=== PATIENT | male | born 1955 | race Caucasian/White ===

== ENCOUNTER 2020-03-26 14:25 | Outpatient (REF) | payer OTHER, SELFPAY ==
[2020-03-26 17:32] LABS: Influenza A PCR NEGATIVE (Negative); Influenza B PCR NEGATIVE (Negative); Resp Syncy Virus RNA Qual PCR NEGATIVE (Negative); SARS COV2 PCR INHOUSE NEGATIVE (Negative)
== END 2020-03-26 14:26 | disposition home or self-care (01) ==
LOC: HO.LAB 14:25
PROVIDERS: Visit Provider Nurse Practitioner Family
DX: Z20.828 Contact with and (suspected) exposure to other viral communicable diseases (principal); R06.02 Shortness of breath
CPT/HCPCS: 0241U

== ENCOUNTER 2020-04-30 11:23 | Inpatient (IN) | payer OTHER, SELFPAY ==
[2020-04-30] VITALS (7 sets, daily range): BP systolic 126–179; BP diastolic 81–100; PULSE 89–109; RESP 18–20; TEMP 36.9–39.2; O2SAT 88–98; BMI 34.0
--- NOTE | 2020-04-30 | XR_ITS ---
EXAMINATION: XR CHEST CLINICAL INFORMATION: Hypoxia COMPARISON: None TECHNIQUE: Frontal view of the chest was obtained. FINDINGS: The cardiac silhouette does not appear enlarged. There is question of increased right perihilar lung markings.. The lungs are otherwise clear. There is no pleural effusion or pneumothorax. There are degenerative changes of the spine. XR/XR chest 1V IMPRESSION: Question increased right perihilar lung markings. Otherwise unremarkable exam.
--- NOTE | 2020-04-30 12:22 | ECG_ITS ---
Test Reason : FEVER Blood Pressure : / mmHG Vent. Rate : 087 BPM Atrial Rate : 087 BPM P-R Int : 156 ms QRS Dur : 084 ms QT Int : 374 ms P-R-T Axes : 042 -18 -15 degrees QTc Int : 450 ms Normal sinus rhythm Inferior infarct , age undetermined Abnormal ECG No previous ECGs available Referred By: Chivo Willis Electronically Signed By:Jadon Fink
--- NOTE | 2020-04-30 12:30 | ED_ITS ---
HPI - General Adult General Chief complaint: Fever Stated complaint: covid symptoms Time Seen by Provider: 04/30/20 13:43 Source: patient Mode of arrival: ambulatory Limitations: no limitations History of Present Illness HPI narrative: Patient presents to ED for chest pain when coughing, weakness, headache, and body ache for the past 3 days. Patient states recently tested positive for COVID-19 virus 4 days ago. Patient states family members also tested positive. Patient denies any shortness of breath. Patient states no swelling of lower extremity, calf pain, coughing up blood, recent surgery, or recent travel. Related Data Home Medications Medication Instructions Recorded Confirmed aspirin 81 mg PO DAILY 04/30/20 04/30/20 celecoxib 200 mg PO DAILY 04/30/20 04/30/20 empagliflozin [Jardiance] 10 mg PO DAILY 04/30/20 04/30/20 folic acid 1 mg PO DAILY 04/30/20 04/30/20 gabapentin 300 mg PO TID 04/30/20 04/30/20 loratadine 10 mg PO DAILY 04/30/20 04/30/20 nebivolol [Bystolic] 20 mg PO DAILY 04/30/20 04/30/20 omega-3 fatty acids-fish oil [Fish 1 cap PO BID 04/30/20 04/30/20 Oil] pantoprazole 40 mg PO DAILY 04/30/20 04/30/20 rosuvastatin [Crestor] 20 mg PO DAILY 04/30/20 04/30/20 sitagliptin-metformin [Janumet XR] 1 tab PO BID 04/30/20 04/30/20 sulfasalazine 500 mg PO TID 04/30/20 04/30/20 Allergies Allergy/AdvReac Type Severity Reaction Status Date / Time No Known Allergies Allergy Verified 04/30/20 11:54 Review of Systems Review of Systems: Yes all other systems are reviewed and are negative Constitutional: Constitutional: Reports as per HPI, Reports no additional constitutional complaints, Reports body ache(s), Reports chills, Reports fatigue and Reports fever(s) Eyes: Eyes: Reports as per HPI and Reports no additional eye complaints ENT: Reports system reviewed and no additional complaints, except as d ocumented and Reports as per HPI Cardiovascular: Cardiovascular: Reports as per HPI and Reports no additional cardiovascular complaints Respiratory: Respiratory: Reports as per HPI, Reports no additional respiratory complaints and Reports pain with cough Gastrointestinal: Gastrointestinal: Reports as per HPI and Reports no additional gastrointestinal complaints Musculoskeletal: Musculoskeletal: Reports no additional musculoskeletal complaints and Reports as per HPI Comments: Negative for swelling of lower extremities, calf pain, or redness Neurologic: Reports system reviewed and no additional complaints, except as documented and Reports as per HPI Psychiatric: Psychiatric: Reports no additional psychiatric complaints and Reports as per HPI Endocrine: Endocrine: Reports fatigue [facility] Past Medical History Medical History (Updated 05/01/20 @ 08:52 by ALVERTO Roca) Diabetes Hypercholesteremia Hypertension Social History Social History Household Members: Significant Other Housing: House Do you presently have visiting nurse or other home services: No Smoking Status: Never smoker Use of substances other than those prescribed or required for medical reasons: No Currently Displaying Signs/Symptoms of Drug Intoxication Withdrawal: No Have you been hit, kicked, punched, or otherwise hurt by someone within the past year? If so, by whom?: No Do you feel safe in your current relationship?: Yes Is there a partner from a previous relationship who is making you feel unsafe now?: No Are you made to feel afraid or neglected: No Spiritual Healthcare Practices: RASTAFARIAN Spiritism Healthcare Practices: RASTAFARIAN Cultural Healthcare Practices: N/A Advance Directives: No Advance Directives Information Provided: Yes Do you have thoughts of harming others: None Do you have a plan to hurt others: No Plan Recently lost weight without trying: No Physical Exam Vital Signs: Vital Signs: Last Vital Signs Temp 99.2 F 05/01/20 07:57 Pulse 116 H 05/01/20 07:57 Resp 22 H 05/01/20 07:57 BP 171/91 H 05/01/20 07:57 Pulse Ox 94 05/01/20 07:57 Body Mass Index 34.0 Const: General: cooperative, healthy appearing, comfortable, no acute distress, well developed, alert and awake Orientation/consciousness: oriented to person, oriented to place, oriented to time and patient oriented x3 HENMT: Head: Yes normal to inspection and Yes No palpable skull fracture present Eyes: General: appearance normal, both eyes and all related structures Neck: Neck: Yes normal visual inspection and Yes full ROM Chest: Chest palpation & inspection: normal inspection of the chest and normal palpation of entire chest wall Resp: Effort & Inspection: normal respiratory effort and able to speak in complete sentences Auscultation: clear to auscultation bilaterally Cardio: Jugular venous distension: no JVD Heart sounds: S1 normal heart sound present and S2 normal heart sound present GI: Inspection: Yes normal to inspection Palpation (GI): Soft to palpation, not firm, nontender, no guarding and not rigid : General: No CVA tenderness and Yes no CVA tenderness Back/Spine/Pelvis: Back: no CVA tenderness, No CVA tenderness and No back tend erness Skin: General skin exam: no rashes or lesions noted and elasticity normal Neuro: General: oriented to person, oriented to place, oriented to time, patient oriented x3, gait normal and CN's II-XI intact bilaterally Cranial nerves: Yes CN's II-XII intact bilaterally Extrem: Other: Lower extremity negative for any swelling, pitting edema, calf tenderness. General: Yes normal to inspection and Yes full ROM Psych: Appearance: grossly normal and well kempt Course Course Course Narrative: Patient O2 saturation room air 91%, but patient is not in any distress. Patient is not using accessory muscles or try potting. Patient may complains the cough. Will do labs including EKG, troponin, D-dimer, and chest x-ray. Reevaluation(s) Reevaluation #1: Patient D-dimer came back elevated and sent for chest CTA. Rule out PE. Patient once again was re-evaluated lungs are clear. Patient walked around the ED and O2 sat dropped from 90% to 88%. Patient is not in respiratory distress. Will contact hospitalist Time: 16:45 Reevaluation #2: Patient started on antibiotics, Decadron, and will be admitted to the hospital. Time: 17:00 Medical Decision Making [facility] Narrative Medical decision making narrative: COVID pneumonia Lab Data Result diagrams: 05/01/20 06:08 05/01/20 06:08 Labs: Lab Results 04/30/20 04/30/20 04/30/20 Range/Units 12:44 12:45 12:45 WBC (4.8-10.8) X10*3/uL RBC (4.60-5.80) X10*6/uL Hgb (14.0-18.0) g/dl Hct (42-52) % MCV (80-98) fL MCH (27.0-33.0) pg MCHC (31.0-36.0) g/dl RDW (11.0-16.0) % Plt Count (160-400) X10*3/uL MPV (9.4-12.4) fL Immature Gran % (Auto) (0.0-0.4) % Neut % (Auto) (45-73) % Lymph % (Auto) (20-40) % [place] % (Auto) (2-11) % Eos % (Auto) (0-4) % Baso % (Auto) (0-2) % Lymph # (Auto) (1.2-4.9) X10*3/uL [place] # (Auto) (0.1-1.2) X10*3/uL Eos # (Auto) (0.0-0.4) X10*3/uL Baso # (Auto) (0.0-0.2) X10*3/uL Abs Immat Gran (auto) (0.00-0.03) X10*3/uL Absolute Neuts (auto) (2.0-8.3) X10*3/uL Absolute Nucleated RBC (0.0-0.012) X10*3/uL Nucleated RBC % (auto) (0.0-0.2) /100WBC PT (10.8-13.0) SEC INR (0.9-1.1) APTT (24.1-38.0) SEC D-Dimer NG/ML Sodium 138 (135-145) mmol/L Potassium 4.1 (3.3-5.1) mmol/l Chloride 104 (96-108) mmol/L Carbon Dioxide 18 L (22-29) mmol/L Anion Gap 20 (12-20) BUN 21 H (9-16) mg/dL Creatinine 0.94 (0.5-1.4) mg/dL Estim Creat Clear Calc 94.4 Estimated GFR > 60 Random Glucose 247 H (60-115) mg/dL Lactic Acid 1.6 (0.5-2.0) mmol/L Calcium 8.2 L (8.4-10.2) mg/dL Ferritin 141 (20-250) ng/mL Total Bilirubin 0.6 (0.0-1.0) mg/dL Direct Bilirubin 0.2 (0.0-0.5) mg/dL AST 30 (5-37) U/L ALT 30 (0-40) U/L Alkaline Phosphatase 75 (39-117) U/L Lactate Dehydrogenase 365 H (118-273) U/L Troponin I High Sens 7.5 (<3.5-35.0) ng/L C-Reactive Protein 18.78 H (< or = 0.50) mg/dL Total Protein 6.9 (6.5-8.0) g/dL Albumin 4.2 (3.5-5.0) g/dL Procalcitonin ng/mL 04/30/20 04/30/20 04/30/20 Range/Units 12:45 12:45 12:58 WBC 5.2 (4.8-10.8) X10*3/uL RBC 5.03 (4.60-5.80) X10*6/uL Hgb 14.3 (14.0-18.0) g/dl Hct 45.0 (42-52) % MCV 89.5 (80-98) fL MCH 28.4 (27.0-33.0) pg MCHC 31.8 (31.0-36.0) g/dl RDW 15.5 (11.0-16.0) % Plt Count 98 L (160-400) X10*3/uL MPV 11.6 (9.4-12.4) fL Immature Gran % (Auto) 1.0 H (0.0-0.4) % Neut % (Auto) 75.8 H (45-73) % Lymph % (Auto) 13.2 L (20-40) % Clinch % (Auto) 9.4 (2-11) % Eos % (Auto) 0.2 (0-4) % Baso % (Auto) 0.4 (0-2) % Lymph # (Auto) 0.7 L (1.2-4.9) X10*3/uL Clinch # (Auto) 0.5 (0.1-1.2) X10*3/uL Eos # (Auto) 0.0 (0.0-0.4) X10*3/uL Baso # (Auto) 0.0 (0.0-0.2) X10*3/uL Abs Immat Gran (auto) 0.05 H (0.00-0.03) X10*3/uL Absolute Neuts (auto) 4.0 (2.0-8.3) X10*3/uL Absolute Nucleated RBC 0.000 (0.0-0.012) X10*3/uL Nucleated RBC % (auto) 0.0 (0.0-0.2) /100WBC PT 14.0 H (10.8-13.0) SEC INR 1.2 H (0.9-1.1) APTT 37.5 (24.1-38.0) SEC D-Dimer 343 NG/ML Sodium (135-145) mmol/L Potassium (3.3-5.1) mmol/l Chloride (96-108) mmol/L Carbon Dioxide (22-29) mmol/L Anion Gap (12-20) BUN (9-16) mg/dL Creatinine (0.5-1.4) mg/dL Estim Creat Clear Calc Estimated GFR Random Glucose (60-115) mg/dL Lactic Acid (0.5-2.0) mmol/L Calcium (8.4-10.2) mg/dL Ferritin (20-250) ng/mL Total Bilirubin (0.0-1.0) mg/dL Direct Bilirubin (0.0-0.5) mg/dL AST (5-37) U/L ALT (0-40) U/L Alkaline Phosphatase (39-117) U/L Lactate Dehydrogenase (118-273) U/L Troponin I High Sens (<3.5-35.0) ng/L C-Reactive Protein (< or = 0.50) mg/dL Total Protein (6.5-8.0) g/dL Albumin (3.5-5.0) g/dL Procalcitonin 0.29 ng/mL 04/30/20 Range/Units 16:14 WBC (4.8-10.8) X10*3/uL RBC (4.60-5.80) X10*6/uL Hgb (14.0-18.0) g/dl Hct (42-52) % MCV (80-98) fL MCH (27.0-33.0) pg MCHC (31.0-36.0) g/dl RDW (11.0-16.0) % Plt Count (160-400) X10*3/uL MPV (9.4-12.4) fL Immature Gran % (Auto) (0.0-0.4) % Neut % (Auto) (45-73) % Lymph % (Auto) (20-40) % [place] % (Auto) (2-11) % Eos % (Auto) (0-4) % Baso % (Auto) (0-2) % Lymph # (Auto) (1.2-4.9) X10*3/uL [place] # (Auto) (0.1-1.2) X10*3/uL Eos # (Auto) (0.0-0.4) X10*3/uL Baso # (Auto) (0.0-0.2) X10*3/uL Abs Immat Gran (auto) (0.00-0.03) X10*3/uL Absolute Neuts (auto) (2.0-8.3) X10*3/uL Absolute Nucleated RBC (0.0-0.012) X10*3/uL Nucleated RBC % (auto) (0.0-0.2) /100WBC PT (10.8-13.0) SEC INR (0.9-1.1) APTT (24.1-38.0) SEC D-Dimer NG/ML Sodium (135-145) mmol/L Potassium (3.3-5.1) mmol/l Chloride (96-108) mmol/L Carbon Dioxide (22-29) mmol/L Anion Gap (12-20) BUN (9-16) mg/dL Creatinine (0.5-1.4) mg/dL Estim Creat Clear Calc Estimated GFR Random Glucose (60-115) mg/dL Lactic Acid (0.5-2.0) mmol/L Calcium (8.4-10.2) mg/dL Ferritin (20-250) ng/mL Total Bilirubin (0.0-1.0) mg/dL Direct Bilirubin (0.0-0.5) mg/dL AST (5-37) U/L ALT (0-40) U/L Alkaline Phosphatase (39-117) U/L Lactate Dehydrogenase (118-273) U/L Troponin I High Sens 10.8 (<3.5-35.0) ng/L C-Reactive Protein (< or = 0.50) mg/dL Total Protein (6.5-8.0) g/dL Albumin (3.5-5.0) g/dL Procalcitonin ng/mL ECG Data Interpretation: Normal Sinus Rhythm, Ventricular 87, NE 156, QTC 450. negative stmei Discharge Plan Discharge Clinical Impression: Shortness of Breath, COVID-19 Patient Disposition: Admitted As Inpatient Interventions: Admission Worksheet (ED) Last Done: 04/30/20 23:41 Discharge Date/Time: 04/30/20 23:42
[2020-04-30 13:00] LABS: INTERNATIONAL NORM RATIO 1.2 (0.9-1.1)
[2020-04-30 13:03] LABS: Partial Thromboplastin Time 37.5 SEC (24.1-38.0)
[2020-04-30 13:04] LABS: Basophils Percent Auto 0.4 % (0-2); Mean Corpuscular Volume 89.5 fL (80-98); PLT CLUMP 1; Red Blood Count 5.03 X10*6/uL (4.60-5.80); SCAN SMEAR FLAG 1
[2020-04-30 13:05] LABS: MANUAL DIFF FLAG NO
[2020-04-30 13:06] LABS: Eosinophils Percent Auto 0.2 % (0-4); Hemoglobin 14.3 g/dl (14.0-18.0); Imm Gran Abs Auto 0.05 X10*3/uL (0.00-0.03); Lymphocytes Absolute Auto 0.7 X10*3/uL (1.2-4.9); Lymphocytes Percent Auto 13.2 % (20-40); Mean Corpuscular HGB Conc 31.8 g/dl (31.0-36.0); Mean Corpuscular Hemoglobin 28.4 pg (27.0-33.0); Mean Platelet Volume 11.6 fL (9.4-12.4); Monocytes Absolute Auto 0.5 X10*3/uL (0.1-1.2); Monocytes Percent Auto 9.4 % (2-11); Neutrophils Percent Auto 75.8 % (45-73); Red Cell Distribution Width 15.5 % (11.0-16.0); White Blood Count 5.2 X10*3/uL (4.8-10.8)
[2020-04-30 13:07] LABS: Platelet Count 98 X10*3/uL (160-400)
[2020-04-30 13:28] LABS: Lactic Acid 1.6 mmol/L (0.5-2.0)
[2020-04-30 13:36] LABS: Troponin-I High Sensitivity 7.5 ng/L (<3.5-35.0)
[2020-04-30 13:38] LABS: Alanine Aminotransferase 30 U/L (0-40); Albumin Level 4.2 g/dL (3.5-5.0); Alkaline Phosphatase 75 U/L (39-117); Anion Gap 20 (12-20); Aspartate Amino Transferase 30 U/L (5-37); Bilirubin Direct 0.2 mg/dL (0.0-0.5); Bilirubin Total 0.6 mg/dL (0.0-1.0); Blood Urea Nitrogen 21 mg/dL (9-16); Calcium 8.2 mg/dL (8.4-10.2); Carbon Dioxide 18 mmol/L (22-29); Chloride 104 mmol/L (96-108); Creatinine Clr Calc Pharmacy 94.4; Estimated Glomerular Filt Rate > 60; Glucose Random 247 mg/dL (60-115); Lactate Dehydrogenase 365 U/L (118-273); Potassium 4.1 mmol/l (3.3-5.1); Sodium 138 mmol/L (135-145); Total Protein 6.9 g/dL (6.5-8.0)
[2020-04-30 13:57] LABS: Ferritin 141 ng/mL (20-250)
[2020-04-30 14:01] LABS: Procalcitonin 0.29 ng/mL
[2020-04-30] MEDS: 0.9 % Sodium Chloride 1,000 ML 999 ML IV (14:03)
[2020-04-30 14:07] LABS: D Dimer 343 NG/ML
--- NOTE | 2020-04-30 14:53 | CT_ITS ---
EXAMINATION: CT ANGIOGRAM OF THE CHEST WITH AND WITHOUT CONTRAST (CT PULMONARY ANGIOGRAM FOR PE) CLINICAL INFORMATION: Reason for Exam elevated D-idmer. PE? COMPARISON: Previous chest x-ray from earlier the same day TECHNIQUE: Prior to contrast administration, noncontrast localization images were obtained. Subsequently, multidetector volumetric imaging was performed from the thoracic inlet to below the diaphragms following the administration of 65 mL Omnipaque 350 intravenous contrast. No contrast reaction reported Sagittal, coronal, and MIP oblique sagittal reformatted images were obtained on the CT workstation, uploaded to PACS, and reviewed. This CT examination was performed using dose optimization techniques as appropriate, variously including the following: *Automated exposure control *Adjustment of mA and/or kV according to patient size (this includes techniques or standardized protocols for targeted exams where dose is matched to indication/reason for exam; i.e. extremities or head) *Use of iterative reconstruction technique Total exam dose-length product 494 mGy-cm FINDINGS: QUALITY OF STUDY/CONTRAST BOLUS: Satisfactory. PULMONARY ARTERIES: No central or segmental pulmonary emboli. THORACIC AORTA: No aneurysm or dissection. LUNG: There are patchy peripheral groundglass attenuation infiltrates. These are seen throughout the lungs. Appearance is nonspecific but: Infection should be considered PLEURA: No pleural effusion or pneumothorax. MEDIASTINUM: Upper normal heart size. No pericardial effusion. There are small mediastinal and bilateral hilar lymph nodes. No evidence of septal bowing or right heart strain. CHEST WALL/AXILLA: No axillary or internal mammary lymphadenopathy. OSSEOUS STRUCTURES: No acute or suspicious osseous abnormality. UPPER ABDOMEN: There is diverticulosis of the colon. No reflux of contrast into the hepatic veins to suggest elevated right heart pressures. CT/CT angio chest PE protocol IMPRESSION: No evidence of pulmonary embolism. Bilateral peripheral groundglass attenuation infiltrates. Chest x-ray appearance is nonspecific but suspicious for Covid infection. VTE: negative
[2020-04-30] MEDS: iohexoL 350 MG/ML 100 ML INFUS..BTL IV (16:33)
[2020-04-30] MEDS: Acetaminophen 325 MG TABLET 650 MG PO (16:44)
[2020-04-30 16:49] LABS: Troponin-I High Sensitivity 10.8 ng/L (<3.5-35.0)
[2020-04-30] MEDS: cefTRIAXone sodium 2 GM in 0.9 % Sodium Chloride 50 ML IV (17:40)
[2020-04-30] MEDS: Azithromycin 500 MG in 0.9 % Sodium Chloride 250 ML 125 MG IV (18:04)
--- NOTE | 2020-04-30 18:14 | PM.EVENT ---
Event Note Date of Service: 05/02/20 Event Note: addendum to H+P by ELEN Macedo I interviewed and examined the patient. I discussed their presentation and management with the mid-level provider. I reviewed the history and physical and agree with the documentation, with the following additions and corrections: 65yo M visiting from [place], PMx of HTN, DM2, and RA presenting with 7 days of generalized malaise, myalgias, cough, dyspnea, and frontal JREEZ who tested positive for COVID-19 4 days prior to presentation. On exam, febrile to 102.6, HR 98, RR 19, BP 126/81, SaO2 88 on RA now 96 on 2.5L. not in acute distress. not tachypneic. auscultation deferred due to COVID-19. normal pulses, extremities warm and pink. CTA shows no evidence of pulmonary embolism. Bilateral peripheral groundglass attenuation infiltrates. Chest x-ray appearance is nonspecific but suspicious for Covid infection. WBC 5.2 with 13.2% lymphs, plts 98, D-dimer 343, SCr 0.94, LDH 365, CRP 18.78, PCT 0.29, hs Tn-I 7.5 ->10.8 Impression of acute hypoxic respiratory failure and viral sepsis secondary to COVID-19 pneumonia. Plan admit to ISO, give 10d of dexamethasone, consult ID to start remdesivir, supplemental O2, continue b-maurilio, hold oral hypoglycemics and give correction-dose lispro, continue sulfasalazine VTE ppx with LMWH.
[2020-04-30 18:34] LABS: C Reactive Protein 18.78 mg/dL (< or = 0.50)
[2020-04-30] MEDS: Acetaminophen 325 MG TABLET PO (18:40)
--- NOTE | 2020-04-30 19:59 | PC.NURSE ---
NO DIET ORDER FOR PATIENT. CALL PLACED TO HOSPITALIST FOR ORDER.
--- NOTE | 2020-04-30 21:38 | PC.NURSE ---
CALL MADE OUT TO OBS FOR REPORT, EXPECTING CALL BACK
[2020-05-01] MEDS: Insulin Lispro 100 UNIT/ML 3 ML VIAL SUBCUT ×4 (00:20→21:48)
[2020-05-01 00:40] LABS: Glucose, Whole Blood 247 mg/dL (60-115)
[2020-05-01] MEDS: 0.9 % Sodium Chloride Flush 3 ML SYRINGE IVFLUSH ×4 (00:48→23:11)
[2020-05-01 03:43] VITALS: BP 156/92; PULSE 84; RESP 22; TEMP 37.1; O2SAT 96
[2020-05-01 06:44] LABS: MANUAL DIFF FLAG NO
[2020-05-01 07:18] LABS: Basophils Percent Auto 0.2 % (0-2); Hemoglobin 13.6 g/dl (14.0-18.0); Imm Gran Abs Auto 0.05 X10*3/uL (0.00-0.03); Imm Gran Pct Auto 0.9 % (0.0-0.4); Lymphocytes Absolute Auto 0.9 X10*3/uL (1.2-4.9); Lymphocytes Percent Auto 16.5 % (20-40); Mean Corpuscular HGB Conc 31.6 g/dl (31.0-36.0); Mean Corpuscular Hemoglobin 28.3 pg (27.0-33.0); Mean Corpuscular Volume 89.4 fL (80-98); Mean Platelet Volume 12.2 fL (9.4-12.4); Monocytes Absolute Auto 0.6 X10*3/uL (0.1-1.2); Monocytes Percent Auto 10.3 % (2-11); Neutrophils Absolute Auto 3.9 X10*3/uL (2.0-8.3); Neutrophils Percent Auto 72.1 % (45-73); Platelet Count 110 X10*3/uL (160-400); Red Blood Count 4.81 X10*6/uL (4.60-5.80); White Blood Count 5.5 X10*3/uL (4.8-10.8)
[2020-05-01 07:41] LABS: Anion Gap 18 (12-20); Blood Urea Nitrogen 21 mg/dL (9-16); Carbon Dioxide 21 mmol/L (22-29); Chloride 105 mmol/L (96-108); Creatinine Clr Calc Pharmacy 109.6; Estimated Glomerular Filt Rate > 60; Glucose Random 153 mg/dL (60-115); Potassium 4.7 mmol/l (3.3-5.1); Sodium 139 mmol/L (135-145)
[2020-05-01 07:57] VITALS: BP 171/91; PULSE 116; RESP 22; TEMP 37.3; O2SAT 94
--- NOTE | 2020-05-01 08:04 | MHC.PIE ---
p: patient reported a drinking pattern of 4 bourbons / day plus 3 glasses of wine, or as much drinking as he can. last drink reportedly the day before admission. patient educated as to risk for withdrawal and possible need for phenobarbital protocol, and in agreement with possible need for implementation. i: notified md, no order for phenobarbital, but CIWA ordered e: ciwa has been 0; day shift continuing to monitor.
[2020-05-01 08:06] LABS: Glucose, Whole Blood 127 mg/dL (60-115)
[2020-05-01 10:33] LABS: Estimated Average Glucose 174 mg/dL; Hemoglobin A1c % 7.7 %
[2020-05-01 11:29] VITALS: BP 182/95; PULSE 124; RESP 22; TEMP 38.6; O2SAT 95
[2020-05-01 11:36] LABS: Glucose, Whole Blood 223 mg/dL (60-115)
[2020-05-01 11:41] VITALS: BMI 34.0
[2020-05-01] MEDS: guaiFENesin DM 100/10/5 ML 5 ML SYRUP PO (11:54)
[2020-05-01] MEDS: Acetaminophen 325 MG TABLET 650 MG PO ×3 (11:54→23:08)
--- NOTE | 2020-05-01 12:14 | MHC.CM.PN ---
pt lives c his in their home. he is active in his own care and in the community. if patient needs help then his can help, this will include transportation. pt denies the need for vna at this time. dc plan is home no svcs. cm to cont. to follow.
[2020-05-01 12:31] LABS: Alanine Aminotransferase 25 U/L (0-40); Albumin Level 3.8 g/dL (3.5-5.0); Alkaline Phosphatase 68 U/L (39-117); Aspartate Amino Transferase 27 U/L (5-37); Bilirubin Direct 0.2 mg/dL (0.0-0.5); Bilirubin Total 0.5 mg/dL (0.0-1.0); Total Protein 6.2 g/dL (6.5-8.0)
[2020-05-01] MEDS: Remdesivir 200 MG in 0.9 % Sodium Chloride 210 ML 105 MG IV (14:08)
[2020-05-01 16:00] VITALS: BP 163/90; PULSE 105; RESP 22; TEMP 39.3; O2SAT 92
--- NOTE | 2020-05-01 16:10 | P.PNIM_ITS ---
Subjective Subjective Date of Service: 05/01/20 Interval History: mild dyspnea febrile to 101.4 this am no chest pain no N/V Physical Exam Vital Signs: Vital Signs: Last Vital Signs Temp 101.4 F H 05/01/20 11:29 Pulse 124 H 05/01/20 11:29 Resp 22 H 05/01/20 11:29 BP 182/95 H 05/01/20 11:29 Pulse Ox 95 05/01/20 11:29 Body Mass Index 34.0 Gen: in no acute distress HEENT: sclera anicteric, moist mucus membranes Neck: supple Lungs: no respiratory distress, auscultation deferred due to COVID-19 Heart: normal peripheral pulses Abd: soft, non-tender, non-distended Ext: no cyanosis, clubbing, or edema Skin: warm/well-perfused Neuro: alert and oriented x3, no focal findings Psych: appropriate affect Objective Data Current Medications Generic Name Dose Route Start Last Admin Trade Name Freq PRN Reason Stop Dose Admin Acetaminophen 650 mg 04/30/20 23:56 05/01/20 11:54 Acetaminophen 325 Mg Tablet PO 650 mg Q6H PRN Administration Pain, Mild (Pain Scale 1-3) Aspirin 81 mg 05/01/20 16:00 Aspirin Enteric Coated 81 Mg Tablet.Dr PO DAILY [facility] Atorvastatin Calcium 80 mg 05/01/20 21:00 Atorvastatin Calcium 80 Mg Tablet PO BEDTIME [facility] Dexamethasone Sodium Phosphate 6 mg 05/01/20 16:00 Dexamethasone Sod Phosphate 4 Mg/Ml Vial IVPUSH Q24H [facility] Folic Acid 1 mg 05/01/20 16:00 Folic Acid 1 Mg Tablet PO DAILY [facility] Gabapentin 300 mg 05/01/20 16:00 Gabapentin 300 Mg Capsule PO TID [facility] Guaifenesin/Dextromethorphan 5 ml 05/01/20 11:50 05/01/20 11:54 Guaifenesin Dm 100/10/5 Ml 5 Ml Syrup PO 5 ml Q4H PRN Administration cough Remdesivir 100 mg/ Sodium 230 mls @ 115 mls/hr 05/02/20 13:00 Chloride IV 05/05/20 14:59 Q24H [facility] Insulin Human Lispro 0 unit 04/30/20 23:56 05/01/20 14:08 Insulin Lispro 100 Unit/Ml 3 Ml Vial SUBCUT 4 unit QIDACHS [facility] Administration Protocol Loratadine 10 mg 05/01/20 16:00 Loratadine 10 Mg Tablet PO DAILY [facility] Non-Formulary Medication 20 mg 05/01/20 16:00 Nebivolol [Bystolic] PO DAILY [facility] Omeprazole 20 mg 05/02/20 06:30 Omeprazole 20 Mg Capsule.Dr PO DAILY@0630 [facility] Ondansetron HCl 4 mg 04/30/20 23:56 Ondansetron Hcl 4 Mg/2 Ml Vial IVPUSH Q8H PRN Nausea and Vomiting Sodium Chloride 3 ml 05/01/20 00:00 05/01/20 08:10 0.9 % Sodium Chloride Flush 3 Ml Syringe IVFLUSH 3 ml QSHIFT [facility] Administration Sulfasalazine 500 mg 05/01/20 16:00 Sulfasalazine 500 Mg Tablet PO TID [facility] Labs CBC & Chem 7: 05/01/20 06:08 05/01/20 06:08 Labs: Laboratory Results - last 24 hr 04/30/20 04/30/20 04/30/20 12:45 16:14 23:51 WBC RBC Hgb Hct MCV MCH MCHC RDW Plt Count MPV Immature Gran % (Auto) Neut % (Auto) Lymph % (Auto) [place] % (Auto) Eos % (Auto) Baso % (Auto) Lymph # (Auto) [place] # (Auto) Eos # (Auto) Baso # (Auto) Abs Immat Gran (auto) Absolute Neuts (auto) Absolute Nucleated RBC Nucleated RBC % (auto) Sodium Potassium Chloride Carbon Dioxide Anion Gap BUN Creatinine Estim Creat Clear Calc Estimated GFR POC Glucose 247 H Random Glucose Estimat Average Glucose Hemoglobin A1c % Calcium Total Bilirubin Direct Bilirubin AST ALT Alkaline Phosphatase Troponin I High Sens 10.8 C-Reactive Protein 18.78 H Total Protein Albumin 05/01/20 05/01/20 05/01/20 06:08 06:08 06:08 WBC 5.5 RBC 4.81 Hgb 13.6 L Hct 43.0 MCV 89.4 MCH 28.3 MCHC 31.6 RDW 15.0 Plt Count 110 L MPV 12.2 Immature Gran % (Auto) 0.9 H Neut % (Auto) 72.1 Lymph % (Auto) 16.5 L [place] % (Auto) 10.3 Eos % (Auto) 0.0 Baso % (Auto) 0.2 Lymph # (Auto) 0.9 L [place] # (Auto) 0.6 Eos # (Auto) 0.0 Baso # (Auto) 0.0 Abs Immat Gran (auto) 0.05 H Absolute Neuts (auto) 3.9 Absolute Nucleated RBC 0.000 Nucleated RBC % (auto) 0.0 Sodium 139 Potassium 4.7 Chloride 105 Carbon Dioxide 21 L Anion Gap 18 BUN 21 H Creatinine 0.81 Estim Creat Clear Calc 109.6 Estimated GFR > 60 POC Glucose Random Glucose 153 H D Estimat Average Glucose 174 Hemoglobin A1c % 7.7 Calcium 8.0 L Total Bilirubin 0.5 Direct Bilirubin 0.2 AST 27 ALT 25 Alkaline Phosphatase 68 Troponin I High Sens C-Reactive Protein Total Protein 6.2 L Albumin 3.8 05/01/20 05/01/20 07:56 11:28 WBC RBC Hgb Hct MCV MCH MCHC RDW Plt Count MPV Immature Gran % (Auto) Neut % (Auto) Lymph % (Auto) [place] % (Auto) Eos % (Auto) Baso % (Auto) Lymph # (Auto) [place] # (Auto) Eos # (Auto) Baso # (Auto) Abs Immat Gran (auto) Absolute Neuts (auto) Absolute Nucleated RBC Nucleated RBC % (auto) Sodium Potassium Chloride Carbon Dioxide Anion Gap BUN Creatinine Estim Creat Clear Calc Estimated GFR POC Glucose 127 H 223 H Random Glucose Estimat Average Glucose Hemoglobin A1c % Calcium Total Bilirubin Direct Bilirubin AST ALT Alkaline Phosphatase Troponin I High Sens C-Reactive Protein Total Protein Albumin Microbiology Microbiology Results: Microbiology 04/30/20 12:58 Blood - Venous Blood Culture - Preliminary No growth after 24 hours. 04/30/20 12:44 Blood - Venous Blood Culture - Preliminary No growth after 24 hours. Assessment and Plan (1) COVID-19: Status: Acute Assessment and Plan: hospital d#2 65yo M presenting on day #7 of COVID-19 infection with hypoxia # COVID-19 pneumonia, severe - dexamethasone d#2, remdesivir d#09/01, trend inflammatory markers # acute hypoxic respiratory failure - supplemental O2, encouraged awake proning # thrombocytopenia - probably due to COVID-19, improving, monitor # DM2, A1c 7.7 - correction-dose lispro, hold OHGs # HTN - carvedilol formulary equivalent of pt's nebivolol # HLD - atorvastatin formulary equivalent of pt's rosuvastatin # RA - continue sulfasalazine # VTE ppx - LMWH
[2020-05-01 16:17] LABS: Glucose, Whole Blood 216 mg/dL (60-115)
[2020-05-01] MEDS: Folic Acid 1 MG TABLET PO (16:31)
[2020-05-01] MEDS: dexAMETHasone sod phosphate 4 MG/ML VIAL 6 MG IVPUSH (16:31)
[2020-05-01] MEDS: Loratadine 10 MG TABLET PO (16:31)
[2020-05-01] MEDS: Gabapentin 300 MG CAPSULE PO ×2 (16:31→20:00)
[2020-05-01] MEDS: Aspirin Enteric Coated 81 MG TABLET.DR PO (16:31)
[2020-05-01] MEDS: sulfaSALAzine 500 MG TABLET PO ×2 (17:47→21:48)
--- NOTE | 2020-05-01 18:19 | PC.NURSE ---
Patient remains in iso unit on tele. Remains on 3L NC. Desats with exertion but sats come back up with rest. Received first dose of remdesevir and decadron. T max 102.9. Dr. Laughlin made aware. Pt given PRN tylenol and icepacks and came down to 101.9. Will continue to monitor.
[2020-05-01 18:23] VITALS: TEMP 38.8
--- NOTE | 2020-05-01 18:42 | HP_ITS ---
DATE OF SERVICE: 04/30/2020 PRIMARY CARE PROVIDER: In [place]. CHIEF COMPLAINT: Shortness of breath and fever. HISTORY OF PRESENT ILLNESS: A 65-year-old man, presenting with complaints of worsening shortness of breath, fever, and headache over the last several days. The patient was recently diagnosed with COVID-19 and has been having fevers up to 102 to 103 at home. He reported he started having some increase in shortness of breath, body aches, weakness, and decided to come into the ER to be evaluated. In the ER, all of his labs were within acceptable limits. LDH 365, ferritin 141. He was noted to be hypoxic at 88% on room air. He did have a temperature of 100.7, heart rate of 109. Chest CTA showed no pulmonary embolus, bilateral peripheral ground-glass attenuation infiltrates. He did receive a dose of dexamethasone, ceftriaxone, Tylenol, 1 L of IV fluid as well as azithromycin. He will be admitted for further management and treatment of COVID-19 pneumonia and acute hypoxic respiratory failure. PAST MEDICAL HISTORY: 1. Hypertension. 2. Hyperlipidemia. 3. Diabetes mellitus. 4. Neuropathy. 5. GERD. PAST SURGICAL HISTORY: Hernia repair, septal deviation repair. FAMILY HISTORY: No cardiac disease. SOCIAL HISTORY: Drinks 6 beers and 3 hard liquor drinks a day. No tobacco or illicit drug use. Denies any history of alcohol withdrawal. ALLERGIES: NO KNOWN ALLERGIES. MEDICATIONS: 1. Aspirin 81 mg daily. 2. Bystolic 20 mg p.o. daily. 3. Celebrex 200 mg p.o. daily. 4. Crestor 20 mg p.o. daily. 5. Fish oil 1000 mg daily. 6. Folic acid 1 mg daily. 7. Freestyle strips. 8. Gabapentin 300 mg daily. 9. Janumet XR 50-1000 mg tablets. 10. Jardiance 10 mg tablets. 11. Loratadine 10 mg tablets. 12. Pantoprazole sodium 40 mg tablets. 13. Sildenafil 100 mg tablets. 14. Sulfasalazine 500 mg tablets. REVIEW OF SYSTEMS: GENERAL: Reports fever, chills, and decrease in appetite. RESPIRATORY: See HPI. CARDIOVASCULAR: Denies any chest pain, orthopnea, PND, or edema. GASTROINTESTINAL: Denies any dysphagia, abdominal pain, nausea, vomiting, or diarrhea. GENITOURINARY: Denies any dysuria, frequency, or hematuria. MUSCULOSKELETAL: Reports some muscle aches. Denies any weakness or seizures. All other systems are reviewed and are negative. PHYSICAL EXAMINATION: CONSTITUTIONAL: Resting in bed. No acute distress. VITAL SIGNS: 100.7, 109, 18, 179/100, 88% on room air. SKIN: Intact without rashes or open sores. HEENT: Head is normocephalic, atraumatic. Eyes, pupils are PERRLA. Sclerae anicteric. Mouth and throat: Mucous membranes are intact and moist. NECK: Supple. No lymphadenopathy. No JVD noted. CHEST: Normal expansion. HEART: Regular rhythm. ABDOMEN: Nontender. NEURO: The patient is alert, oriented x3. No focal deficits noted. LABS: WBC 5.2, hemoglobin 14.3, hematocrit 45.0, platelets 98. Sodium is 138, potassium 4.1, chloride is 104, bicarb is 18, BUN is 21, creatinine is 0.94, glucose is 247. ASSESSMENT AND PLAN: A 65-year-old man, who is being admitted with acute respiratory failure secondary to COVID-19. 1. Acute respiratory failure with hypoxia secondary to COVID-19. Patient appears to have consolidation on CTA. We will treat with Rocephin and azithromycin, Decadron, supplemental oxygen, Tylenol for headache and fever. ID consultation. Isolation. Continue oxygen supplementation. 2. Hypertension. Continue Bystolic or formulary. 3. Diabetes mellitus. Sliding scale, ADA diet. 4. Hyperlipidemia. Continue aspirin and statin. 5. Neuropathy. Continue gabapentin. 6. Gastroesophageal reflux disease. Continue PPI. 7. Deep vein thrombosis prophylaxis with Lovenox. 8. Case discussed with Dr. Laughlin. 9. Full code. ELEN Carpio MD JR/MODL / [id number]
[2020-05-01 20:00] VITALS: BP 179/92; PULSE 99; RESP 20; TEMP 38.8; O2SAT 93
[2020-05-01] MEDS: Atorvastatin Calcium 80 MG TABLET PO (20:01)
[2020-05-01 21:05] LABS: Glucose, Whole Blood 268 mg/dL (60-115)
[2020-05-02] VITALS (9 sets, daily range): BP systolic 127–201; BP diastolic 58–101; PULSE 79–96; RESP 19–26; TEMP 36.4–38.1; O2SAT 90–96
[2020-05-02] MEDS: Omeprazole 20 MG CAPSULE.DR PO (05:36)
[2020-05-02 06:52] LABS: Basophils Percent Auto 0.2 % (0-2); Hemoglobin 13.8 g/dl (14.0-18.0); MANUAL DIFF FLAG SCAN; PLT CLUMP 1; SCAN SMEAR FLAG 1
[2020-05-02 06:54] LABS: Hematocrit 43.6 % (42-52); Imm Gran Abs Auto 0.03 X10*3/uL (0.00-0.03); Imm Gran Pct Auto 0.5 % (0.0-0.4); Lymphocytes Percent Auto 16.7 % (20-40); Mean Corpuscular HGB Conc 31.7 g/dl (31.0-36.0); Mean Corpuscular Hemoglobin 27.9 pg (27.0-33.0); Mean Corpuscular Volume 88.1 fL (80-98); Mean Platelet Volume 11.3 fL (9.4-12.4); Monocytes Absolute Auto 0.5 X10*3/uL (0.1-1.2); Monocytes Percent Auto 7.9 % (2-11); Neutrophils Absolute Auto 4.3 X10*3/uL (2.0-8.3); Neutrophils Percent Auto 74.7 % (45-73); Platelet Count 119 X10*3/uL (160-400); Red Blood Count 4.95 X10*6/uL (4.60-5.80); Red Cell Distribution Width 14.9 % (11.0-16.0); White Blood Count 5.7 X10*3/uL (4.8-10.8)
[2020-05-02 07:01] LABS: D Dimer 301 NG/ML
[2020-05-02 07:03] LABS: Alanine Aminotransferase 24 U/L (0-40); Albumin Level 3.8 g/dL (3.5-5.0); Alkaline Phosphatase 68 U/L (39-117); Anion Gap 14 (12-20); Aspartate Amino Transferase 30 U/L (5-37); Bilirubin Total 0.6 mg/dL (0.0-1.0); Blood Urea Nitrogen 23 mg/dL (9-16); C Reactive Protein 13.61 mg/dL (< or = 0.50); Calcium 7.9 mg/dL (8.4-10.2); Carbon Dioxide 27 mmol/L (22-29); Chloride 101 mmol/L (96-108); Creatinine Clr Calc Pharmacy 109.6; Estimated Glomerular Filt Rate > 60; Glucose Random 206 mg/dL (60-115); Lactate Dehydrogenase 439 U/L (118-273); Potassium 4.4 mmol/l (3.3-5.1); Sodium 138 mmol/L (135-145); Total Protein 6.1 g/dL (6.5-8.0)
[2020-05-02 07:23] LABS: Ferritin 338 ng/mL (20-250)
[2020-05-02 07:26] LABS: Procalcitonin 0.23 ng/mL
[2020-05-02 07:32] LABS: Glucose, Whole Blood 167 mg/dL (60-115)
[2020-05-02] MEDS: Loratadine 10 MG TABLET PO (08:27)
[2020-05-02] MEDS: Folic Acid 1 MG TABLET PO (08:27)
[2020-05-02] MEDS: Acetaminophen 325 MG TABLET 650 MG PO (08:27)
[2020-05-02] MEDS: 0.9 % Sodium Chloride Flush 3 ML SYRINGE IVFLUSH ×3 (08:27→20:43)
[2020-05-02] MEDS: Gabapentin 300 MG CAPSULE PO ×3 (08:27→20:42)
[2020-05-02] MEDS: Aspirin Enteric Coated 81 MG TABLET.DR PO (08:27)
[2020-05-02] MEDS: sulfaSALAzine 500 MG TABLET PO ×3 (08:27→20:42)
[2020-05-02] MEDS: Insulin Lispro 100 UNIT/ML 3 ML VIAL SUBCUT ×4 (08:28→20:42)
[2020-05-02] MEDS: guaiFENesin DM 100/10/5 ML 5 ML SYRUP PO ×2 (08:44→22:38)
[2020-05-02 11:23] LABS: Glucose, Whole Blood 273 mg/dL (60-115)
--- NOTE | 2020-05-02 12:51 | P.PNIM_ITS ---
Subjective Subjective Date of Service: 05/02/20 Interval History: febrile to 102.8 yesterday afternoon remains on 2.5L/min O2 no chest pain Physical Exam Vital Signs: Vital Signs: Last Vital Signs Temp 99.4 F 05/02/20 11:47 Pulse 92 05/02/20 11:47 Resp 25 H 05/02/20 11:47 BP 148/77 H 05/02/20 11:47 Pulse Ox 96 05/02/20 11:47 Body Mass Index 34.0 Gen: mild dyspnea HEENT: sclera anicteric, moist mucus membranes Neck: supple Lungs: tachypneic, auscultation deferred due to COVID-19 Heart: normal peripheral pulses Abd: soft, non-tender, non-distended Ext: no cyanosis, clubbing, or edema Skin: warm/well-perfused Neuro: alert and oriented x3, no focal findings Psych: appropriate affect Objective Data Current Medications Generic Name Dose Route Start Last Admin Trade Name Freq PRN Reason Stop Dose Admin Acetaminophen 650 mg 04/30/20 23:56 05/02/20 08:27 Acetaminophen 325 Mg Tablet PO 650 mg Q6H PRN Administration Pain, Mild (Pain Scale 1-3) Aspirin 81 mg 05/01/20 16:00 05/02/20 08:27 Aspirin Enteric Coated 81 Mg Tablet. PO 81 mg DAILY NAA Administration Atorvastatin Calcium 80 mg 05/01/20 21:00 05/01/20 20:01 Atorvastatin Calcium 80 Mg Tablet PO 80 mg BEDTIME NAA Administration Dexamethasone Sodium Phosphate 6 mg 05/01/20 16:00 05/01/20 16:31 Dexamethasone Sod Phosphate 4 Mg/Ml Vial IVPUSH 6 mg Q24H NAA Administration Folic Acid 1 mg 05/01/20 16:00 05/02/20 08:27 Folic Acid 1 Mg Tablet PO 1 mg DAILY NAA Administration Gabapentin 300 mg 05/01/20 16:00 05/02/20 08:27 Gabapentin 300 Mg Capsule PO 300 mg TID NAA Administration Guaifenesin/Dextromethorphan 5 ml 05/01/20 11:50 05/02/20 08:44 Guaifenesin Dm 100/10/5 Ml 5 Ml Syrup PO 5 ml Q4H PRN Administration cough Remdesivir 100 mg/ Sodium 230 mls @ 115 mls/hr 05/02/20 13:00 Chloride IV 05/05/20 14:59 Q24H [facility] Insulin Human Lispro 0 unit 04/30/20 23:56 05/02/20 08:28 Insulin Lispro 100 Unit/Ml 3 Ml Vial SUBCUT 2 unit QIDACHS [facility] Administration Protocol Loratadine 10 mg 05/01/20 16:00 05/02/20 08:27 Loratadine 10 Mg Tablet PO 10 mg DAILY [facility] Administration Non-Formulary Medication 20 mg 05/01/20 16:00 Nebivolol [Bystolic] PO DAILY [facility] Omeprazole 20 mg 05/02/20 06:30 05/02/20 05:36 Omeprazole 20 Mg Capsule. PO 20 mg DAILY@0630 [facility] Administration Ondansetron HCl 4 mg 04/30/20 23:56 Ondansetron Hcl 4 Mg/2 Ml Vial IVPUSH Q8H PRN Nausea and Vomiting Sodium Chloride 3 ml 05/01/20 00:00 05/02/20 08:27 0.9 % Sodium Chloride Flush 3 Ml Syringe IVFLUSH 3 ml QSHIFT [facility] Administration Sulfasalazine 500 mg 05/01/20 16:00 05/02/20 08:27 Sulfasalazine 500 Mg Tablet PO 500 mg TID [facility] Administration Labs CBC & Chem 7: 05/02/20 06:17 05/02/20 06:17 Labs: Laboratory Results - last 24 hr 05/01/20 05/01/20 05/02/20 16:08 21:00 06:17 WBC 5.7 RBC 4.95 Hgb 13.8 L Hct 43.6 MCV 88.1 MCH 27.9 MCHC 31.7 RDW 14.9 Plt Count 119 L MPV 11.3 Immature Gran % (Auto) 0.5 H Neut % (Auto) 74.7 H Lymph % (Auto) 16.7 L [place] % (Auto) 7.9 Eos % (Auto) 0.0 Baso % (Auto) 0.2 Lymph # (Auto) 1.0 L [place] # (Auto) 0.5 Eos # (Auto) 0.0 Baso # (Auto) 0.0 Abs Immat Gran (auto) 0.03 Absolute Neuts (auto) 4.3 Absolute Nucleated RBC 0.000 Nucleated RBC % (auto) 0.0 Smear Tech's Comments Not Reportable D-Dimer Sodium Potassium Chloride Carbon Dioxide Anion Gap BUN Creatinine Estim Creat Clear Calc Estimated GFR POC Glucose 216 H 268 H Random Glucose Calcium Ferritin Total Bilirubin AST ALT Alkaline Phosphatase Lactate Dehydrogenase C-Reactive Protein Total Protein Albumin Procalcitonin 05/02/20 05/02/20 05/02/20 06:17 06:17 06:17 WBC RBC Hgb Hct MCV MCH MCHC RDW Plt Count MPV Immature Gran % (Auto) Neut % (Auto) Lymph % (Auto) [place] % (Auto) Eos % (Auto) Baso % (Auto) Lymph # (Auto) [place] # (Auto) Eos # (Auto) Baso # (Auto) Abs Immat Gran (auto) Absolute Neuts (auto) Absolute Nucleated RBC Nucleated RBC % (auto) Smear Tech's Comments D-Dimer 301 Sodium 138 Potassium 4.4 Chloride 101 Carbon Dioxide 27 Anion Gap 14 BUN 23 H Creatinine 0.81 Estim Creat Clear Calc 109.6 Estimated GFR > 60 POC Glucose Random Glucose 206 H Calcium 7.9 L Ferritin 338 H Total Bilirubin 0.6 AST 30 ALT 24 Alkaline Phosphatase 68 Lactate Dehydrogenase 439 H C-Reactive Protein 13.61 H Total Protein 6.1 L Albumin 3.8 Procalcitonin 0.23 05/02/20 05/02/20 07:24 11:13 WBC RBC Hgb Hct MCV MCH MCHC RDW Plt Count MPV Immature Gran % (Auto) Neut % (Auto) Lymph % (Auto) [place] % (Auto) Eos % (Auto) Baso % (Auto) Lymph # (Auto) [place] # (Auto) Eos # (Auto) Baso # (Auto) Abs Immat Gran (auto) Absolute Neuts (auto) Absolute Nucleated RBC Nucleated RBC % (auto) Smear Tech's Comments D-Dimer Sodium Potassium Chloride Carbon Dioxide Anion Gap BUN Creatinine Estim Creat Clear Calc Estimated GFR POC Glucose 167 H 273 H Random Glucose Calcium Ferritin Total Bilirubin AST ALT Alkaline Phosphatase Lactate Dehydrogenase C-Reactive Protein Total Protein Albumin Procalcitonin Microbiology Microbiology Results: Microbiology 04/30/20 12:58 Blood - Venous Blood Culture - Preliminary No growth after 24 hours. 04/30/20 12:44 Blood - Venous Blood Culture - Preliminary No growth after 24 hours. Assessment and Plan (1) COVID-19: Status: Acute Assessment and Plan: hospital d#3 65yo M presenting on day #7 of symptoms of COVID-19 infection admitted for hypoxia # COVID-19 pneumonia, severe - dexamethasone d#3, remdesivir d#2/, trend inflammatory markers # acute hypoxic respiratory failure - supplemental O2, encouraged awake proning # viral sepsis - present on admission # thrombocytopenia - probably due to COVID-19, improving, monitor # DM2, A1c 7.7 - correction-dose lispro, hold OHGs # HTN - nebivolol # HLD - atorvastatin formulary equivalent of pt's rosuvastatin # RA - continue sulfasalazine # VTE ppx - LMWH
[2020-05-02] MEDS: Remdesivir 100 MG in 0.9 % Sodium Chloride 230 ML 115 MG IV (13:19)
--- NOTE | 2020-05-02 14:36 | PC.NURSE ---
Patient remains on 3L NC, satting well. Pt remains hypertensive[facility]. Pt received second dose of remdesevir. Will continue to [facility].
--- NOTE | 2020-05-02 15:05 | W.PM.IDCN ---
History of Present Illness Data of Consult Service Date: 05/02/20 Requesting physician: Shaun Laughlin Primary Care Provider: Unknown Physician HPI Reason for consult: COVID He presents to hospital with shortness of breath and weakness for 3 days He has had 7 days initial start of fatigue He was diagnosed with COVID Review of Systems Review of Systems: Yes all other systems are reviewed and are negative Neurologic: Reports system reviewed and no additional complaints, except as documented and Reports as per [facility] Past Medical History Medical History Diabetes Hypercholesteremia Hypertension Family History Family history: reviewed and not pertinent Social History Social History Household Members: Significant Other Housing: House Do you presently have visiting nurse or other home services: No Smoking Status: Never smoker Use of substances other than those prescribed or required for medical reasons: No Currently Displaying Signs/Symptoms of Drug Intoxication Withdrawal: No Have you been hit, kicked, punched, or otherwise hurt by someone within the past year? If so, by whom?: No Do you feel safe in your current relationship?: Yes Is there a partner from a previous relationship who is making you feel unsafe now?: No Are you made to feel afraid or neglected: No Spiritual Healthcare Practices: [employer] Healthcare Practices: [employer] Cultural Healthcare Practices: N/A Advance Directives: No Advance Directives Information Provided: Yes Do you have thoughts of harming others: None Do you have a plan to hurt others: No Plan Recently lost weight without trying: No service: Yes Current occupational status: retired [employer] Allergies Allergy/AdvReac Type Severity Reaction Status Date / Time No Known Allergies Allergy Verified 04/30/20 11:54 Home Medications Medication Instructions Recorded Confirmed Type aspirin 81 mg PO DAILY 04/30/20 04/30/20 History celecoxib 200 mg PO DAILY 04/30/20 04/30/20 History empagliflozin [Jardiance] 10 mg PO DAILY 04/30/20 04/30/20 History folic acid 1 mg PO DAILY 04/30/20 04/30/20 History gabapentin 300 mg PO TID 04/30/20 04/30/20 History loratadine 10 mg PO DAILY 04/30/20 04/30/20 History nebivolol [Bystolic] 20 mg PO DAILY 04/30/20 04/30/20 History omega-3 fatty acids-fish oil [Fish 1 cap PO BID 04/30/20 04/30/20 History Oil] pantoprazole 40 mg PO DAILY 04/30/20 04/30/20 History rosuvastatin [Crestor] 20 mg PO DAILY 04/30/20 04/30/20 History sitagliptin-metformin [Janumet XR] 1 tab PO BID 04/30/20 04/30/20 History sulfasalazine 500 mg PO TID 04/30/20 04/30/20 History Physical Exam Vital Signs: Vital Signs: Last Vital Signs Temp 99.4 F 05/02/20 11:47 Pulse 92 05/02/20 11:47 Resp 25 H 05/02/20 11:47 BP 148/77 H 05/02/20 11:47 Pulse Ox 96 05/02/20 11:47 Body Mass Index 34.0 Const: General: cooperative Orientation/consciousness: oriented to person, oriented to place and oriented to time HENMT: Head: Yes normal to inspection Mouth: Normal oral and palatal mucosa present Eyes: General: appearance normal, both eyes and all related structures Resp: Effort & Inspection: normal respiratory effort Cardio: Rate: regular rate Rhythm: regular rhythm GI: Inspection: Yes normal to inspection Palpation (GI): nontender Skin: General skin exam: no rashes or lesions noted Neuro: General: oriented to person, oriented to place and oriented to time Extrem: General: Yes normal to inspection Assessment and Plan (1) COVID-19: Problem details: He has recent symptoms within a week He is feeling better and on less oxygen now,2.5 liters He has no other complaints Status: Acute Would continue Remdesivir and steroids per protocol Supportive oxygen Results Labs CBC & Chem 7: 05/02/20 06:17 05/02/20 06:17 Labs: Short CBC 05/02/20 Range/Units 06:17 WBC 5.7 (4.8-10.8) X10*3/uL Hgb 13.8 L (14.0-18.0) g/dl Hct 43.6 (42-52) % Plt Count 119 L (160-400) X10*3/uL BMP 05/02/20 06:17 Sodium 138 Potassium 4.4 Chloride 101 Carbon Dioxide 27 BUN 23 H Creatinine 0.81 Calcium 7.9 L Liver Function 05/02/20 Range/Units 06:17 Total Bilirubin 0.6 (0.0-1.0) mg/dL AST 30 (5-37) U/L ALT 24 (0-40) U/L Alkaline Phosphatase 68 (39-117) U/L Albumin 3.8 (3.5-5.0) g/dL Microbiology Microbiology Results: Microbiology 04/30/20 12:58 Blood - Venous Blood Culture - Preliminary No growth after 48 hours. 04/30/20 12:44 Blood - Venous Blood Culture - Preliminary No growth after 48 hours.
[2020-05-02 16:02] LABS: Glucose, Whole Blood 276 mg/dL (60-115)
[2020-05-02] MEDS: dexAMETHasone sod phosphate 4 MG/ML VIAL 6 MG IVPUSH (16:34)
[2020-05-02 19:55] LABS: Glucose, Whole Blood 281 mg/dL (60-115)
[2020-05-02] MEDS: Atorvastatin Calcium 80 MG TABLET PO (20:42)
[2020-05-03] VITALS (11 sets, daily range): BP systolic 141–163; BP diastolic 76–90; PULSE 72–90; RESP 14–22; TEMP 36.7–37.4; O2SAT 82–98
[2020-05-03] MEDS: Omeprazole 20 MG CAPSULE.DR PO (06:09)
[2020-05-03 07:35] LABS: Glucose, Whole Blood 236 mg/dL (60-115)
[2020-05-03 07:55] LABS: Basophils Percent Auto 0.2 % (0-2); MANUAL DIFF FLAG SCAN; Mean Platelet Volume 11.6 fL (9.4-12.4); PLT CLUMP 1; SCAN SMEAR FLAG 1
[2020-05-03 07:57] LABS: Hematocrit 41.8 % (42-52); Hemoglobin 13.4 g/dl (14.0-18.0); Imm Gran Abs Auto 0.04 X10*3/uL (0.00-0.03); Imm Gran Pct Auto 0.7 % (0.0-0.4); Mean Corpuscular HGB Conc 32.1 g/dl (31.0-36.0); Mean Corpuscular Hemoglobin 28.5 pg (27.0-33.0); Mean Corpuscular Volume 88.7 fL (80-98); Monocytes Absolute Auto 0.6 X10*3/uL (0.1-1.2); Monocytes Percent Auto 10.4 % (2-11); Neutrophils Absolute Auto 4.1 X10*3/uL (2.0-8.3); Neutrophils Percent Auto 71.7 % (45-73); Platelet Count 120 X10*3/uL (160-400); Red Blood Count 4.71 X10*6/uL (4.60-5.80); Red Cell Distribution Width 14.6 % (11.0-16.0); White Blood Count 5.7 X10*3/uL (4.8-10.8)
[2020-05-03] MEDS: Loratadine 10 MG TABLET PO (08:08)
[2020-05-03] MEDS: Folic Acid 1 MG TABLET PO (08:08)
[2020-05-03] MEDS: sulfaSALAzine 500 MG TABLET PO ×3 (08:08→21:16)
[2020-05-03] MEDS: 0.9 % Sodium Chloride Flush 3 ML SYRINGE IVFLUSH ×2 (08:08→16:57)
[2020-05-03] MEDS: Gabapentin 300 MG CAPSULE PO ×3 (08:08→21:16)
[2020-05-03] MEDS: Aspirin Enteric Coated 81 MG TABLET.DR PO (08:08)
[2020-05-03] MEDS: Insulin Lispro 100 UNIT/ML 3 ML VIAL SUBCUT ×4 (08:08→21:16)
[2020-05-03 08:14] LABS: Alanine Aminotransferase 28 U/L (0-40); Albumin Level 3.6 g/dL (3.5-5.0); Alkaline Phosphatase 65 U/L (39-117); Anion Gap 16 (12-20); Aspartate Amino Transferase 32 U/L (5-37); Bilirubin Total 0.6 mg/dL (0.0-1.0); Blood Urea Nitrogen 23 mg/dL (9-16); Calcium 7.7 mg/dL (8.4-10.2); Carbon Dioxide 27 mmol/L (22-29); Chloride 100 mmol/L (96-108); Creatinine Clr Calc Pharmacy 105.7; Estimated Glomerular Filt Rate > 60; Glucose Random 254 mg/dL (60-115); Potassium 3.7 mmol/l (3.3-5.1); Sodium 139 mmol/L (135-145); Total Protein 5.7 g/dL (6.5-8.0)
[2020-05-03 11:25] LABS: Glucose, Whole Blood 295 mg/dL (60-115)
[2020-05-03] MEDS: Remdesivir 100 MG in 0.9 % Sodium Chloride 230 ML 115 MG IV (12:35)
--- NOTE | 2020-05-03 15:13 | HO.PM.IMPN ---
Subjective Subjective Date of Service: 05/03/20 Interval History: more hypoxic O2 changed to NRB and now on HFNC 50% fiO2 @ 50 Lpm no chest pain no nausea/vomiting fever curve improving Physical Exam Vital Signs: Vital Signs: Last Vital Signs Temp 98.6 F 05/03/20 11:53 Pulse 79 05/03/20 11:53 Resp 18 05/03/20 11:53 BP 148/88 H 05/03/20 11:53 Pulse Ox 96 05/03/20 11:53 Body Mass Index 34.0 Gen: short of breath HEENT: sclera anicteric, moist mucus membranes Neck: supple Lungs: mild respiratory distress, auscultation deferred due to COVID-19 Heart: normal peripheral pulses Abd: soft, non-tender, non-distended Ext: no cyanosis, clubbing, or edema Skin: warm/well-perfused Neuro: alert and oriented x3, no focal findings Psych: appropriate affect Objective Data Current Medications Generic Name Dose Route Start Last Admin Trade Name Freq PRN Reason Stop Dose Admin Acetaminophen 650 mg 04/30/20 23:56 05/02/20 08:27 Acetaminophen 325 Mg Tablet PO 650 mg Q6H PRN Administration Pain, Mild (Pain Scale 1-3) Aspirin 81 mg 05/01/20 16:00 05/03/20 08:08 Aspirin Enteric Coated 81 Mg Tablet. PO 81 mg DAILY NAA Administration Atorvastatin Calcium 80 mg 05/01/20 21:00 05/02/20 20:42 Atorvastatin Calcium 80 Mg Tablet PO 80 mg BEDTIME NAA Administration Dexamethasone Sodium Phosphate 6 mg 05/01/20 16:00 05/02/20 16:34 Dexamethasone Sod Phosphate 4 Mg/Ml Vial IVPUSH 6 mg Q24H NAA Administration Folic Acid 1 mg 05/01/20 16:00 05/03/20 08:08 Folic Acid 1 Mg Tablet PO 1 mg DAILY NAA Administration Gabapentin 300 mg 05/01/20 16:00 05/03/20 08:08 Gabapentin 300 Mg Capsule PO 300 mg TID NAA Administration Guaifenesin/Dextromethorphan 5 ml 05/01/20 11:50 05/02/20 22:38 Guaifenesin Dm 100/10/5 Ml 5 Ml Syrup PO 5 ml Q4H PRN Administration cough Remdesivir 100 mg/ Sodium 230 mls @ 115 mls/hr 05/02/20 13:00 05/03/20 15:12 Chloride IV 05/05/20 14:59 Infused Q24H NAA Infusion Insulin Human Lispro 0 unit 04/30/20 23:56 05/03/20 12:35 Insulin Lispro 100 Unit/Ml 3 Ml Vial SUBCUT 6 unit QIDACHS [facility] Administration Protocol Loratadine 10 mg 05/01/20 16:00 05/03/20 08:08 Loratadine 10 Mg Tablet PO 10 mg DAILY NAA Administration Non-Formulary Medication 20 mg 05/01/20 16:00 05/03/20 08:09 Nebivolol [Bystolic] PO 20 mg DAILY [facility] Administration Omeprazole 20 mg 05/02/20 06:30 05/03/20 06:09 Omeprazole 20 Mg Capsule. PO 20 mg DAILY@0630 [facility] Administration Ondansetron HCl 4 mg 04/30/20 23:56 Ondansetron Hcl 4 Mg/2 Ml Vial IVPUSH Q8H PRN Nausea and Vomiting Sodium Chloride 3 ml 05/01/20 00:00 05/03/20 08:08 0.9 % Sodium Chloride Flush 3 Ml Syringe IVFLUSH 3 ml QSHIFT [facility] Administration Sulfasalazine 500 mg 05/01/20 16:00 05/03/20 08:08 Sulfasalazine 500 Mg Tablet PO 500 mg TID NAA Administration Labs CBC & Chem 7: 05/03/20 07:33 05/03/20 07:33 Labs: Laboratory Results - last 24 hr 05/02/20 05/02/20 05/03/20 15:58 19:50 07:19 WBC RBC Hgb Hct MCV MCH MCHC RDW Plt Count MPV Immature Gran % (Auto) Neut % (Auto) Lymph % (Auto) [place] % (Auto) Eos % (Auto) Baso % (Auto) Lymph # (Auto) [place] # (Auto) Eos # (Auto) Baso # (Auto) Abs Immat Gran (auto) Absolute Neuts (auto) Absolute Nucleated RBC Nucleated RBC % (auto) Smear Tech's Comments Sodium Potassium Chloride Carbon Dioxide Anion Gap BUN Creatinine Estim Creat Clear Calc Estimated GFR POC Glucose 276 H 281 H 236 H Random Glucose Calcium Total Bilirubin AST ALT Alkaline Phosphatase Total Protein Albumin 05/03/20 05/03/20 05/03/20 07:33 07:33 11:17 WBC 5.7 RBC 4.71 Hgb 13.4 L Hct 41.8 L MCV 88.7 MCH 28.5 MCHC 32.1 RDW 14.6 Plt Count 120 L MPV 11.6 Immature Gran % (Auto) 0.7 H Neut % (Auto) 71.7 Lymph % (Auto) 17.0 L [place] % (Auto) 10.4 Eos % (Auto) 0.0 Baso % (Auto) 0.2 Lymph # (Auto) 1.0 L [place] # (Auto) 0.6 Eos # (Auto) 0.0 Baso # (Auto) 0.0 Abs Immat Gran (auto) 0.04 H Absolute Neuts (auto) 4.1 Absolute Nucleated RBC 0.000 Nucleated RBC % (auto) 0.0 Smear Tech's Comments Not Reportable Sodium 139 Potassium 3.7 Chloride 100 Carbon Dioxide 27 Anion Gap 16 BUN 23 H Creatinine 0.84 Estim Creat Clear Calc 105.7 Estimated GFR > 60 POC Glucose 295 H Random Glucose 254 H Calcium 7.7 L Total Bilirubin 0.6 AST 32 ALT 28 Alkaline Phosphatase 65 Total Protein 5.7 L Albumin 3.6 Microbiology Microbiology Results: Microbiology 04/30/20 12:58 Blood - Venous Blood Culture - Preliminary No growth after 48 hours. 04/30/20 12:44 Blood - Venous Blood Culture - Preliminary No growth after 48 hours. Assessment and Plan (1) COVID-19: Status: Acute Assessment and Plan: hospital d#4 65yo M presenting after 7d of COVID-19 infection admitted for hypoxia # COVID-19 pneumonia, severe - dexamethasone d#08/02, remdesivir d#06/27, trend inflammatory markers # acute hypoxic respiratory failure - supplemental O2 via HFNC, encouraged awake proning. discussed advanced care planning with pt and his via phone and he is FULL CODE # viral sepsis - present on admission, no evidence of bacterial infection # thrombocytopenia - probably due to COVID-19, improving, monitor # DM2, A1c 7.7 - correction-dose lispro, hold OHGs # HTN - nebivolol # HLD - atorvastatin formulary equivalent of pt's rosuvastatin # RA - continue sulfasalazine # VTE ppx - LMWH
[2020-05-03] MEDS: dexAMETHasone sod phosphate 4 MG/ML VIAL 6 MG IVPUSH (16:57)
[2020-05-03 18:03] LABS: Glucose, Whole Blood 197 mg/dL (60-115)
[2020-05-03 20:02] LABS: Glucose, Whole Blood 331 mg/dL (60-115)
[2020-05-03 21:13] LABS: Glucose, Whole Blood 303 mg/dL (60-115)
[2020-05-03] MEDS: Atorvastatin Calcium 80 MG TABLET PO (21:16)
[2020-05-03] MEDS: Acetaminophen 325 MG TABLET 650 MG PO (21:17)
[2020-05-04] VITALS (9 sets, daily range): BP systolic 145–152; BP diastolic 78–86; PULSE 69–90; RESP 17–22; TEMP 37.1–37.3; O2SAT 90–97
--- NOTE | 2020-05-04 | XR_ITS ---
EXAMINATION: XR CHEST CLINICAL INFORMATION: COVID, hypoxia COMPARISON: Chest radiograph from 04/30/2020 TECHNIQUE: Frontal view of the chest was obtained. FINDINGS: Bilateral low lung volumes. Patchy airspace radiopacities throughout the bilateral lung jacob, right greater than left. Trachea is midline. Cardiac mediastinal silhouette is stable. Aorta is mildly tortuous. There is no pleural effusion. Osseous structures are intact. Soft tissues are unremarkable. XR/XR chest 1V IMPRESSION: 1. Bilateral low lung volumes. 2. Patchy airspace radiopacities throughout the bilateral lung jacob, right greater than left.
[2020-05-04] MEDS: 0.9 % Sodium Chloride Flush 3 ML SYRINGE IVFLUSH ×4 (00:02→21:11)
[2020-05-04] MEDS: Omeprazole 20 MG CAPSULE.DR PO (05:35)
[2020-05-04 07:14] LABS: Basophils Percent Auto 0.2 % (0-2); MANUAL DIFF FLAG SCAN; Mean Corpuscular HGB Conc 32.1 g/dl (31.0-36.0); Mean Corpuscular Volume 88.5 fL (80-98); PLT CLUMP 1; SCAN SMEAR FLAG 1
[2020-05-04 07:16] LABS: Hematocrit 41.4 % (42-52); Hemoglobin 13.3 g/dl (14.0-18.0); Imm Gran Abs Auto 0.04 X10*3/uL (0.00-0.03); Imm Gran Pct Auto 0.7 % (0.0-0.4); Lymphocytes Absolute Auto 1.1 X10*3/uL (1.2-4.9); Lymphocytes Percent Auto 20.4 % (20-40); Mean Corpuscular Hemoglobin 28.4 pg (27.0-33.0); Mean Platelet Volume 11.5 fL (9.4-12.4); Monocytes Absolute Auto 0.4 X10*3/uL (0.1-1.2); Neutrophils Percent Auto 71.7 % (45-73); Platelet Count 136 X10*3/uL (160-400); Red Blood Count 4.68 X10*6/uL (4.60-5.80); Red Cell Distribution Width 14.6 % (11.0-16.0); White Blood Count 5.5 X10*3/uL (4.8-10.8)
[2020-05-04 07:24] LABS: D Dimer 839 NG/ML
[2020-05-04 07:57] LABS: Alanine Aminotransferase 34 U/L (0-40); Albumin Level 3.4 g/dL (3.5-5.0); Alkaline Phosphatase 72 U/L (39-117); Anion Gap 13 (12-20); Aspartate Amino Transferase 36 U/L (5-37); Bilirubin Total 0.5 mg/dL (0.0-1.0); Blood Urea Nitrogen 20 mg/dL (9-16); C Reactive Protein 9.19 mg/dL (< or = 0.50); Calcium 8.2 mg/dL (8.4-10.2); Carbon Dioxide 31 mmol/L (22-29); Chloride 101 mmol/L (96-108); Estimated Glomerular Filt Rate > 60; Glucose Random 226 mg/dL (60-115); Lactate Dehydrogenase 485 U/L (118-273); Potassium 4.1 mmol/l (3.3-5.1); Sodium 141 mmol/L (135-145); Total Protein 5.6 g/dL (6.5-8.0)
[2020-05-04 07:58] LABS: SLIDE REVIEW VERIFIED
[2020-05-04 07:59] LABS: Ferritin 319 ng/mL (20-250)
[2020-05-04 08:03] LABS: Procalcitonin 0.09 ng/mL
[2020-05-04 08:31] LABS: Glucose, Whole Blood 178 mg/dL (60-115)
[2020-05-04] MEDS: Gabapentin 300 MG CAPSULE PO ×3 (08:43→21:11)
[2020-05-04] MEDS: Aspirin Enteric Coated 81 MG TABLET.DR PO (08:43)
[2020-05-04] MEDS: Folic Acid 1 MG TABLET PO (08:43)
[2020-05-04] MEDS: sulfaSALAzine 500 MG TABLET PO ×3 (08:43→21:11)
[2020-05-04] MEDS: Loratadine 10 MG TABLET PO (08:44)
[2020-05-04] MEDS: Insulin Lispro 100 UNIT/ML 3 ML VIAL SUBCUT ×4 (08:44→21:13)
[2020-05-04 12:05] LABS: Glucose, Whole Blood 234 mg/dL (60-115)
[2020-05-04] MEDS: Remdesivir 100 MG in 0.9 % Sodium Chloride 230 ML 115 MG IV (14:34)
--- NOTE | 2020-05-04 14:42 | P.PNIM_ITS ---
Subjective Subjective Date of Service: 05/04/20 Interval History: FiO2 increased to 90% No fever No chest pain Physical Exam Vital Signs: Vital Signs: Last Vital Signs Temp 98.7 F 05/04/20 12:00 Pulse 90 05/04/20 12:00 Resp 20 05/04/20 12:00 BP 148/78 H 05/04/20 12:00 Pulse Ox 96 05/04/20 12:00 Body Mass Index 34.0 Gen: in no acute distress HEENT: sclera anicteric, moist mucus membranes Neck: supple Lungs: no respiratory distress, auscultation deferred due to COVID-19 Heart: normal peripheral pulses Abd: soft, non-tender, non-distended Ext: no cyanosis, clubbing, or edema Skin: warm/well-perfused Neuro: alert and oriented x3, no focal findings Psych: appropriate affect Objective Data Current Medications Generic Name Dose Route Start Last Admin Trade Name Freq PRN Reason Stop Dose Admin Acetaminophen 650 mg 04/30/20 23:56 05/03/20 21:17 Acetaminophen 325 Mg Tablet PO 650 mg Q6H PRN Administration Pain, Mild (Pain Scale 1-3) Aspirin 81 mg 05/01/20 16:00 05/04/20 08:43 Aspirin Enteric Coated 81 Mg Tablet.Dr PO 81 mg DAILY NAA Administration Atorvastatin Calcium 80 mg 05/01/20 21:00 05/03/20 21:16 Atorvastatin Calcium 80 Mg Tablet PO 80 mg BEDTIME NAA Administration Dexamethasone Sodium Phosphate 6 mg 05/01/20 16:00 05/03/20 16:57 Dexamethasone Sod Phosphate 4 Mg/Ml Vial IVPUSH 6 mg Q24H NAA Administration Folic Acid 1 mg 05/01/20 16:00 05/04/20 08:43 Folic Acid 1 Mg Tablet PO 1 mg DAILY NAA Administration Gabapentin 300 mg 05/01/20 16:00 05/04/20 08:43 Gabapentin 300 Mg Capsule PO 300 mg TID NAA Administration Guaifenesin/Dextromethorphan 5 ml 05/01/20 11:50 05/02/20 22:38 Guaifenesin Dm 100/10/5 Ml 5 Ml Syrup PO 5 ml Q4H PRN Administration cough Remdesivir 100 mg/ Sodium 230 mls @ 115 mls/hr 05/02/20 13:00 05/04/20 14:34 Chloride IV 05/05/20 14:59 115 mls/hr Q24H NAA Administration Insulin Human Lispro 0 unit 04/30/20 23:56 05/04/20 12:02 Insulin Lispro 100 Unit/Ml 3 Ml Vial SUBCUT 4 unit QIDACHS [facility] Administration Protocol Loratadine 10 mg 05/01/20 16:00 05/04/20 08:44 Loratadine 10 Mg Tablet PO 10 mg DAILY NAA Administration Non-Formulary Medication 20 mg 05/01/20 16:00 05/04/20 08:43 Nebivolol [Bystolic] PO 20 mg DAILY NAA Administration Omeprazole 20 mg 05/02/20 06:30 05/04/20 05:35 Omeprazole 20 Mg Capsule. PO 20 mg DAILY@0630 [facility] Administration Ondansetron HCl 4 mg 04/30/20 23:56 Ondansetron Hcl 4 Mg/2 Ml Vial IVPUSH Q8H PRN Nausea and Vomiting Sodium Chloride 3 ml 05/01/20 00:00 05/04/20 08:44 0.9 % Sodium Chloride Flush 3 Ml Syringe IVFLUSH 3 ml QSHIFT [facility] Administration Sulfasalazine 500 mg 05/01/20 16:00 05/04/20 08:43 Sulfasalazine 500 Mg Tablet PO 500 mg TID [facility] Administration Labs CBC & Chem 7: 05/04/20 06:36 05/04/20 06:36 Labs: Laboratory Results - last 24 hr 05/03/20 05/03/20 05/03/20 17:22 19:53 21:09 WBC RBC Hgb Hct MCV MCH MCHC RDW Plt Count MPV Immature Gran % (Auto) Neut % (Auto) Lymph % (Auto) Cocke % (Auto) Eos % (Auto) Baso % (Auto) Lymph # (Auto) Cocke # (Auto) Eos # (Auto) Baso # (Auto) Abs Immat Gran (auto) Absolute Neuts (auto) Absolute Nucleated RBC Nucleated RBC % (auto) Smear Tech's Comments D-Dimer Sodium Potassium Chloride Carbon Dioxide Anion Gap BUN Creatinine Estim Creat Clear Calc Estimated GFR POC Glucose 197 H 331 H 303 H Random Glucose Calcium Ferritin Total Bilirubin AST ALT Alkaline Phosphatase Lactate Dehydrogenase C-Reactive Protein Total Protein Albumin Procalcitonin 05/04/20 05/04/20 05/04/20 06:36 06:36 06:36 WBC 5.5 RBC 4.68 Hgb 13.3 L Hct 41.4 L MCV 88.5 MCH 28.4 MCHC 32.1 RDW 14.6 Plt Count 136 L MPV 11.5 Immature Gran % (Auto) 0.7 H Neut % (Auto) 71.7 Lymph % (Auto) 20.4 Cocke % (Auto) 7.0 Eos % (Auto) 0.0 Baso % (Auto) 0.2 Lymph # (Auto) 1.1 L Cocke # (Auto) 0.4 Eos # (Auto) 0.0 Baso # (Auto) 0.0 Abs Immat Gran (auto) 0.04 H Absolute Neuts (auto) 4.0 Absolute Nucleated RBC 0.000 Nucleated RBC % (auto) 0.0 Smear Tech's Comments VERIFIED D-Dimer 839 Sodium 141 Potassium 4.1 Chloride 101 Carbon Dioxide 31 H Anion Gap 13 BUN 20 H Creatinine 0.74 Estim Creat Clear Calc 120.0 Estimated GFR > 60 POC Glucose Random Glucose 226 H Calcium 8.2 L D Ferritin 319 H Total Bilirubin 0.5 AST 36 ALT 34 Alkaline Phosphatase 72 Lactate Dehydrogenase 485 H C-Reactive Protein 9.19 H Total Protein 5.6 L Albumin 3.4 L Procalcitonin 05/04/20 05/04/20 05/04/20 06:36 08:23 11:53 WBC RBC Hgb Hct MCV MCH MCHC RDW Plt Count MPV Immature Gran % (Auto) Neut % (Auto) Lymph % (Auto) Cocke % (Auto) Eos % (Auto) Baso % (Auto) Lymph # (Auto) Cocke # (Auto) Eos # (Auto) Baso # (Auto) Abs Immat Gran (auto) Absolute Neuts (auto) Absolute Nucleated RBC Nucleated RBC % (auto) Smear Tech's Comments D-Dimer Sodium Potassium Chloride Carbon Dioxide Anion Gap BUN Creatinine Estim Creat Clear Calc Estimated GFR POC Glucose 178 H 234 H Random Glucose Calcium Ferritin Total Bilirubin AST ALT Alkaline Phosphatase Lactate Dehydrogenase C-Reactive Protein Total Protein Albumin Procalcitonin 0.09 Microbiology Microbiology Results: Microbiology 04/30/20 12:58 Blood - Venous Blood Culture - Preliminary No growth after 48 hours. 04/30/20 12:44 Blood - Venous Blood Culture - Preliminary No growth after 48 hours. Assessment and Plan (1) COVID-19: Status: Acute Assessment and Plan: hospital d#5 65yo M presenting after on d#7 of COVID-19 infection admitted for hypoxia # COVID-19 pneumonia, severe - dexamethasone d#09/01, remdesivir d#07/28, trend inflammatory markers # acute hypoxic respiratory failure - supplemental O2 via HFNC, encouraged awake proning. # viral sepsis - present on admission, no evidence of bacterial infection # thrombocytopenia - probably due to COVID-19, improved # DM2, A1c 7.7 - correction-dose lispro, hold OHGs # HTN - nebivolol # HLD - atorvastatin formulary equivalent of pt's rosuvastatin # RA - continue sulfasalazine # VTE ppx - LMWH # code - FULL I updated the pt's Annia via telephone.
[2020-05-04 16:43] LABS: Glucose, Whole Blood 257 mg/dL (60-115)
[2020-05-04] MEDS: dexAMETHasone sod phosphate 4 MG/ML VIAL 6 MG IVPUSH (17:32)
--- NOTE | 2020-05-04 18:33 | PC.NURSE ---
Patient remains on highflow at 50L/70%. Vitals stable. Continues on remdesevir and decadron. Will continue to monitor.
[2020-05-04] MEDS: Atorvastatin Calcium 80 MG TABLET PO (21:11)
[2020-05-04] MEDS: guaiFENesin DM 100/10/5 ML 5 ML SYRUP PO (21:11)
[2020-05-04 21:14] LABS: Glucose, Whole Blood 256 mg/dL (60-115)
[2020-05-04] MEDS: Acetaminophen 325 MG TABLET 650 MG PO (23:46)
[2020-05-05] VITALS (12 sets, daily range): BP systolic 119–153; BP diastolic 60–88; PULSE 71–988; RESP 14–21; TEMP 36.3–37.2; O2SAT 89–98
[2020-05-05] MEDS: Omeprazole 20 MG CAPSULE.DR PO (06:32)
[2020-05-05 07:40] LABS: Glucose, Whole Blood 270 mg/dL (60-115)
[2020-05-05] MEDS: Insulin Lispro 100 UNIT/ML 3 ML VIAL SUBCUT ×4 (08:04→21:24)
[2020-05-05] MEDS: Loratadine 10 MG TABLET PO (08:05)
[2020-05-05] MEDS: Folic Acid 1 MG TABLET PO (08:05)
[2020-05-05] MEDS: Aspirin Enteric Coated 81 MG TABLET.DR PO (08:05)
[2020-05-05] MEDS: sulfaSALAzine 500 MG TABLET PO ×3 (08:05→19:45)
[2020-05-05] MEDS: Gabapentin 300 MG CAPSULE PO ×3 (08:05→19:45)
[2020-05-05] MEDS: 0.9 % Sodium Chloride Flush 3 ML SYRINGE IVFLUSH ×2 (08:06→14:11)
--- NOTE | 2020-05-05 08:14 | MHC.CM.PN ---
at this time dc plan is for patient to return home no svcs when medically stable. cm to cont. to follow.
[2020-05-05] MEDS: Enoxaparin Sodium 40 MG/0.4 ML SYRINGE SUBCUT (09:09)
--- NOTE | 2020-05-05 10:18 | P.PNIM_ITS ---
Subjective Subjective Date of Service: 05/05/20 Interval History: seen and examined this AM slight improvement and gets FREIRE; +cough ROS General - no fevers or chills Cardiovascular - no chest pain Respiratory - +SOB and cough Abdominal- no abdominal pain, nausea, vomiting, diarrhea Physical Exam Vital Signs: Vital Signs: Last Vital Signs Temp 97.8 F 05/05/20 07:31 Pulse 80 05/05/20 07:31 Resp 18 05/05/20 08:15 BP 142/80 H 05/05/20 07:31 Pulse Ox 94 05/05/20 07:31 Body Mass Index 34.0 Const: Other: General - no acute distress, appears comfortable Cardiovascular - regular rate and rhythm, S1-S2 Lungs - comfortable at rest, hypoxia / tachypnea with minimal movement; on HFNC Fio2 70%, 50L Abdomen - soft, nontender, no rebound or guarding Extremities - no edema bilaterally Neuro - awake and alert, no focal deficits Objective Data Current Medications Generic Name Dose Route Start Last Admin Trade Name Freq PRN Reason Stop Dose Admin Acetaminophen 650 mg 04/30/20 23:56 05/04/20 23:46 Acetaminophen 325 Mg Tablet PO 650 mg Q6H PRN Administration Pain, Mild (Pain Scale 1-3) Aspirin 81 mg 05/01/20 16:00 05/05/20 08:05 Aspirin Enteric Coated 81 Mg Tablet. PO 81 mg DAILY NAA Administration Atorvastatin Calcium 80 mg 05/01/20 21:00 05/04/20 21:11 Atorvastatin Calcium 80 Mg Tablet PO 80 mg BEDTIME NAA Administration Dexamethasone Sodium Phosphate 6 mg 05/01/20 16:00 05/04/20 17:32 Dexamethasone Sod Phosphate 4 Mg/Ml Vial IVPUSH 6 mg Q24H NAA Administration Enoxaparin Sodium 40 mg 05/05/20 08:45 05/05/20 09:09 Enoxaparin Sodium 40 Mg/0.4 Ml Syringe SUBCUT 40 mg Q24H NAA Administration Folic Acid 1 mg 05/01/20 16:00 05/05/20 08:05 Folic Acid 1 Mg Tablet PO 1 mg DAILY NAA Administration Gabapentin 300 mg 05/01/20 16:00 05/05/20 08:05 Gabapentin 300 Mg Capsule PO 300 mg TID NAA Administration Guaifenesin/Dextromethorphan 5 ml 05/01/20 11:50 05/04/20 21:11 Guaifenesin Dm 100/10/5 Ml 5 Ml Syrup PO 5 ml Q4H PRN Administration cough Remdesivir 100 mg/ Sodium 230 mls @ 115 mls/hr 05/02/20 13:00 05/04/20 17:50 Chloride IV 05/05/20 14:59 Infused Q24H NAA Infusion Insulin Human Lispro 0 unit 04/30/20 23:56 05/05/20 08:04 Insulin Lispro 100 Unit/Ml 3 Ml Vial SUBCUT 6 unit QIDACHS [facility] Administration Protocol Loratadine 10 mg 05/01/20 16:00 05/05/20 08:05 Loratadine 10 Mg Tablet PO 10 mg DAILY NAA Administration Non-Formulary Medication 20 mg 05/01/20 16:00 05/05/20 08:05 Nebivolol [Bystolic] PO 20 mg DAILY NAA Administration Omeprazole 20 mg 05/02/20 06:30 05/05/20 06:32 Omeprazole 20 Mg Capsule. PO 20 mg DAILY@0630 [facility] Administration Ondansetron HCl 4 mg 04/30/20 23:56 Ondansetron Hcl 4 Mg/2 Ml Vial IVPUSH Q8H PRN Nausea and Vomiting Sodium Chloride 3 ml 05/01/20 00:00 05/05/20 08:06 0.9 % Sodium Chloride Flush 3 Ml Syringe IVFLUSH 3 ml QSHIFT [facility] Administration Sulfasalazine 500 mg 05/01/20 16:00 05/05/20 08:05 Sulfasalazine 500 Mg Tablet PO 500 mg TID NAA Administration Labs CBC & Chem 7: 05/04/20 06:36 05/04/20 06:36 Microbiology Microbiology Results: Microbiology 04/30/20 12:58 Blood - Venous Blood Culture - Preliminary No growth after 48 hours. 04/30/20 12:44 Blood - Venous Blood Culture - Preliminary No growth after 48 hours. Assessment and Plan (1) COVID-19: Status: Acute Assessment and Plan: 65 yo M admitted for COVID 19 leading to acute hypoxic resp failure 1. COVID-19 pneumonia, severe -- leading to acute hypoxic resp. failure On HFNC -- FiO2 70%/50L -- improved from yesterday Dexamethasone d#10/02; remdesivir d#5/ - today updated 2. viral sepsis present on admission, no evidence of bacterial infection 3.thrombocytopenia probably due to COVID-19, improved 4. DM2, A1c 7.7 correction-dose lispro, hold OHGs 5. HTN nebivolol 6. HLD atorvastatin formulary equivalent of pt's rosuvastatin 7. RA continue sulfasalazine Full Code DVT pptx, Lovenox
[2020-05-05 11:29] LABS: Glucose, Whole Blood 307 mg/dL (60-115)
[2020-05-05] MEDS: Remdesivir 100 MG in 0.9 % Sodium Chloride 230 ML 115 MG IV (14:05)
[2020-05-05] MEDS: dexAMETHasone sod phosphate 4 MG/ML VIAL 6 MG IVPUSH (14:06)
[2020-05-05] MEDS: guaiFENesin DM 100/10/5 ML 5 ML SYRUP PO (15:00)
[2020-05-05 16:56] LABS: Glucose, Whole Blood 187 mg/dL (60-115)
[2020-05-05] MEDS: Atorvastatin Calcium 80 MG TABLET PO (19:45)
[2020-05-05 21:12] LABS: Glucose, Whole Blood 301 mg/dL (60-115)
[2020-05-06] VITALS (13 sets, daily range): BP systolic 124–146; BP diastolic 75–89; PULSE 64–122; RESP 16–30; TEMP 36.6–37.5; O2SAT 39–95
[2020-05-06] MEDS: 0.9 % Sodium Chloride Flush 3 ML SYRINGE IVFLUSH ×4 (00:46→21:25)
[2020-05-06] MEDS: Omeprazole 20 MG CAPSULE.DR PO (05:59)
[2020-05-06] MEDS: guaiFENesin DM 100/10/5 ML 5 ML SYRUP PO (06:00)
--- NOTE | 2020-05-06 06:27 | PC.NURSE ---
CARE ASSUMED 23;15...awake..alert..oriented x3...calm/co-operative...maintained hi-kamilah cannula fio2 70%/50 l/m...sao2 89-92%...prn cough med given per request this am...converses at length w/o distress,,,stands to void w/o difficulty...requests omeprazole therapy to be changed to daily protonix 40 mg po as at home...med previously brought in by ...to pass on in report---med in medication room
[2020-05-06 06:45] LABS: Hematocrit 43.8 % (42-52); Hemoglobin 14.1 g/dl (14.0-18.0); Mean Corpuscular HGB Conc 32.2 g/dl (31.0-36.0); Mean Corpuscular Hemoglobin 28.4 pg (27.0-33.0); Mean Corpuscular Volume 88.3 fL (80-98); Platelet Count 200 X10*3/uL (160-400); Red Blood Count 4.96 X10*6/uL (4.60-5.80); Red Cell Distribution Width 14.4 % (11.0-16.0); White Blood Count 7.5 X10*3/uL (4.8-10.8)
[2020-05-06 07:06] LABS: D Dimer 3210 NG/ML
[2020-05-06 07:24] LABS: Alanine Aminotransferase 38 U/L (0-40); Albumin Level 3.4 g/dL (3.5-5.0); Alkaline Phosphatase 82 U/L (39-117); Anion Gap 14 (12-20); Aspartate Amino Transferase 36 U/L (5-37); Bilirubin Direct 0.3 mg/dL (0.0-0.5); Bilirubin Total 0.6 mg/dL (0.0-1.0); Blood Urea Nitrogen 15 mg/dL (9-16); Calcium 8.3 mg/dL (8.4-10.2); Carbon Dioxide 33 mmol/L (22-29); Chloride 98 mmol/L (96-108); Creatinine Clr Calc Pharmacy 121.6; Estimated Glomerular Filt Rate > 60; Glucose Random 179 mg/dL (60-115); Potassium 3.7 mmol/l (3.3-5.1); Sodium 141 mmol/L (135-145); Total Protein 5.8 g/dL (6.5-8.0)
[2020-05-06 07:33] LABS: Glucose, Whole Blood 162 mg/dL (60-115)
[2020-05-06] MEDS: Enoxaparin Sodium 40 MG/0.4 ML SYRINGE SUBCUT (07:38)
[2020-05-06] MEDS: Gabapentin 300 MG CAPSULE PO ×3 (07:38→21:24)
[2020-05-06] MEDS: Insulin Lispro 100 UNIT/ML 3 ML VIAL SUBCUT ×4 (07:38→21:25)
[2020-05-06] MEDS: Loratadine 10 MG TABLET PO (07:39)
[2020-05-06] MEDS: sulfaSALAzine 500 MG TABLET PO ×3 (07:39→21:24)
[2020-05-06] MEDS: Aspirin Enteric Coated 81 MG TABLET.DR PO (07:39)
[2020-05-06] MEDS: Folic Acid 1 MG TABLET PO (07:39)
[2020-05-06 09:01] LABS: C Reactive Protein 9.29 mg/dL (< or = 0.50)
[2020-05-06 09:24] LABS: Procalcitonin 0.08 ng/mL
--- NOTE | 2020-05-06 11:08 | HO.PM.IMPN ---
Subjective Subjective Date of Service: 05/06/20 Interval History: seen and examined this AM slowly better, but still sob with min exertion ROS General - no fevers or chills Cardiovascular - no chest pain Respiratory - +SOB and cough Abdominal- no abdominal pain, nausea, vomiting, diarrhea Physical Exam Vital Signs: Vital Signs: Last Vital Signs Temp 98.5 F 05/06/20 07:59 Pulse 76 05/06/20 07:59 Resp 16 05/06/20 07:59 BP 146/89 H 05/06/20 07:59 Pulse Ox 89 L 05/06/20 07:59 Body Mass Index 34.0 Const: Other: General - no acute distress, appears comfortable Cardiovascular - regular rate and rhythm, S1-S2 Lungs - comfortable at rest, hypoxia / tachypnea with minimal movement; on HFNC Fio2 70%, 50L Abdomen - soft, nontender, no rebound or guarding Extremities - no edema bilaterally Neuro - awake and alert, no focal deficits Objective Data Current Medications Generic Name Dose Route Start Last Admin Trade Name Freq PRN Reason Stop Dose Admin Acetaminophen 650 mg 04/30/20 23:56 05/04/20 23:46 Acetaminophen 325 Mg Tablet PO 650 mg Q6H PRN Administration Pain, Mild (Pain Scale 1-3) Aspirin 81 mg 05/01/20 16:00 05/06/20 07:39 Aspirin Enteric Coated 81 Mg Tablet. PO 81 mg DAILY NAA Administration Atorvastatin Calcium 80 mg 05/01/20 21:00 05/05/20 19:45 Atorvastatin Calcium 80 Mg Tablet PO 80 mg BEDTIME NAA Administration Dexamethasone Sodium Phosphate 6 mg 05/01/20 16:00 05/05/20 14:06 Dexamethasone Sod Phosphate 4 Mg/Ml Vial IVPUSH 6 mg Q24H NAA Administration Enoxaparin Sodium 40 mg 05/05/20 08:45 05/06/20 07:38 Enoxaparin Sodium 40 Mg/0.4 Ml Syringe SUBCUT 40 mg Q24H NAA Administration Folic Acid 1 mg 05/01/20 16:00 05/06/20 07:39 Folic Acid 1 Mg Tablet PO 1 mg DAILY NAA Administration Gabapentin 300 mg 05/01/20 16:00 05/06/20 07:38 Gabapentin 300 Mg Capsule PO 300 mg TID NAA Administration Guaifenesin/Dextromethorphan 5 ml 05/01/20 11:50 05/06/20 06:00 Guaifenesin Dm 100/10/5 Ml 5 Ml Syrup PO 5 ml Q4H PRN Administration cough Insulin Human Lispro 0 unit 04/30/20 23:56 05/06/20 07:38 Insulin Lispro 100 Unit/Ml 3 Ml Vial SUBCUT 2 unit QIDACHS NAA Administration Protocol Loratadine 10 mg 05/01/20 16:00 05/06/20 07:39 Loratadine 10 Mg Tablet PO 10 mg DAILY NAA Administration Non-Formulary Medication 20 mg 05/01/20 16:00 05/06/20 07:39 Nebivolol [Bystolic] PO 20 mg DAILY ANA Administration Omeprazole 20 mg 05/02/20 06:30 05/06/20 05:59 Omeprazole 20 Mg Capsule. PO 20 mg DAILY@0630 [facility] Administration Ondansetron HCl 4 mg 04/30/20 23:56 Ondansetron Hcl 4 Mg/2 Ml Vial IVPUSH Q8H PRN Nausea and Vomiting Sodium Chloride 3 ml 05/01/20 00:00 05/06/20 07:39 0.9 % Sodium Chloride Flush 3 Ml Syringe IVFLUSH 3 ml QSHIFT NAA Administration Sulfasalazine 500 mg 05/01/20 16:00 05/06/20 07:39 Sulfasalazine 500 Mg Tablet PO 500 mg TID NAA Administration Labs CBC & Chem 7: 05/06/20 06:14 05/06/20 06:14 Microbiology Microbiology Results: Microbiology 04/30/20 12:58 Blood - Venous Blood Culture - Final No growth after 5 days. 04/30/20 12:44 Blood - Venous Blood Culture - Final No growth after 5 days. Assessment and Plan (1) COVID-19: Status: Acute Assessment and Plan: 65 yo M admitted for COVID 19 leading to acute hypoxic resp failure 1. COVID-19 pneumonia, severe -- leading to acute hypoxic resp. failure On HFNC -- FiO2 70%/50L -- stable last 24 hours Dexamethasone d#7; completed remdesivir course updated 2. Viral sepsis present on admission, no evidence of bacterial infection improving 3.thrombocytopenia probably due to COVID-19, continues to improve 4. DM2, A1c 7.7 correction-dose lispro, hold PO meds 5. HTN nebivolol 6. HLD atorvastatin formulary equivalent of pt's rosuvastatin 7. RA continue sulfasalazine 8. GERD protonix (pt's own home med) Full Code DVT pptx, Lovenox
[2020-05-06 11:39] LABS: Glucose, Whole Blood 212 mg/dL (60-115)
[2020-05-06] MEDS: dexAMETHasone sod phosphate 4 MG/ML VIAL 6 MG IVPUSH (14:30)
[2020-05-06 16:35] LABS: Glucose, Whole Blood 254 mg/dL (60-115)
[2020-05-06 21:04] LABS: Glucose, Whole Blood 370 mg/dL (60-115)
[2020-05-06] MEDS: Atorvastatin Calcium 80 MG TABLET PO (21:24)
[2020-05-07] VITALS (11 sets, daily range): BP systolic 120–159; BP diastolic 66–91; PULSE 62–88; RESP 12–24; TEMP 36.1–37.2; O2SAT 87–95
--- NOTE | 2020-05-07 | CT_ITS ---
EXAMINATION: CT ANGIOGRAM OF THE CHEST WITH AND WITHOUT CONTRAST (CT PULMONARY ANGIOGRAM FOR PE) CLINICAL INFORMATION: Reason for Exam increasing Oxygen requirements, elevated d-dimer, hemoptysis COMPARISON: April 30, 2020 TECHNIQUE: Prior to contrast administration, noncontrast localization images were obtained. Subsequently, multidetector volumetric imaging was performed from the thoracic inlet to below the diaphragms following the administration of 65 mL Omnipaque 350 intravenous contrast. No contrast reaction reported Sagittal, coronal, and MIP oblique sagittal reformatted images were obtained on the CT workstation, uploaded to PACS, and reviewed. This CT examination was performed using dose optimization techniques as appropriate, variously including the following: *Automated exposure control *Adjustment of mA and/or kV according to patient size (this includes techniques or standardized protocols for targeted exams where dose is matched to indication/reason for exam; i.e. extremities or head) *Use of iterative reconstruction technique Total exam dose-length product 192 mGy-cm FINDINGS: QUALITY OF STUDY/CONTRAST BOLUS: Satisfactory. PULMONARY ARTERIES: No central or segmental pulmonary emboli. THORACIC AORTA: No aneurysm or dissection. LUNG: There has been progression in diffuse interstitial and airspace disease since previous study of April 30, 2020 more prominent laterally and posteriorly.. PLEURA: No pleural effusion or pneumothorax. MEDIASTINUM: Heart normal size. Coronary artery calcification is seen. No pericardial effusion. There is mediastinal and bilateral hilar lymphadenopathy present. No evidence of septal bowing or right heart strain. CHEST WALL/AXILLA: No axillary or internal mammary lymphadenopathy. OSSEOUS STRUCTURES: No acute or suspicious osseous abnormality. UPPER ABDOMEN: Unremarkable. No reflux of contrast into the hepatic veins to suggest elevated right heart pressures. CT/CT angio chest PE protocol IMPRESSION: No evidence of acute pulmonary artery embolus. No evidence of thoracic aortic aneurysm or dissection. Some progression in diffuse interstitial and airspace disease with the appearance consistent with Covid 19. VTE: negative
[2020-05-07 06:57] LABS: Hematocrit 41.6 % (42-52); Hemoglobin 13.4 g/dl (14.0-18.0); Mean Corpuscular HGB Conc 32.2 g/dl (31.0-36.0); Mean Corpuscular Hemoglobin 28.6 pg (27.0-33.0); Mean Corpuscular Volume 88.9 fL (80-98); Mean Platelet Volume 10.9 fL (9.4-12.4); Platelet Count 202 X10*3/uL (160-400); Red Blood Count 4.68 X10*6/uL (4.60-5.80); Red Cell Distribution Width 14.2 % (11.0-16.0); White Blood Count 7.8 X10*3/uL (4.8-10.8)
[2020-05-07 07:12] LABS: D Dimer 3262 NG/ML
[2020-05-07 07:23] LABS: Anion Gap 12 (12-20); Blood Urea Nitrogen 17 mg/dL (9-16); Calcium 8.2 mg/dL (8.4-10.2); Carbon Dioxide 33 mmol/L (22-29); Chloride 99 mmol/L (96-108); Estimated Glomerular Filt Rate > 60; Glucose Random 196 mg/dL (60-115); Sodium 140 mmol/L (135-145)
[2020-05-07 07:40] LABS: Glucose, Whole Blood 172 mg/dL (60-115)
[2020-05-07] MEDS: Loratadine 10 MG TABLET PO (07:52)
[2020-05-07] MEDS: Gabapentin 300 MG CAPSULE PO ×3 (07:52→20:31)
[2020-05-07] MEDS: Folic Acid 1 MG TABLET PO (07:52)
[2020-05-07] MEDS: Aspirin Enteric Coated 81 MG TABLET.DR PO (07:52)
[2020-05-07] MEDS: sulfaSALAzine 500 MG TABLET PO ×3 (07:52→20:31)
[2020-05-07] MEDS: Enoxaparin Sodium 40 MG/0.4 ML SYRINGE SUBCUT (07:52)
[2020-05-07] MEDS: 0.9 % Sodium Chloride Flush 3 ML SYRINGE IVFLUSH ×2 (07:53→17:07)
[2020-05-07] MEDS: Insulin Lispro 100 UNIT/ML 3 ML VIAL SUBCUT ×4 (07:54→20:31)
--- NOTE | 2020-05-07 08:00 | HO.PM.IMPN ---
Subjective Subjective Date of Service: 05/07/20 Interval History: seen and examined this AM reports he feels better tells me he had mild pinkish sputum yesterday evening after a cough bout inquiring about when he may be able to be discharged ROS General - no fevers or chills Cardiovascular - no chest pain Respiratory - +SOB and cough; mild hemoptysis Abdominal- no abdominal pain, nausea, vomiting, diarrhea Physical Exam Vital Signs: Vital Signs: Last Vital Signs Temp 97.8 F 05/07/20 07:57 Pulse 79 05/07/20 07:57 Resp 12 05/07/20 07:57 BP 156/91 H 05/07/20 07:57 Pulse Ox 95 05/07/20 07:57 Body Mass Index 34.0 Const: Other: General - no acute distress, appears comfortable Cardiovascular - regular rate and rhythm, S1-S2 Lungs - comfortable at rest, hypoxia / tachypnea with minimal movement; on HFNC Fio2 70%, 50L; crackles at lung bases Abdomen - soft, nontender, no rebound or guarding Extremities - no edema bilaterally Neuro - awake and alert, no focal deficits Objective Data Current Medications Generic Name Dose Route Start Last Admin Trade Name Freq PRN Reason Stop Dose Admin Acetaminophen 650 mg 04/30/20 23:56 05/04/20 23:46 Acetaminophen 325 Mg Tablet PO 650 mg Q6H PRN Administration Pain, Mild (Pain Scale 1-3) Aspirin 81 mg 05/01/20 16:00 05/07/20 07:52 Aspirin Enteric Coated 81 Mg Tablet. PO 81 mg DAILY NAA Administration Atorvastatin Calcium 80 mg 05/01/20 21:00 05/06/20 21:24 Atorvastatin Calcium 80 Mg Tablet PO 80 mg BEDTIME NAA Administration Dexamethasone Sodium Phosphate 6 mg 05/01/20 16:00 05/06/20 14:30 Dexamethasone Sod Phosphate 4 Mg/Ml Vial IVPUSH 6 mg Q24H NAA Administration Enoxaparin Sodium 40 mg 05/05/20 08:45 05/07/20 07:52 Enoxaparin Sodium 40 Mg/0.4 Ml Syringe SUBCUT 40 mg Q24H NAA Administration Folic Acid 1 mg 05/01/20 16:00 05/07/20 07:52 Folic Acid 1 Mg Tablet PO 1 mg DAILY NAA Administration Gabapentin 300 mg 05/01/20 16:00 05/07/20 07:52 Gabapentin 300 Mg Capsule PO 300 mg TID NAA Administration Guaifenesin/Dextromethorphan 5 ml 05/01/20 11:50 05/06/20 06:00 Guaifenesin Dm 100/10/5 Ml 5 Ml Syrup PO 5 ml Q4H PRN Administration cough Insulin Human Lispro 0 unit 04/30/20 23:56 05/07/20 07:54 Insulin Lispro 100 Unit/Ml 3 Ml Vial SUBCUT 2 unit QIDACHS NAA Administration Protocol Loratadine 10 mg 05/01/20 16:00 05/07/20 07:52 Loratadine 10 Mg Tablet PO 10 mg DAILY NAA Administration Non-Formulary Medication 20 mg 05/01/20 16:00 05/07/20 07:52 Nebivolol [Bystolic] PO 20 mg DAILY NAA Administration Pt Own Protonix 40 0 each 05/06/20 11:30 05/07/20 05:56 Mg Tab PO 1 each DAILY@0630 NAA Administration Ondansetron HCl 4 mg 04/30/20 23:56 Ondansetron Hcl 4 Mg/2 Ml Vial IVPUSH Q8H PRN Nausea and Vomiting Sodium Chloride 3 ml 05/01/20 00:00 05/07/20 07:53 0.9 % Sodium Chloride Flush 3 Ml Syringe IVFLUSH 3 ml QSHIFT NAA Administration Sulfasalazine 500 mg 05/01/20 16:00 05/07/20 07:52 Sulfasalazine 500 Mg Tablet PO 500 mg TID NAA Administration Labs CBC & Chem 7: 05/07/20 06:35 05/07/20 06:35 Microbiology Microbiology Results: Microbiology 04/30/20 12:58 Blood - Venous Blood Culture - Final No growth after 5 days. 04/30/20 12:44 Blood - Venous Blood Culture - Final No growth after 5 days. Assessment and Plan (1) COVID-19: Status: Acute Assessment and Plan: 65 yo M admitted for COVID 19 leading to acute hypoxic resp failure 1. COVID-19 pneumonia, severe -- leading to acute hypoxic resp. failure On HFNC -- FiO2 90%/50L -- increasing Dexamethasone d#8/10; completed remdesivir course will recheck CTA chest to rule out PE -- d-dimer, O2 requirements increasing, mild hemoptysis as well 2. Viral sepsis present on admission, no evidence of bacterial infection improving 3.thrombocytopenia resolved probably due to COVID-19 4. DM2, A1c 7.7 sliding scale 5. HTN nebivolol 6. HLD atorvastatin formulary equivalent of pt's rosuvastatin 7. RA continue sulfasalazine 8. GERD protonix (pt's own home med) Full Code DVT pptx, Lovenox
[2020-05-07 11:24] LABS: Glucose, Whole Blood 272 mg/dL (60-115)
[2020-05-07] MEDS: iohexoL 350 MG/ML 100 ML INFUS..BTL IV (12:05)
--- NOTE | 2020-05-07 16:12 | PM.IDPN ---
Subjective Subjective Date of Service: 06/01/20 Objective Data Labs CBC & Chem 7: 05/09/20 06:22 05/09/20 06:22 Labs: Laboratory Results - last 24 hr 05/06/20 05/06/20 05/07/20 16:28 20:57 06:35 WBC 7.8 RBC 4.68 Hgb 13.4 L Hct 41.6 L MCV 88.9 MCH 28.6 MCHC 32.2 RDW 14.2 Plt Count 202 MPV 10.9 Absolute Nucleated RBC 0.000 Nucleated RBC % (auto) 0.0 D-Dimer Sodium Potassium Chloride Carbon Dioxide Anion Gap BUN Creatinine Estim Creat Clear Calc Estimated GFR POC Glucose 254 H 370 H* Random Glucose Calcium 05/07/20 05/07/20 05/07/20 06:35 06:35 07:35 WBC RBC Hgb Hct MCV MCH MCHC RDW Plt Count MPV Absolute Nucleated RBC Nucleated RBC % (auto) D-Dimer 3262 Sodium 140 Potassium 4.0 Chloride 99 Carbon Dioxide 33 H Anion Gap 12 BUN 17 H Creatinine 0.83 Estim Creat Clear Calc 107.0 Estimated GFR > 60 POC Glucose 172 H Random Glucose 196 H Calcium 8.2 L 05/07/20 11:22 WBC RBC Hgb Hct MCV MCH MCHC RDW Plt Count MPV Absolute Nucleated RBC Nucleated RBC % (auto) D-Dimer Sodium Potassium Chloride Carbon Dioxide Anion Gap BUN Creatinine Estim Creat Clear Calc Estimated GFR POC Glucose 272 H Random Glucose Calcium Microbiology Microbiology Results: Microbiology 04/30/20 12:58 Blood - Venous Blood Culture - Final No growth after 5 days. 04/30/20 12:44 Blood - Venous Blood Culture - Final No growth after 5 days. Physical Exam Vital Signs: Vital Signs: Last Vital Signs Temp 98.9 F 05/07/20 15:28 Pulse 76 05/07/20 15:28 Resp 20 05/07/20 15:28 BP 120/66 05/07/20 15:28 Pulse Ox 92 05/07/20 15:28 Body Mass Index 34.0 HENMT: Head: Yes normal to inspection Mouth: Normal oral and palatal mucosa present Eyes: General: appearance normal, both eyes and all related structures Resp: Effort & Inspection: normal respiratory effort Cardio: Rate: regular rate Rhythm: regular rhythm GI: Palpation (GI): Soft to palpation and not firm : General: Yes no CVA tenderness Back/Spine/Pelvis: Back: no CVA tenderness Skin: General skin exam: no rashes or lesions noted Assessment and Plan Assessment and plan (1) COVID-19: Status: Acute (2) Bronchitis: Problem details: Finish Dexamethasone course Status: Deleted Time Spent With Patient Time: Total time spent is greater than 50% in coordination of care (as documented) at patient's floor/unit and/or counseling patient: Time with patient: 15 - 24 minutes
[2020-05-07 16:21] LABS: Glucose, Whole Blood 268 mg/dL (60-115)
[2020-05-07] MEDS: dexAMETHasone sod phosphate 4 MG/ML VIAL 6 MG IVPUSH (17:07)
[2020-05-07 20:09] LABS: Glucose, Whole Blood 346 mg/dL (60-115)
[2020-05-07] MEDS: guaiFENesin DM 100/10/5 ML 5 ML SYRUP PO (20:31)
[2020-05-07] MEDS: Atorvastatin Calcium 80 MG TABLET PO (20:31)
[2020-05-08] VITALS (8 sets, daily range): BP systolic 123–140; BP diastolic 65–79; PULSE 66–129; RESP 10–25; TEMP 36.4–37.2; O2SAT 90–95
[2020-05-08] MEDS: 0.9 % Sodium Chloride Flush 3 ML SYRINGE IVFLUSH ×3 (00:09→16:23)
[2020-05-08 07:17] LABS: Hemoglobin 13.8 g/dl (14.0-18.0); Mean Corpuscular HGB Conc 31.4 g/dl (31.0-36.0); Mean Corpuscular Hemoglobin 27.8 pg (27.0-33.0); Mean Corpuscular Volume 88.5 fL (80-98); Mean Platelet Volume 11.3 fL (9.4-12.4); Platelet Count 252 X10*3/uL (160-400); Red Blood Count 4.97 X10*6/uL (4.60-5.80); Red Cell Distribution Width 14.2 % (11.0-16.0); White Blood Count 8.5 X10*3/uL (4.8-10.8)
[2020-05-08 07:29] LABS: Glucose, Whole Blood 265 mg/dL (60-115)
[2020-05-08 07:54] LABS: Anion Gap 13 (12-20); Blood Urea Nitrogen 19 mg/dL (9-16); Calcium 8.4 mg/dL (8.4-10.2); Carbon Dioxide 33 mmol/L (22-29); Chloride 97 mmol/L (96-108); Creatinine Clr Calc Pharmacy 95.5; Estimated Glomerular Filt Rate > 60; Glucose Random 291 mg/dL (60-115); Potassium 4.6 mmol/l (3.3-5.1); Sodium 138 mmol/L (135-145)
[2020-05-08] MEDS: Loratadine 10 MG TABLET PO (08:36)
[2020-05-08] MEDS: Gabapentin 300 MG CAPSULE PO ×3 (08:36→20:45)
[2020-05-08] MEDS: Insulin Lispro 100 UNIT/ML 3 ML VIAL SUBCUT ×4 (08:36→20:45)
[2020-05-08] MEDS: sulfaSALAzine 500 MG TABLET PO ×4 (08:36→20:45)
[2020-05-08] MEDS: Aspirin Enteric Coated 81 MG TABLET.DR PO (08:36)
[2020-05-08] MEDS: Folic Acid 1 MG TABLET PO (08:36)
[2020-05-08] MEDS: Enoxaparin Sodium 40 MG/0.4 ML SYRINGE SUBCUT (08:38)
--- NOTE | 2020-05-08 09:27 | HO.PM.IMPN ---
Subjective Subjective Date of Service: 05/08/20 Interval History: seen and examined this AM reports he rested last night feels about the same ROS General - no fevers or chills Cardiovascular - no chest pain Respiratory - +SOB and cough; mild hemoptysis Abdominal- no abdominal pain, nausea, vomiting, diarrhea Physical Exam Vital Signs: Vital Signs: Last Vital Signs Temp 97.6 F 05/08/20 08:00 Pulse 78 05/08/20 08:00 Resp 23 H 05/08/20 08:00 BP 134/76 05/08/20 08:00 Pulse Ox 93 05/08/20 08:00 Body Mass Index 34.0 Const: Other: General - no acute distress, appears comfortable Cardiovascular - regular rate and rhythm, S1-S2 Lungs - comfortable at rest, hypoxia / tachypnea with minimal movement; on HFNC Fio2 90%, 50L; fine crackles at bases Abdomen - soft, nontender, no rebound or guarding Extremities - no edema bilaterally Neuro - awake and alert, no focal deficits Objective Data Current Medications Generic Name Dose Route Start Last Admin Trade Name Kaylin PRN Reason Stop Dose Admin Acetaminophen 650 mg 04/30/20 23:56 05/04/20 23:46 Acetaminophen 325 Mg Tablet PO 650 mg Q6H PRN Administration Pain, Mild (Pain Scale 1-3) Aspirin 81 mg 05/01/20 16:00 05/08/20 08:36 Aspirin Enteric Coated 81 Mg Tablet.Dr PO 81 mg DAILY NAA Administration Atorvastatin Calcium 80 mg 05/01/20 21:00 05/07/20 20:31 Atorvastatin Calcium 80 Mg Tablet PO 80 mg BEDTIME NAA Administration Dexamethasone Sodium Phosphate 6 mg 05/01/20 16:00 05/07/20 17:07 Dexamethasone Sod Phosphate 4 Mg/Ml Vial IVPUSH 6 mg Q24H NAA Administration Enoxaparin Sodium 40 mg 05/05/20 08:45 05/08/20 08:38 Enoxaparin Sodium 40 Mg/0.4 Ml Syringe SUBCUT 40 mg Q24H NAA Administration Folic Acid 1 mg 05/01/20 16:00 05/08/20 08:36 Folic Acid 1 Mg Tablet PO 1 mg DAILY NAA Administration Gabapentin 300 mg 05/01/20 16:00 05/08/20 08:36 Gabapentin 300 Mg Capsule PO 300 mg TID NAA Administration Guaifenesin/Dextromethorphan 5 ml 05/01/20 11:50 05/07/20 20:31 Guaifenesin Dm 100/10/5 Ml 5 Ml Syrup PO 5 ml Q4H PRN Administration cough Insulin Human Lispro 0 unit 04/30/20 23:56 05/08/20 08:36 Insulin Lispro 100 Unit/Ml 3 Ml Vial SUBCUT 6 unit QIDACHS NAA Administration Protocol Loratadine 10 mg 05/01/20 16:00 05/08/20 08:36 Loratadine 10 Mg Tablet PO 10 mg DAILY NAA Administration Non-Formulary Medication 20 mg 05/01/20 16:00 05/08/20 08:35 Nebivolol [Bystolic] PO 20 mg DAILY NAA Administration Pt Own Protonix 40 0 each 05/06/20 11:30 05/08/20 05:35 Mg Tab PO 1 each DAILY@0630 NAA Administration Ondansetron HCl 4 mg 04/30/20 23:56 Ondansetron Hcl 4 Mg/2 Ml Vial IVPUSH Q8H PRN Nausea and Vomiting Sodium Chloride 3 ml 05/01/20 00:00 05/08/20 08:38 0.9 % Sodium Chloride Flush 3 Ml Syringe IVFLUSH 3 ml QSHIFT NAA Administration Sulfasalazine 500 mg 05/01/20 16:00 05/08/20 08:36 Sulfasalazine 500 Mg Tablet PO 500 mg TID NAA Administration Labs CBC & Chem 7: 05/08/20 06:38 05/08/20 06:38 Microbiology Microbiology Results: Microbiology 04/30/20 12:58 Blood - Venous Blood Culture - Final No growth after 5 days. 04/30/20 12:44 Blood - Venous Blood Culture - Final No growth after 5 days. Assessment and Plan (1) COVID-19: Status: Acute Assessment and Plan: 65 yo M admitted for COVID 19 leading to acute hypoxic resp failure 1. COVID-19 pneumonia, severe -- leading to acute hypoxic resp. failure On HFNC -- FiO2 90%/50L --stable last 24 hours Dexamethasone d#9/10; completed remdesivir course CTA negative x 2 IV lasix x 1 2. Viral sepsis present on admission, no evidence of bacterial infection improving 3.Thrombocytopenia resolved probably due to COVID-19 4. DM2, A1c 7.7 sliding scale 5. HTN nebivolol 6. HLD atorvastatin formulary equivalent of pt's rosuvastatin 7. RA continue sulfasalazine 8. GERD protonix (pt's own home med) Full Code DVT pptx, Lovenox
[2020-05-08 10:26] LABS: C Reactive Protein 6.49 mg/dL (< or = 0.50)
[2020-05-08] MEDS: Furosemide 20 MG/2 ML VIAL IVPUSH (11:41)
--- NOTE | 2020-05-08 12:26 | MHC.CLN ---
F/U PO ITNAKE 100% DIET RX: 2000DM-APPROPRIATE DIET WILL PROMOTE SLOW WT LOSS FOLLOWING
[2020-05-08 13:02] LABS: Glucose, Whole Blood 280 mg/dL (60-115)
--- NOTE | 2020-05-08 13:09 | MHC.CM.PN ---
Pt remains on the ISO unit with COVID. His O2 needs also remain high: today he is on hi flow. No plans for d/c in the next 1-2 days per MD. D/C plan will be revisited once pt stabilizes: originally, he was to return to home with spouse and no services. He may require Skilled RN and home O2 and possibly, STR/SNF. CM to follow
[2020-05-08] MEDS: dexAMETHasone sod phosphate 4 MG/ML VIAL 6 MG IVPUSH (16:23)
[2020-05-08 16:45] LABS: Glucose, Whole Blood 276 mg/dL (60-115)
--- NOTE | 2020-05-08 18:50 | PC.NURSE ---
Patient HR 120s sinus tach on tele. Patient dangling on side of bed, asymptomatic. High flow 50L, 90% O2, 02 sat 90-94%. Denies any SOB. RR 20. MD notified, no new orders at this time.
[2020-05-08 20:22] LABS: Glucose, Whole Blood 365 mg/dL (60-115)
[2020-05-08] MEDS: Atorvastatin Calcium 80 MG TABLET PO (20:45)
[2020-05-09] VITALS (10 sets, daily range): BP systolic 130–153; BP diastolic 72–85; PULSE 66–80; RESP 13–67; TEMP 35.8–36.6; O2SAT 91–95
[2020-05-09] MEDS: 0.9 % Sodium Chloride Flush 3 ML SYRINGE IVFLUSH ×4 (00:25→20:40)
[2020-05-09] MEDS: guaiFENesin DM 100/10/5 ML 5 ML SYRUP PO (02:55)
[2020-05-09 07:17] LABS: Anion Gap 12 (12-20); Blood Urea Nitrogen 17 mg/dL (9-16); Calcium 8.6 mg/dL (8.4-10.2); Carbon Dioxide 37 mmol/L (22-29); Chloride 96 mmol/L (96-108); Creatinine Clr Calc Pharmacy 95.5; Estimated Glomerular Filt Rate > 60; Glucose Random 217 mg/dL (60-115); Hematocrit 44.2 % (42-52); Hemoglobin 14.2 g/dl (14.0-18.0); Mean Corpuscular HGB Conc 32.1 g/dl (31.0-36.0); Mean Corpuscular Hemoglobin 28.7 pg (27.0-33.0); Mean Corpuscular Volume 89.5 fL (80-98); Mean Platelet Volume 11.2 fL (9.4-12.4); Platelet Count 275 X10*3/uL (160-400); Potassium 4.6 mmol/l (3.3-5.1); Red Blood Count 4.94 X10*6/uL (4.60-5.80); Red Cell Distribution Width 14.2 % (11.0-16.0); Sodium 140 mmol/L (135-145); White Blood Count 8.7 X10*3/uL (4.8-10.8)
[2020-05-09 07:42] LABS: Glucose, Whole Blood 200 mg/dL (60-115)
[2020-05-09] MEDS: Insulin Lispro 100 UNIT/ML 3 ML VIAL SUBCUT ×4 (09:10→20:38)
[2020-05-09] MEDS: Folic Acid 1 MG TABLET PO (09:11)
[2020-05-09] MEDS: sulfaSALAzine 500 MG TABLET PO ×3 (09:11→20:39)
[2020-05-09] MEDS: Loratadine 10 MG TABLET PO (09:11)
[2020-05-09] MEDS: Gabapentin 300 MG CAPSULE PO ×3 (09:11→20:39)
[2020-05-09] MEDS: Aspirin Enteric Coated 81 MG TABLET.DR PO (09:11)
[2020-05-09] MEDS: Enoxaparin Sodium 40 MG/0.4 ML SYRINGE SUBCUT (09:11)
--- NOTE | 2020-05-09 11:47 | HO.PM.IMPN ---
Subjective Subjective Date of Service: 05/09/20 Interval History: seen and examined this AM continue to feel better ROS General - no fevers or chills Cardiovascular - no chest pain Respiratory - improving sob and cough Abdominal- no abdominal pain, nausea, vomiting, diarrhea Physical Exam Vital Signs: Vital Signs: Last Vital Signs Temp 97.6 F 05/09/20 08:00 Pulse 66 05/09/20 03:30 Resp 67 H 05/09/20 08:00 BP 131/75 05/09/20 08:00 Pulse Ox 91 L 05/09/20 08:00 Body Mass Index 34.0 Const: Other: General - no acute distress, appears comfortable Cardiovascular - regular rate and rhythm, S1-S2 Lungs - no distress, improving sounds, min rales Abdomen - soft, nontender, no rebound or guarding Extremities - no edema bilaterally Neuro - awake and alert, no focal deficits Objective Data Current Medications Generic Name Dose Route Start Last Admin Trade Name Freq PRN Reason Stop Dose Admin Acetaminophen 650 mg 04/30/20 23:56 05/04/20 23:46 Acetaminophen 325 Mg Tablet PO 650 mg Q6H PRN Administration Pain, Mild (Pain Scale 1-3) Aspirin 81 mg 05/01/20 16:00 05/09/20 09:11 Aspirin Enteric Coated 81 Mg Tablet.Dr PO 81 mg DAILY NAA Administration Atorvastatin Calcium 80 mg 05/01/20 21:00 05/08/20 20:45 Atorvastatin Calcium 80 Mg Tablet PO 80 mg BEDTIME NAA Administration Dexamethasone Sodium Phosphate 6 mg 05/01/20 16:00 05/08/20 16:23 Dexamethasone Sod Phosphate 4 Mg/Ml Vial IVPUSH 6 mg Q24H NAA Administration Enoxaparin Sodium 40 mg 05/05/20 08:45 05/09/20 09:11 Enoxaparin Sodium 40 Mg/0.4 Ml Syringe SUBCUT 40 mg Q24H NAA Administration Folic Acid 1 mg 05/01/20 16:00 05/09/20 09:11 Folic Acid 1 Mg Tablet PO 1 mg DAILY NAA Administration Gabapentin 300 mg 05/01/20 16:00 05/09/20 09:11 Gabapentin 300 Mg Capsule PO 300 mg TID NAA Administration Guaifenesin/Dextromethorphan 5 ml 05/01/20 11:50 05/09/20 02:55 Guaifenesin Dm 100/10/5 Ml 5 Ml Syrup PO 5 ml Q4H PRN Administration cough Insulin Human Lispro 0 unit 04/30/20 23:56 05/09/20 09:10 Insulin Lispro 100 Unit/Ml 3 Ml Vial SUBCUT 2 unit QIDACHS NAA Administration Protocol Loratadine 10 mg 05/01/20 16:00 05/09/20 09:11 Loratadine 10 Mg Tablet PO 10 mg DAILY NAA Administration Non-Formulary Medication 20 mg 05/01/20 16:00 05/09/20 09:09 Nebivolol [Bystolic] PO 20 mg DAILY NAA Administration Pt Own Protonix 40 0 each 05/06/20 11:30 05/09/20 06:41 Mg Tab PO 40 each DAILY@0630 NAA Administration Ondansetron HCl 4 mg 04/30/20 23:56 Ondansetron Hcl 4 Mg/2 Ml Vial IVPUSH Q8H PRN Nausea and Vomiting Sodium Chloride 3 ml 05/01/20 00:00 05/09/20 09:11 0.9 % Sodium Chloride Flush 3 Ml Syringe IVFLUSH 3 ml QSHIFT NAA Administration Sulfasalazine 500 mg 05/08/20 16:15 05/09/20 09:11 Sulfasalazine 500 Mg Tablet PO 500 mg TID NAA Administration Labs CBC & Chem 7: 05/09/20 06:22 05/09/20 06:22 Microbiology Microbiology Results: Microbiology 04/30/20 12:58 Blood - Venous Blood Culture - Final No growth after 5 days. 04/30/20 12:44 Blood - Venous Blood Culture - Final No growth after 5 days. Assessment and Plan (1) COVID-19: Status: Acute Assessment and Plan: 65 yo M admitted for COVID 19 leading to acute hypoxic resp failure 1. COVID-19 pneumonia, severe -- leading to acute hypoxic resp. failure On HFNC -- on 15L by [place] Dexamethasone d#10/10; completed remdesivir course CTA negative x 2 2. Viral sepsis present on admission, no evidence of bacterial infection improving 3.Thrombocytopenia resolved probably due to COVID-19 4. DM2, A1c 7.7 sliding scale 5. HTN nebivolol 6. HLD atorvastatin formulary equivalent of pt's rosuvastatin 7. RA continue sulfasalazine 8. GERD protonix Full Code DVT pptx, Lovenox dispo: anticipate home early next week
[2020-05-09 11:48] LABS: Glucose, Whole Blood 217 mg/dL (60-115)
--- NOTE | 2020-05-09 12:59 | PC.NURSE ---
pt has been tolerating nasal cannula oxygen delivery at 15L/hr. He has saturtions 93-95% at rest. pt becomes short of breth and has lower saturation below 90% with movement. He has been able to transfer from bed to commode, sats were 89%.
[2020-05-09] MEDS: dexAMETHasone sod phosphate 4 MG/ML VIAL 6 MG IVPUSH (15:46)
[2020-05-09 16:14] LABS: Glucose, Whole Blood 240 mg/dL (60-115)
[2020-05-09 20:12] LABS: Glucose, Whole Blood 401 mg/dL (60-115)
[2020-05-09] MEDS: Insulin Glargine,Hum.rec.anlog 100 UNIT/ML 10 ML VIAL SUBCUT (20:39)
[2020-05-09] MEDS: Atorvastatin Calcium 80 MG TABLET PO (20:40)
[2020-05-10] VITALS (7 sets, daily range): BP systolic 116–148; BP diastolic 67–86; PULSE 58–78; RESP 18–21; TEMP 36.2–37; O2SAT 90–97
[2020-05-10] MEDS: 0.9 % Sodium Chloride Flush 3 ML SYRINGE IVFLUSH ×3 (07:44→20:34)
--- NOTE | 2020-05-10 07:57 | HO.PM.IMPN ---
Subjective Subjective Date of Service: 05/10/20 Interval History: seen and examined this AM continue to feel better, using ISS down to 13L NC ROS General - no fevers or chills Cardiovascular - no chest pain Respiratory - improving sob and cough Abdominal- no abdominal pain, nausea, vomiting, diarrhea Physical Exam Vital Signs: Vital Signs: Last Vital Signs Temp 97.1 F 05/10/20 03:11 Pulse 58 05/10/20 03:11 Resp 20 05/10/20 03:11 BP 148/86 H 05/10/20 03:11 Pulse Ox 95 05/10/20 03:11 Body Mass Index 34.0 Const: Other: General - no acute distress, appears comfortable Cardiovascular - regular rate and rhythm, S1-S2 Lungs - no rales, comfortable on 13L Abdomen - soft, nontender, no rebound or guarding Extremities - no edema bilaterally Neuro - awake and alert, no focal deficits Objective Data Current Medications Generic Name Dose Route Start Last Admin Trade Name Freq PRN Reason Stop Dose Admin Acetaminophen 650 mg 04/30/20 23:56 05/04/20 23:46 Acetaminophen 325 Mg Tablet PO 650 mg Q6H PRN Administration Pain, Mild (Pain Scale 1-3) Aspirin 81 mg 05/01/20 16:00 05/09/20 09:11 Aspirin Enteric Coated 81 Mg Tablet. PO 81 mg DAILY NAA Administration Atorvastatin Calcium 80 mg 05/01/20 21:00 05/09/20 20:40 Atorvastatin Calcium 80 Mg Tablet PO 80 mg BEDTIME NAA Administration Dexamethasone Sodium Phosphate 6 mg 05/01/20 16:00 05/09/20 15:46 Dexamethasone Sod Phosphate 4 Mg/Ml Vial IVPUSH 6 mg Q24H NAA Administration Enoxaparin Sodium 40 mg 05/05/20 08:45 05/09/20 09:11 Enoxaparin Sodium 40 Mg/0.4 Ml Syringe SUBCUT 40 mg Q24H NAA Administration Folic Acid 1 mg 05/01/20 16:00 05/09/20 09:11 Folic Acid 1 Mg Tablet PO 1 mg DAILY NAA Administration Gabapentin 300 mg 05/01/20 16:00 05/09/20 20:39 Gabapentin 300 Mg Capsule PO 300 mg TID NAA Administration Guaifenesin/Dextromethorphan 5 ml 05/01/20 11:50 05/09/20 02:55 Guaifenesin Dm 100/10/5 Ml 5 Ml Syrup PO 5 ml Q4H PRN Administration cough Insulin Glargine 5 unit 05/09/20 21:00 05/09/20 20:39 Insulin Glargine,Hum.Rec.Anlog 100 Unit/Ml 10 Ml Vial SUBCUT 5 unit BEDTIME NAA Administration Insulin Human Lispro 0 unit 04/30/20 23:56 05/09/20 20:38 Insulin Lispro 100 Unit/Ml 3 Ml Vial SUBCUT 10 unit QIDACHS NAA Administration Protocol Loratadine 10 mg 05/01/20 16:00 05/09/20 09:11 Loratadine 10 Mg Tablet PO 10 mg DAILY NAA Administration Non-Formulary Medication 20 mg 05/01/20 16:00 05/09/20 09:09 Nebivolol [Bystolic] PO 20 mg DAILY NAA Administration Pt Own Protonix 40 0 each 05/06/20 11:30 05/10/20 06:05 Mg Tab PO 1 each DAILY@0630 NAA Administration Ondansetron HCl 4 mg 04/30/20 23:56 Ondansetron Hcl 4 Mg/2 Ml Vial IVPUSH Q8H PRN Nausea and Vomiting Sodium Chloride 3 ml 05/01/20 00:00 05/10/20 07:44 0.9 % Sodium Chloride Flush 3 Ml Syringe IVFLUSH 3 ml QSHIFT NAA Administration Sulfasalazine 500 mg 05/08/20 16:15 05/09/20 20:39 Sulfasalazine 500 Mg Tablet PO 500 mg TID NAA Administration Labs CBC & Chem 7: 05/09/20 06:22 05/09/20 06:22 Microbiology Microbiology Results: Microbiology 04/30/20 12:58 Blood - Venous Blood Culture - Final No growth after 5 days. 04/30/20 12:44 Blood - Venous Blood Culture - Final No growth after 5 days. Assessment and Plan (1) COVID-19: Status: Acute Assessment and Plan: 65 yo M admitted for COVID 19 leading to acute hypoxic resp failure 1. COVID-19 pneumonia, severe -- leading to acute hypoxic resp. failure On HFNC -- on 13L by [place] Decadron / Remdesivir completed CTA negative x 2 2. Viral sepsis present on admission, no evidence of bacterial infection resolved 3.Thrombocytopenia resolved probably due to COVID-19 4. DM2, A1c 7.7 sliding scale 5. HTN nebivolol 6. HLD atorvastatin formulary equivalent of pt's rosuvastatin 7. RA continue sulfasalazine 8. GERD protonix Full Code DVT pptx, Lovenox dispo: anticipate home early next week
[2020-05-10 08:45] LABS: Glucose, Whole Blood 221 mg/dL (60-115)
[2020-05-10] MEDS: Enoxaparin Sodium 40 MG/0.4 ML SYRINGE SUBCUT (09:28)
[2020-05-10] MEDS: Insulin Lispro 100 UNIT/ML 3 ML VIAL SUBCUT ×4 (09:28→20:50)
[2020-05-10] MEDS: Aspirin Enteric Coated 81 MG TABLET.DR PO (09:28)
[2020-05-10] MEDS: Gabapentin 300 MG CAPSULE PO ×3 (09:28→20:30)
[2020-05-10] MEDS: Folic Acid 1 MG TABLET PO (09:29)
[2020-05-10] MEDS: Loratadine 10 MG TABLET PO (09:29)
[2020-05-10] MEDS: sulfaSALAzine 500 MG TABLET PO ×3 (09:29→20:30)
[2020-05-10 11:27] LABS: Glucose, Whole Blood 315 mg/dL (60-115)
[2020-05-10] MEDS: dexAMETHasone sod phosphate 4 MG/ML VIAL 6 MG IVPUSH (15:18)
[2020-05-10 15:54] LABS: Glucose, Whole Blood 301 mg/dL (60-115)
--- NOTE | 2020-05-10 16:38 | PC.NURSE ---
pt was been weaned from 13 to 11 liters and now down to 9 liters at this time. aturation is 92%. ill continue to monitor
[2020-05-10 19:33] LABS: Glucose, Whole Blood 432 mg/dL (60-115)
[2020-05-10] MEDS: Atorvastatin Calcium 80 MG TABLET PO (20:30)
[2020-05-10] MEDS: Insulin Glargine,Hum.rec.anlog 100 UNIT/ML 10 ML VIAL 10 UNIT SUBCUT (20:49)
[2020-05-11] VITALS (10 sets, daily range): BP systolic 112–153; BP diastolic 64–86; PULSE 65–87; RESP 16–24; TEMP 36.1–37.1; O2SAT 90–97
[2020-05-11 07:38] LABS: Glucose, Whole Blood 169 mg/dL (60-115)
[2020-05-11] MEDS: Aspirin Enteric Coated 81 MG TABLET.DR PO (08:10)
[2020-05-11] MEDS: Enoxaparin Sodium 40 MG/0.4 ML SYRINGE SUBCUT (08:10)
[2020-05-11] MEDS: sulfaSALAzine 500 MG TABLET PO ×3 (08:10→19:57)
[2020-05-11] MEDS: Loratadine 10 MG TABLET PO (08:10)
[2020-05-11] MEDS: 0.9 % Sodium Chloride Flush 3 ML SYRINGE IVFLUSH ×3 (08:10→19:57)
[2020-05-11] MEDS: Insulin Lispro 100 UNIT/ML 3 ML VIAL SUBCUT ×4 (08:10→19:57)
[2020-05-11] MEDS: Gabapentin 300 MG CAPSULE PO ×3 (08:11→19:57)
[2020-05-11] MEDS: Folic Acid 1 MG TABLET PO (08:11)
--- NOTE | 2020-05-11 08:47 | HO.PM.IMPN ---
Subjective Subjective Date of Service: 05/11/20 Interval History: seen and examined this AM reports daily improvement d/w him re: hyperglycemia -- reports he has been eating hard candy; advised him to cut back tolerating 8L this AM ROS General - no fevers or chills Cardiovascular - no chest pain Respiratory - improving sob and cough Abdominal- no abdominal pain, nausea, vomiting, diarrhea Physical Exam Vital Signs: Vital Signs: Last Vital Signs Temp 97.0 F 05/11/20 08:00 Pulse 73 05/11/20 08:00 Resp 18 05/11/20 08:00 BP 138/77 05/11/20 08:00 Pulse Ox 93 05/11/20 08:00 Body Mass Index 34.0 Const: Other: General - no acute distress, appears comfortable Cardiovascular - regular rate and rhythm, S1-S2 Lungs - dim sounds, but air entry improving daily; no distress at rest; comfortable on 8L Abdomen - soft, nontender, no rebound or guarding Extremities - no edema bilaterally Neuro - awake and alert, no focal deficits Objective Data Current Medications Generic Name Dose Route Start Last Admin Trade Name Hollandq PRN Reason Stop Dose Admin Acetaminophen 650 mg 04/30/20 23:56 05/04/20 23:46 Acetaminophen 325 Mg Tablet PO 650 mg Q6H PRN Administration Pain, Mild (Pain Scale 1-3) Aspirin 81 mg 05/01/20 16:00 05/11/20 08:10 Aspirin Enteric Coated 81 Mg Tablet. PO 81 mg DAILY NAA Administration Atorvastatin Calcium 80 mg 05/01/20 21:00 05/10/20 20:30 Atorvastatin Calcium 80 Mg Tablet PO 80 mg BEDTIME NAA Administration Dexamethasone Sodium Phosphate 6 mg 05/01/20 16:00 05/10/20 15:18 Dexamethasone Sod Phosphate 4 Mg/Ml Vial IVPUSH 6 mg Q24H NAA Administration Enoxaparin Sodium 40 mg 05/05/20 08:45 05/11/20 08:10 Enoxaparin Sodium 40 Mg/0.4 Ml Syringe SUBCUT 40 mg Q24H NAA Administration Folic Acid 1 mg 05/01/20 16:00 05/11/20 08:11 Folic Acid 1 Mg Tablet PO 1 mg DAILY NAA Administration Gabapentin 300 mg 05/01/20 16:00 05/11/20 08:11 Gabapentin 300 Mg Capsule PO 300 mg TID NAA Administration Guaifenesin/Dextromethorphan 5 ml 05/01/20 11:50 05/09/20 02:55 Guaifenesin Dm 100/10/5 Ml 5 Ml Syrup PO 5 ml Q4H PRN Administration cough Insulin Glargine 20 unit 05/11/20 21:00 Insulin Glargine,Hum.Rec.Anlog 100 Unit/Ml 10 Ml Vial SUBCUT BEDTIME NAA Insulin Human Lispro 0 unit 04/30/20 23:56 05/11/20 08:10 Insulin Lispro 100 Unit/Ml 3 Ml Vial SUBCUT 2 unit QIDACHS NAA Administration Protocol Loratadine 10 mg 05/01/20 16:00 05/11/20 08:10 Loratadine 10 Mg Tablet PO 10 mg DAILY NAA Administration Non-Formulary Medication 20 mg 05/01/20 16:00 05/11/20 08:25 Nebivolol [Bystolic] PO 20 mg DAILY NAA Administration Pt Own Protonix 40 0 each 05/06/20 11:30 05/11/20 05:51 Mg Tab PO 1 each DAILY@0630 NAA Administration Ondansetron HCl 4 mg 04/30/20 23:56 Ondansetron Hcl 4 Mg/2 Ml Vial IVPUSH Q8H PRN Nausea and Vomiting Sodium Chloride 3 ml 05/01/20 00:00 05/11/20 08:10 0.9 % Sodium Chloride Flush 3 Ml Syringe IVFLUSH 3 ml QSHIFT NAA Administration Sulfasalazine 500 mg 05/08/20 16:15 05/11/20 08:10 Sulfasalazine 500 Mg Tablet PO 500 mg TID NAA Administration Labs CBC & Chem 7: 05/09/20 06:22 05/09/20 06:22 Microbiology Microbiology Results: Microbiology 04/30/20 12:58 Blood - Venous Blood Culture - Final No growth after 5 days. 04/30/20 12:44 Blood - Venous Blood Culture - Final No growth after 5 days. Assessment and Plan (1) COVID-19: Status: Acute Assessment and Plan: 65 yo M admitted for COVID 19 leading to acute hypoxic resp failure 1. COVID-19 pneumonia, severe -- leading to acute hypoxic resp. failure On HFNC -- on 8L by [place] Decadron / Remdesivir completed CTA negative x 2 2. Viral sepsis present on admission, no evidence of bacterial infection resolved 3.Thrombocytopenia resolved probably due to COVID-19 4. DM2, A1c 7.7 uncontrolled - likely 2/2 to stress + steroids sliding scale 5. HTN nebivolol 6. HLD atorvastatin formulary equivalent of pt's rosuvastatin 7. RA continue sulfasalazine 8. GERD protonix Full Code DVT pptx, Lovenox dispo: anticipate home next few days +/- with home O2
--- NOTE | 2020-05-11 08:53 | MHC.CM.PN ---
dc plan was originally home no svcs. however, pt may require str at dc pending a PT eval. hence, dc plan is uncertain at this time. cm to cont. to follow.
[2020-05-11 11:24] LABS: Glucose, Whole Blood 257 mg/dL (60-115)
[2020-05-11 15:34] LABS: Glucose, Whole Blood 245 mg/dL (60-115)
[2020-05-11 19:40] LABS: Glucose, Whole Blood 338 mg/dL (60-115)
[2020-05-11] MEDS: Insulin Glargine,Hum.rec.anlog 100 UNIT/ML 10 ML VIAL 10 UNIT SUBCUT (19:56)
[2020-05-11] MEDS: Atorvastatin Calcium 80 MG TABLET PO (19:57)
[2020-05-12] VITALS: BP 126/72; PULSE 74; RESP 16; TEMP 36.4; O2SAT 93
[2020-05-12 04:00] VITALS: BP 131/80; PULSE 69; RESP 21; TEMP 36.6; O2SAT 95
[2020-05-12 08:00] VITALS: BP 148/92; PULSE 74; RESP 16; TEMP 36.6; O2SAT 94
[2020-05-12 08:47] LABS: Glucose, Whole Blood 220 mg/dL (60-115)
[2020-05-12] MEDS: Insulin Lispro 100 UNIT/ML 3 ML VIAL SUBCUT ×2 (09:22→13:14)
[2020-05-12] MEDS: 0.9 % Sodium Chloride Flush 3 ML SYRINGE IVFLUSH ×2 (09:23→16:25)
[2020-05-12] MEDS: Aspirin Enteric Coated 81 MG TABLET.DR PO (09:23)
[2020-05-12] MEDS: Folic Acid 1 MG TABLET PO (09:23)
[2020-05-12] MEDS: Loratadine 10 MG TABLET PO (09:23)
[2020-05-12] MEDS: Gabapentin 300 MG CAPSULE PO ×2 (09:23→16:25)
[2020-05-12] MEDS: sulfaSALAzine 500 MG TABLET PO ×2 (09:23→16:25)
[2020-05-12] MEDS: Enoxaparin Sodium 40 MG/0.4 ML SYRINGE SUBCUT (09:23)
[2020-05-12 11:17] VITALS: BP 133/78; PULSE 80; RESP 17; TEMP 36.6; O2SAT 93
[2020-05-12 11:48] VITALS: PULSE 80; PULSE 82; O2SAT 87; O2SAT 93; O2SAT 95
[2020-05-12 12:07] LABS: Glucose, Whole Blood 326 mg/dL (60-115)
--- NOTE | 2020-05-12 12:18 | P.DS_ITS ---
DS: Providers Provider Date of Service: 05/12/20 Date of admission: 04/30/20 17:55 Primary care physician: Unknown Physician Consults: 04/30/20 18:50 Consult to Infectious Diseases Routine Consulting Provider: Elvia Harding Reason for consultation: COVID-19 onset 6d ago? start remdesvir? 04/30/20 23:56 Consult to Infectious Diseases Routine Consulting Provider: Elvia Harding Reason for consultation: acute respiratory failure, covid Has provider been notified: No DS: Diagnosis Discharge Diagnosis (1) COVID-19: Status: Acute (2) Acute respiratory failure with hypoxia: Status: Acute DS: Medications Discharge Medications Home Medications: Home Medications Medication Instructions Recorded Confirmed Bystolic 20 mg PO DAILY 04/30/20 04/30/20 Fish Oil 1 cap PO BID 04/30/20 04/30/20 Janumet XR 1 tab PO BID 04/30/20 04/30/20 Jardiance 10 mg PO DAILY 04/30/20 04/30/20 aspirin 81 mg PO DAILY 04/30/20 04/30/20 celecoxib 200 mg PO DAILY 04/30/20 04/30/20 folic acid 1 mg PO DAILY 04/30/20 04/30/20 gabapentin 300 mg PO TID 04/30/20 04/30/20 loratadine 10 mg PO DAILY 04/30/20 04/30/20 pantoprazole 40 mg PO DAILY 04/30/20 04/30/20 rosuvastatin [Crestor] 20 mg PO DAILY 04/30/20 04/30/20 sulfasalazine 500 mg PO TID 04/30/20 04/30/20 DS: Summary Hospital Course Hospital Course: Patient was admitted for acute hypoxic respiratory failure secondary to cover pneumonia. He was given steroids. Oxygen was weaned. He is now feeling much better and is clearly over his Peak illness. He is still requiring 3 L of oxygen and will be going home on 3 L home O2 to hopefully wean in the near future. Time Spent with Patient Time attestation: Total time spent providing and/or coordinating discharge services: Discharge coordination time: Greater than 30 minutes Physical Exam Vital Signs: Vital Signs: Last Vital Signs Temp 97.9 F 05/12/20 11:17 Pulse 80 05/12/20 11:17 Resp 17 05/12/20 11:17 BP 133/78 05/12/20 11:17 Pulse Ox 93 05/12/20 11:17 Body Mass Index 34.0 General: AO X 3, no acute distress Resp: CTA bilateral CVS: S1,S2,RRR GI: soft, non tender, non distended Neuro: motor grossly intact Psych: appropriate affect DS: Data Data Completed and Pending Labs on day of discharge: Laboratory Tests 04/30/20 04/30/20 04/30/20 12:44 12:45 12:45 WBC RBC Hgb Hct MCV MCH MCHC RDW Plt Count MPV Immature Gran % (Auto) Neut % (Auto) Lymph % (Auto) [place] % (Auto) Eos % (Auto) Baso % (Auto) Lymph # (Auto) [place] # (Auto) Eos # (Auto) Baso # (Auto) Abs Immat Gran (auto) Absolute Neuts (auto) Absolute Nucleated RBC Nucleated RBC % (auto) Smear Tech's Comments PT INR APTT D-Dimer Sodium 138 Potassium 4.1 Chloride 104 Carbon Dioxide 18 L Anion Gap 20 BUN 21 H Creatinine 0.94 Estim Creat Clear Calc 94.4 Estimated GFR > 60 POC Glucose Random Glucose 247 H Estimat Average Glucose Hemoglobin A1c % Lactic Acid 1.6 Calcium 8.2 L Ferritin 141 Total Bilirubin 0.6 Direct Bilirubin 0.2 AST 30 ALT 30 Alkaline Phosphatase 75 Lactate Dehydrogenase 365 H Troponin I High Sens 7.5 C-Reactive Protein 18.78 H Total Protein 6.9 Albumin 4.2 Procalcitonin 04/30/20 04/30/20 04/30/20 12:45 12:45 12:58 WBC 5.2 RBC 5.03 Hgb 14.3 Hct 45.0 MCV 89.5 MCH 28.4 MCHC 31.8 RDW 15.5 Plt Count 98 L MPV 11.6 Immature Gran % (Auto) 1.0 H Neut % (Auto) 75.8 H Lymph % (Auto) 13.2 L [place] % (Auto) 9.4 Eos % (Auto) 0.2 Baso % (Auto) 0.4 Lymph # (Auto) 0.7 L [place] # (Auto) 0.5 Eos # (Auto) 0.0 Baso # (Auto) 0.0 Abs Immat Gran (auto) 0.05 H Absolute Neuts (auto) 4.0 Absolute Nucleated RBC 0.000 Nucleated RBC % (auto) 0.0 Smear Tech's Comments PT 14.0 H INR 1.2 H APTT 37.5 D-Dimer 343 Sodium Potassium Chloride Carbon Dioxide Anion Gap BUN Creatinine Estim Creat Clear Calc Estimated GFR POC Glucose Random Glucose Estimat Average Glucose Hemoglobin A1c % Lactic Acid Calcium Ferritin Total Bilirubin Direct Bilirubin AST ALT Alkaline Phosphatase Lactate Dehydrogenase Troponin I High Sens C-Reactive Protein Total Protein Albumin Procalcitonin 0.29 04/30/20 04/30/20 05/01/20 16:14 23:51 06:08 WBC 5.5 RBC 4.81 Hgb 13.6 L Hct 43.0 MCV 89.4 MCH 28.3 MCHC 31.6 RDW 15.0 Plt Count 110 L MPV 12.2 Immature Gran % (Auto) 0.9 H Neut % (Auto) 72.1 Lymph % (Auto) 16.5 L [place] % (Auto) 10.3 Eos % (Auto) 0.0 Baso % (Auto) 0.2 Lymph # (Auto) 0.9 L [place] # (Auto) 0.6 Eos # (Auto) 0.0 Baso # (Auto) 0.0 Abs Immat Gran (auto) 0.05 H Absolute Neuts (auto) 3.9 Absolute Nucleated RBC 0.000 Nucleated RBC % (auto) 0.0 Smear Tech's Comments PT INR APTT D-Dimer Sodium Potassium Chloride Carbon Dioxide Anion Gap BUN Creatinine Estim Creat Clear Calc Estimated GFR POC Glucose 247 H Random Glucose Estimat Average Glucose Hemoglobin A1c % Lactic Acid Calcium Ferritin Total Bilirubin Direct Bilirubin AST ALT Alkaline Phosphatase Lactate Dehydrogenase Troponin I High Sens 10.8 C-Reactive Protein Total Protein Albumin Procalcitonin 05/01/20 05/01/20 05/01/20 06:08 06:08 07:56 WBC RBC Hgb Hct MCV MCH MCHC RDW Plt Count MPV Immature Gran % (Auto) Neut % (Auto) Lymph % (Auto) [place] % (Auto) Eos % (Auto) Baso % (Auto) Lymph # (Auto) [place] # (Auto) Eos # (Auto) Baso # (Auto) Abs Immat Gran (auto) Absolute Neuts (auto) Absolute Nucleated RBC Nucleated RBC % (auto) Smear Tech's Comments PT INR APTT D-Dimer Sodium 139 Potassium 4.7 Chloride 105 Carbon Dioxide 21 L Anion Gap 18 BUN 21 H Creatinine 0.81 Estim Creat Clear Calc 109.6 Estimated GFR > 60 POC Glucose 127 H Random Glucose 153 H D Estimat Average Glucose 174 Hemoglobin A1c % 7.7 Lactic Acid Calcium 8.0 L Ferritin Total Bilirubin 0.5 Direct Bilirubin 0.2 AST 27 ALT 25 Alkaline Phosphatase 68 Lactate Dehydrogenase Troponin I High Sens C-Reactive Protein Total Protein 6.2 L Albumin 3.8 Procalcitonin 05/01/20 05/01/20 05/01/20 11:28 16:08 21:00 WBC RBC Hgb Hct MCV MCH MCHC RDW Plt Count MPV Immature Gran % (Auto) Neut % (Auto) Lymph % (Auto) [place] % (Auto) Eos % (Auto) Baso % (Auto) Lymph # (Auto) [place] # (Auto) Eos # (Auto) Baso # (Auto) Abs Immat Gran (auto) Absolute Neuts (auto) Absolute Nucleated RBC Nucleated RBC % (auto) Smear Tech's Comments PT INR APTT D-Dimer Sodium Potassium Chloride Carbon Dioxide Anion Gap BUN Creatinine Estim Creat Clear Calc Estimated GFR POC Glucose 223 H 216 H 268 H Random Glucose Estimat Average Glucose Hemoglobin A1c % Lactic Acid Calcium Ferritin Total Bilirubin Direct Bilirubin AST ALT Alkaline Phosphatase Lactate Dehydrogenase Troponin I High Sens C-Reactive Protein Total Protein Albumin Procalcitonin 05/02/20 05/02/20 05/02/20 06:17 06:17 06:17 WBC 5.7 RBC 4.95 Hgb 13.8 L Hct 43.6 MCV 88.1 MCH 27.9 MCHC 31.7 RDW 14.9 Plt Count 119 L MPV 11.3 Immature Gran % (Auto) 0.5 H Neut % (Auto) 74.7 H Lymph % (Auto) 16.7 L [place] % (Auto) 7.9 Eos % (Auto) 0.0 Baso % (Auto) 0.2 Lymph # (Auto) 1.0 L [place] # (Auto) 0.5 Eos # (Auto) 0.0 Baso # (Auto) 0.0 Abs Immat Gran (auto) 0.03 Absolute Neuts (auto) 4.3 Absolute Nucleated RBC 0.000 Nucleated RBC % (auto) 0.0 Smear Tech's Comments Not Reportable PT INR APTT D-Dimer 301 Sodium 138 Potassium 4.4 Chloride 101 Carbon Dioxide 27 Anion Gap 14 BUN 23 H Creatinine 0.81 Estim Creat Clear Calc 109.6 Estimated GFR > 60 POC Glucose Random Glucose 206 H Estimat Average Glucose Hemoglobin A1c % Lactic Acid Calcium 7.9 L Ferritin 338 H Total Bilirubin 0.6 Direct Bilirubin AST 30 ALT 24 Alkaline Phosphatase 68 Lactate Dehydrogenase 439 H Troponin I High Sens C-Reactive Protein 13.61 H Total Protein 6.1 L Albumin 3.8 Procalcitonin 05/02/20 05/02/20 05/02/20 06:17 07:24 11:13 WBC RBC Hgb Hct MCV MCH MCHC RDW Plt Count MPV Immature Gran % (Auto) Neut % (Auto) Lymph % (Auto) [place] % (Auto) Eos % (Auto) Baso % (Auto) Lymph # (Auto) [place] # (Auto) Eos # (Auto) Baso # (Auto) Abs Immat Gran (auto) Absolute Neuts (auto) Absolute Nucleated RBC Nucleated RBC % (auto) Smear Tech's Comments PT INR APTT D-Dimer Sodium Potassium Chloride Carbon Dioxide Anion Gap BUN Creatinine Estim Creat Clear Calc Estimated GFR POC Glucose 167 H 273 H Random Glucose Estimat Average Glucose Hemoglobin A1c % Lactic Acid Calcium Ferritin Total Bilirubin Direct Bilirubin AST ALT Alkaline Phosphatase Lactate Dehydrogenase Troponin I High Sens C-Reactive Protein Total Protein Albumin Procalcitonin 0.23 05/02/20 05/02/20 05/03/20 15:58 19:50 07:19 WBC RBC Hgb Hct MCV MCH MCHC RDW Plt Count MPV Immature Gran % (Auto) Neut % (Auto) Lymph % (Auto) [place] % (Auto) Eos % (Auto) Baso % (Auto) Lymph # (Auto) [place] # (Auto) Eos # (Auto) Baso # (Auto) Abs Immat Gran (auto) Absolute Neuts (auto) Absolute Nucleated RBC Nucleated RBC % (auto) Smear Tech's Comments PT INR APTT D-Dimer Sodium Potassium Chloride Carbon Dioxide Anion Gap BUN Creatinine Estim Creat Clear Calc Estimated GFR POC Glucose 276 H 281 H 236 H Random Glucose Estimat Average Glucose Hemoglobin A1c % Lactic Acid Calcium Ferritin Total Bilirubin Direct Bilirubin AST ALT Alkaline Phosphatase Lactate Dehydrogenase Troponin I High Sens C-Reactive Protein Total Protein Albumin Procalcitonin 05/03/20 05/03/20 05/03/20 07:33 07:33 11:17 WBC 5.7 RBC 4.71 Hgb 13.4 L Hct 41.8 L MCV 88.7 MCH 28.5 MCHC 32.1 RDW 14.6 Plt Count 120 L MPV 11.6 Immature Gran % (Auto) 0.7 H Neut % (Auto) 71.7 Lymph % (Auto) 17.0 L [place] % (Auto) 10.4 Eos % (Auto) 0.0 Baso % (Auto) 0.2 Lymph # (Auto) 1.0 L [place] # (Auto) 0.6 Eos # (Auto) 0.0 Baso # (Auto) 0.0 Abs Immat Gran (auto) 0.04 H Absolute Neuts (auto) 4.1 Absolute Nucleated RBC 0.000 Nucleated RBC % (auto) 0.0 Smear Tech's Comments Not Reportable PT INR APTT D-Dimer Sodium 139 Potassium 3.7 Chloride 100 Carbon Dioxide 27 Anion Gap 16 BUN 23 H Creatinine 0.84 Estim Creat Clear Calc 105.7 Estimated GFR > 60 POC Glucose 295 H Random Glucose 254 H Estimat Average Glucose Hemoglobin A1c % Lactic Acid Calcium 7.7 L Ferritin Total Bilirubin 0.6 Direct Bilirubin AST 32 ALT 28 Alkaline Phosphatase 65 Lactate Dehydrogenase Troponin I High Sens C-Reactive Protein Total Protein 5.7 L Albumin 3.6 Procalcitonin 05/03/20 05/03/20 05/03/20 17:22 19:53 21:09 WBC RBC Hgb Hct MCV MCH MCHC RDW Plt Count MPV Immature Gran % (Auto) Neut % (Auto) Lymph % (Auto) [place] % (Auto) Eos % (Auto) Baso % (Auto) Lymph # (Auto) [place] # (Auto) Eos # (Auto) Baso # (Auto) Abs Immat Gran (auto) Absolute Neuts (auto) Absolute Nucleated RBC Nucleated RBC % (auto) Smear Tech's Comments PT INR APTT D-Dimer Sodium Potassium Chloride Carbon Dioxide Anion Gap BUN Creatinine Estim Creat Clear Calc Estimated GFR POC Glucose 197 H 331 H 303 H Random Glucose Estimat Average Glucose Hemoglobin A1c % Lactic Acid Calcium Ferritin Total Bilirubin Direct Bilirubin AST ALT Alkaline Phosphatase Lactate Dehydrogenase Troponin I High Sens C-Reactive Protein Total Protein Albumin Procalcitonin 05/04/20 05/04/20 05/04/20 06:36 06:36 06:36 WBC 5.5 RBC 4.68 Hgb 13.3 L Hct 41.4 L MCV 88.5 MCH 28.4 MCHC 32.1 RDW 14.6 Plt Count 136 L MPV 11.5 Immature Gran % (Auto) 0.7 H Neut % (Auto) 71.7 Lymph % (Auto) 20.4 [place] % (Auto) 7.0 Eos % (Auto) 0.0 Baso % (Auto) 0.2 Lymph # (Auto) 1.1 L [place] # (Auto) 0.4 Eos # (Auto) 0.0 Baso # (Auto) 0.0 Abs Immat Gran (auto) 0.04 H Absolute Neuts (auto) 4.0 Absolute Nucleated RBC 0.000 Nucleated RBC % (auto) 0.0 Smear Tech's Comments VERIFIED PT INR APTT D-Dimer 839 Sodium 141 Potassium 4.1 Chloride 101 Carbon Dioxide 31 H Anion Gap 13 BUN 20 H Creatinine 0.74 Estim Creat Clear Calc 120.0 Estimated GFR > 60 POC Glucose Random Glucose 226 H Estimat Average Glucose Hemoglobin A1c % Lactic Acid Calcium 8.2 L D Ferritin 319 H Total Bilirubin 0.5 Direct Bilirubin AST 36 ALT 34 Alkaline Phosphatase 72 Lactate Dehydrogenase 485 H Troponin I High Sens C-Reactive Protein 9.19 H Total Protein 5.6 L Albumin 3.4 L Procalcitonin 05/04/20 05/04/20 05/04/20 06:36 08:23 11:53 WBC RBC Hgb Hct MCV MCH MCHC RDW Plt Count MPV Immature Gran % (Auto) Neut % (Auto) Lymph % (Auto) [place] % (Auto) Eos % (Auto) Baso % (Auto) Lymph # (Auto) [place] # (Auto) Eos # (Auto) Baso # (Auto) Abs Immat Gran (auto) Absolute Neuts (auto) Absolute Nucleated RBC Nucleated RBC % (auto) Smear Tech's Comments PT INR APTT D-Dimer Sodium Potassium Chloride Carbon Dioxide Anion Gap BUN Creatinine Estim Creat Clear Calc Estimated GFR POC Glucose 178 H 234 H Random Glucose Estimat Average Glucose Hemoglobin A1c % Lactic Acid Calcium Ferritin Total Bilirubin Direct Bilirubin AST ALT Alkaline Phosphatase Lactate Dehydrogenase Troponin I High Sens C-Reactive Protein Total Protein Albumin Procalcitonin 0.09 05/04/20 05/04/20 05/05/20 16:39 21:02 07:30 WBC RBC Hgb Hct MCV MCH MCHC RDW Plt Count MPV Immature Gran % (Auto) Neut % (Auto) Lymph % (Auto) [place] % (Auto) Eos % (Auto) Baso % (Auto) Lymph # (Auto) [place] # (Auto) Eos # (Auto) Baso # (Auto) Abs Immat Gran (auto) Absolute Neuts (auto) Absolute Nucleated RBC Nucleated RBC % (auto) Smear Tech's Comments PT INR APTT D-Dimer Sodium Potassium Chloride Carbon Dioxide Anion Gap BUN Creatinine Estim Creat Clear Calc Estimated GFR POC Glucose 257 H 256 H 270 H Random Glucose Estimat Average Glucose Hemoglobin A1c % Lactic Acid Calcium Ferritin Total Bilirubin Direct Bilirubin AST ALT Alkaline Phosphatase Lactate Dehydrogenase Troponin I High Sens C-Reactive Protein Total Protein Albumin Procalcitonin 05/05/20 05/05/20 05/05/20 11:19 16:50 21:08 WBC RBC Hgb Hct MCV MCH MCHC RDW Plt Count MPV Immature Gran % (Auto) Neut % (Auto) Lymph % (Auto) [place] % (Auto) Eos % (Auto) Baso % (Auto) Lymph # (Auto) [place] # (Auto) Eos # (Auto) Baso # (Auto) Abs Immat Gran (auto) Absolute Neuts (auto) Absolute Nucleated RBC Nucleated RBC % (auto) Smear Tech's Comments PT INR APTT D-Dimer Sodium Potassium Chloride Carbon Dioxide Anion Gap BUN Creatinine Estim Creat Clear Calc Estimated GFR POC Glucose 307 H 187 H 301 H Random Glucose Estimat Average Glucose Hemoglobin A1c % Lactic Acid Calcium Ferritin Total Bilirubin Direct Bilirubin AST ALT Alkaline Phosphatase Lactate Dehydrogenase Troponin I High Sens C-Reactive Protein Total Protein Albumin Procalcitonin 05/06/20 05/06/20 05/06/20 06:14 06:14 06:14 WBC 7.5 RBC 4.96 Hgb 14.1 Hct 43.8 MCV 88.3 MCH 28.4 MCHC 32.2 RDW 14.4 Plt Count 200 D MPV 11.0 Immature Gran % (Auto) Neut % (Auto) Lymph % (Auto) [place] % (Auto) Eos % (Auto) Baso % (Auto) Lymph # (Auto) [place] # (Auto) Eos # (Auto) Baso # (Auto) Abs Immat Gran (auto) Absolute Neuts (auto) Absolute Nucleated RBC 0.000 Nucleated RBC % (auto) 0.0 Smear Tech's Comments PT INR APTT D-Dimer 3210 Sodium 141 Potassium 3.7 Chloride 98 Carbon Dioxide 33 H Anion Gap 14 BUN 15 Creatinine 0.73 Estim Creat Clear Calc 121.6 Estimated GFR > 60 POC Glucose Random Glucose 179 H Estimat Average Glucose Hemoglobin A1c % Lactic Acid Calcium 8.3 L Ferritin Total Bilirubin 0.6 Direct Bilirubin 0.3 AST 36 ALT 38 Alkaline Phosphatase 82 Lactate Dehydrogenase Troponin I High Sens C-Reactive Protein 9.29 H Total Protein 5.8 L Albumin 3.4 L Procalcitonin 05/06/20 05/06/20 05/06/20 06:35 07:24 11:31 WBC RBC Hgb Hct MCV MCH MCHC RDW Plt Count MPV Immature Gran % (Auto) Neut % (Auto) Lymph % (Auto) [place] % (Auto) Eos % (Auto) Baso % (Auto) Lymph # (Auto) [place] # (Auto) Eos # (Auto) Baso # (Auto) Abs Immat Gran (auto) Absolute Neuts (auto) Absolute Nucleated RBC Nucleated RBC % (auto) Smear Tech's Comments PT INR APTT D-Dimer Sodium Potassium Chloride Carbon Dioxide Anion Gap BUN Creatinine Estim Creat Clear Calc Estimated GFR POC Glucose 162 H 212 H Random Glucose Estimat Average Glucose Hemoglobin A1c % Lactic Acid Calcium Ferritin Total Bilirubin Direct Bilirubin AST ALT Alkaline Phosphatase Lactate Dehydrogenase Troponin I High Sens C-Reactive Protein Total Protein Albumin Procalcitonin 0.08 05/06/20 05/06/20 05/07/20 16:28 20:57 06:35 WBC 7.8 RBC 4.68 Hgb 13.4 L Hct 41.6 L MCV 88.9 MCH 28.6 MCHC 32.2 RDW 14.2 Plt Count 202 MPV 10.9 Immature Gran % (Auto) Neut % (Auto) Lymph % (Auto) [place] % (Auto) Eos % (Auto) Baso % (Auto) Lymph # (Auto) [place] # (Auto) Eos # (Auto) Baso # (Auto) Abs Immat Gran (auto) Absolute Neuts (auto) Absolute Nucleated RBC 0.000 Nucleated RBC % (auto) 0.0 Smear Tech's Comments PT INR APTT D-Dimer Sodium Potassium Chloride Carbon Dioxide Anion Gap BUN Creatinine Estim Creat Clear Calc Estimated GFR POC Glucose 254 H 370 H* Random Glucose Estimat Average Glucose Hemoglobin A1c % Lactic Acid Calcium Ferritin Total Bilirubin Direct Bilirubin AST ALT Alkaline Phosphatase Lactate Dehydrogenase Troponin I High Sens C-Reactive Protein Total Protein Albumin Procalcitonin 05/07/20 05/07/20 05/07/20 06:35 06:35 07:35 WBC RBC Hgb Hct MCV MCH MCHC RDW Plt Count MPV Immature Gran % (Auto) Neut % (Auto) Lymph % (Auto) [place] % (Auto) Eos % (Auto) Baso % (Auto) Lymph # (Auto) [place] # (Auto) Eos # (Auto) Baso # (Auto) Abs Immat Gran (auto) Absolute Neuts (auto) Absolute Nucleated RBC Nucleated RBC % (auto) Smear Tech's Comments PT INR APTT D-Dimer 3262 Sodium 140 Potassium 4.0 Chloride 99 Carbon Dioxide 33 H Anion Gap 12 BUN 17 H Creatinine 0.83 Estim Creat Clear Calc 107.0 Estimated GFR > 60 POC Glucose 172 H Random Glucose 196 H Estimat Average Glucose Hemoglobin A1c % Lactic Acid Calcium 8.2 L Ferritin Total Bilirubin Direct Bilirubin AST ALT Alkaline Phosphatase Lactate Dehydrogenase Troponin I High Sens C-Reactive Protein Total Protein Albumin Procalcitonin 05/07/20 05/07/20 05/07/20 11:22 16:19 20:06 WBC RBC Hgb Hct MCV MCH MCHC RDW Plt Count MPV Immature Gran % (Auto) Neut % (Auto) Lymph % (Auto) [place] % (Auto) Eos % (Auto) Baso % (Auto) Lymph # (Auto) [place] # (Auto) Eos # (Auto) Baso # (Auto) Abs Immat Gran (auto) Absolute Neuts (auto) Absolute Nucleated RBC Nucleated RBC % (auto) Smear Tech's Comments PT INR APTT D-Dimer Sodium Potassium Chloride Carbon Dioxide Anion Gap BUN Creatinine Estim Creat Clear Calc Estimated GFR POC Glucose 272 H 268 H 346 H Random Glucose Estimat Average Glucose Hemoglobin A1c % Lactic Acid Calcium Ferritin Total Bilirubin Direct Bilirubin AST ALT Alkaline Phosphatase Lactate Dehydrogenase Troponin I High Sens C-Reactive Protein Total Protein Albumin Procalcitonin 05/08/20 05/08/20 05/08/20 06:38 06:38 07:25 WBC 8.5 RBC 4.97 Hgb 13.8 L Hct 44.0 MCV 88.5 MCH 27.8 MCHC 31.4 RDW 14.2 Plt Count 252 MPV 11.3 Immature Gran % (Auto) Neut % (Auto) Lymph % (Auto) [place] % (Auto) Eos % (Auto) Baso % (Auto) Lymph # (Auto) [place] # (Auto) Eos # (Auto) Baso # (Auto) Abs Immat Gran (auto) Absolute Neuts (auto) Absolute Nucleated RBC 0.000 Nucleated RBC % (auto) 0.0 Smear Tech's Comments PT INR APTT D-Dimer Sodium 138 Potassium 4.6 Chloride 97 Carbon Dioxide 33 H Anion Gap 13 BUN 19 H Creatinine 0.93 Estim Creat Clear Calc 95.5 Estimated GFR > 60 POC Glucose 265 H Random Glucose 291 H D Estimat Average Glucose Hemoglobin A1c % Lactic Acid Calcium 8.4 Ferritin Total Bilirubin Direct Bilirubin AST ALT Alkaline Phosphatase Lactate Dehydrogenase Troponin I High Sens C-Reactive Protein 6.49 H Total Protein Albumin Procalcitonin 05/08/20 05/08/20 05/08/20 11:13 16:41 20:15 WBC RBC Hgb Hct MCV MCH MCHC RDW Plt Count MPV Immature Gran % (Auto) Neut % (Auto) Lymph % (Auto) [place] % (Auto) Eos % (Auto) Baso % (Auto) Lymph # (Auto) [place] # (Auto) Eos # (Auto) Baso # (Auto) Abs Immat Gran (auto) Absolute Neuts (auto) Absolute Nucleated RBC Nucleated RBC % (auto) Smear Tech's Comments PT INR APTT D-Dimer Sodium Potassium Chloride Carbon Dioxide Anion Gap BUN Creatinine Estim Creat Clear Calc Estimated GFR POC Glucose 280 H 276 H 365 H* Random Glucose Estimat Average Glucose Hemoglobin A1c % Lactic Acid Calcium Ferritin Total Bilirubin Direct Bilirubin AST ALT Alkaline Phosphatase Lactate Dehydrogenase Troponin I High Sens C-Reactive Protein Total Protein Albumin Procalcitonin 05/09/20 05/09/20 05/09/20 06:22 06:22 07:29 WBC 8.7 RBC 4.94 Hgb 14.2 Hct 44.2 MCV 89.5 MCH 28.7 MCHC 32.1 RDW 14.2 Plt Count 275 MPV 11.2 Immature Gran % (Auto) Neut % (Auto) Lymph % (Auto) [place] % (Auto) Eos % (Auto) Baso % (Auto) Lymph # (Auto) [place] # (Auto) Eos # (Auto) Baso # (Auto) Abs Immat Gran (auto) Absolute Neuts (auto) Absolute Nucleated RBC 0.000 Nucleated RBC % (auto) 0.0 Smear Tech's Comments PT INR APTT D-Dimer Sodium 140 Potassium 4.6 Chloride 96 Carbon Dioxide 37 H Anion Gap 12 BUN 17 H Creatinine 0.93 Estim Creat Clear Calc 95.5 Estimated GFR > 60 POC Glucose 200 H Random Glucose 217 H Estimat Average Glucose Hemoglobin A1c % Lactic Acid Calcium 8.6 Ferritin Total Bilirubin Direct Bilirubin AST ALT Alkaline Phosphatase Lactate Dehydrogenase Troponin I High Sens C-Reactive Protein Total Protein Albumin Procalcitonin 05/09/20 05/09/20 05/09/20 11:36 16:09 20:02 WBC RBC Hgb Hct MCV MCH MCHC RDW Plt Count MPV Immature Gran % (Auto) Neut % (Auto) Lymph % (Auto) [place] % (Auto) Eos % (Auto) Baso % (Auto) Lymph # (Auto) [place] # (Auto) Eos # (Auto) Baso # (Auto) Abs Immat Gran (auto) Absolute Neuts (auto) Absolute Nucleated RBC Nucleated RBC % (auto) Smear Tech's Comments PT INR APTT D-Dimer Sodium Potassium Chloride Carbon Dioxide Anion Gap BUN Creatinine Estim Creat Clear Calc Estimated GFR POC Glucose 217 H 240 H 401 H* Random Glucose Estimat Average Glucose Hemoglobin A1c % Lactic Acid Calcium Ferritin Total Bilirubin Direct Bilirubin AST ALT Alkaline Phosphatase Lactate Dehydrogenase Troponin I High Sens C-Reactive Protein Total Protein Albumin Procalcitonin 05/10/20 05/10/20 05/10/20 07:57 11:17 15:45 WBC RBC Hgb Hct MCV MCH MCHC RDW Plt Count MPV Immature Gran % (Auto) Neut % (Auto) Lymph % (Auto) [place] % (Auto) Eos % (Auto) Baso % (Auto) Lymph # (Auto) [place] # (Auto) Eos # (Auto) Baso # (Auto) Abs Immat Gran (auto) Absolute Neuts (auto) Absolute Nucleated RBC Nucleated RBC % (auto) Smear Tech's Comments PT INR APTT D-Dimer Sodium Potassium Chloride Carbon Dioxide Anion Gap BUN Creatinine Estim Creat Clear Calc Estimated GFR POC Glucose 221 H 315 H 301 H Random Glucose Estimat Average Glucose Hemoglobin A1c % Lactic Acid Calcium Ferritin Total Bilirubin Direct Bilirubin AST ALT Alkaline Phosphatase Lactate Dehydrogenase Troponin I High Sens C-Reactive Protein Total Protein Albumin Procalcitonin 05/10/20 05/11/20 05/11/20 19:26 07:20 11:17 WBC RBC Hgb Hct MCV MCH MCHC RDW Plt Count MPV Immature Gran % (Auto) Neut % (Auto) Lymph % (Auto) [place] % (Auto) Eos % (Auto) Baso % (Auto) Lymph # (Auto) [place] # (Auto) Eos # (Auto) Baso # (Auto) Abs Immat Gran (auto) Absolute Neuts (auto) Absolute Nucleated RBC Nucleated RBC % (auto) Smear Tech's Comments PT INR APTT D-Dimer Sodium Potassium Chloride Carbon Dioxide Anion Gap BUN Creatinine Estim Creat Clear Calc Estimated GFR POC Glucose 432 H* 169 H 257 H Random Glucose Estimat Average Glucose Hemoglobin A1c % Lactic Acid Calcium Ferritin Total Bilirubin Direct Bilirubin AST ALT Alkaline Phosphatase Lactate Dehydrogenase Troponin I High Sens C-Reactive Protein Total Protein Albumin Procalcitonin 05/11/20 05/11/20 05/12/20 15:29 19:34 08:37 WBC RBC Hgb Hct MCV MCH MCHC RDW Plt Count MPV Immature Gran % (Auto) Neut % (Auto) Lymph % (Auto) [place] % (Auto) Eos % (Auto) Baso % (Auto) Lymph # (Auto) [place] # (Auto) Eos # (Auto) Baso # (Auto) Abs Immat Gran (auto) Absolute Neuts (auto) Absolute Nucleated RBC Nucleated RBC % (auto) Smear Tech's Comments PT INR APTT D-Dimer Sodium Potassium Chloride Carbon Dioxide Anion Gap BUN Creatinine Estim Creat Clear Calc Estimated GFR POC Glucose 245 H 338 H 220 H Random Glucose Estimat Average Glucose Hemoglobin A1c % Lactic Acid Calcium Ferritin Total Bilirubin Direct Bilirubin AST ALT Alkaline Phosphatase Lactate Dehydrogenase Troponin I High Sens C-Reactive Protein Total Protein Albumin Procalcitonin 05/12/20 11:16 WBC RBC Hgb Hct MCV MCH MCHC RDW Plt Count MPV Immature Gran % (Auto) Neut % (Auto) Lymph % (Auto) [place] % (Auto) Eos % (Auto) Baso % (Auto) Lymph # (Auto) [place] # (Auto) Eos # (Auto) Baso # (Auto) Abs Immat Gran (auto) Absolute Neuts (auto) Absolute Nucleated RBC Nucleated RBC % (auto) Smear Tech's Comments PT INR APTT D-Dimer Sodium Potassium Chloride Carbon Dioxide Anion Gap BUN Creatinine Estim Creat Clear Calc Estimated GFR POC Glucose 326 H Random Glucose Estimat Average Glucose Hemoglobin A1c % Lactic Acid Calcium Ferritin Total Bilirubin Direct Bilirubin AST ALT Alkaline Phosphatase Lactate Dehydrogenase Troponin I High Sens C-Reactive Protein Total Protein Albumin Procalcitonin Discharge Plan Discharge Patient Disposition: Home, Self-Care Referrals: Physician,Unknown [Primary Care Provider] - Discharge Medications: Continued celecoxib 200 mg capsule 200 mg PO DAILY RF: 0 sulfasalazine 500 mg tablet 500 mg PO TID RF: 0 aspirin 81 mg tablet,delayed release (DR/EC) 81 mg PO DAILY RF: 0 pantoprazole 40 mg tablet,delayed release (DR/EC) 40 mg PO DAILY RF: 0 gabapentin 300 mg capsule 300 mg PO TID RF: 0 folic acid 1 mg tablet 1 mg PO DAILY RF: 0 loratadine 10 mg tablet 10 mg PO DAILY RF: 0 rosuvastatin [Crestor] 20 mg tablet 20 mg PO DAILY RF: 0 Fish Oil 340-1,000 mg capsule 1 cap PO BID RF: 0 Janumet XR 50-1,000 mg tablet, ER multiphase 24 hr 1 tab PO BID RF: 0 Jardiance 10 mg tablet 10 mg PO DAILY RF: 0 Bystolic 20 mg Tablet 20 mg PO DAILY RF: 0 Discharge Orders: Discharge Order (Routine); Ordered 05/12/20 Ordered By: Tee Avila Activity on Discharge: As tolerated Visit Report Forms: Patient Portal Discharge page Care Plan Goals: recovery Health Concerns: covid Plan of Treatment: copmleted treatement, wean o2 as tolerated, keep saturations in the 90s
--- NOTE | 2020-05-12 14:54 | MHC.CM.PN ---
Pt will d/c to his brother's home (pt resides in [place]) with new O2 services from [facility] set up by respiratory. Pt has an oximeter at home and will use that to teleconference with his PCP in [place] regarding discontinuing the O2. Pt's will provide transportation
== END 2020-05-12 17:18 | disposition home or self-care (01) | DRG 871 ==
LOC: HO.ED 12:12 → HO.ISO 20:49
PROVIDERS: Family Medicine; Internal Medicine; Nurse Practitioner Acute Care; Physician Assistant; Admitting Provider Family Medicine; Emergency Provider Internal Medicine; Visit Provider Internal Medicine
DX: A41.89 Other specified sepsis (principal); U07.1 COVID-19; J96.01 Acute respiratory failure with hypoxia; J12.82 Pneumonia due to coronavirus disease 2019; D69.6 Thrombocytopenia, unspecified; E11.9 Type 2 diabetes mellitus without complications; K21.9 Gastro-esophageal reflux disease without esophagitis; I10 Essential (primary) hypertension; E78.5 Hyperlipidemia, unspecified; M06.9 Rheumatoid arthritis, unspecified; Z79.1 Long term (current) use of non-steroidal anti-inflammatories (NSAID); Z79.82 Long term (current) use of aspirin; Z79.899 Other long term (current) drug therapy
CPT/HCPCS: 36415; 71045; 71275; 80048; 80053; 80076; 82728; 82947; 83036; 83605; 83615; 84145; 84484; 85025; 85027; 85379; 85610; 85730; 86140; 87040; 93005; 96361; 96365; 96366; 96367; 96375; 99285; J0456; J0696; J1100; J1650; J1940; J3490; Q9967

== ENCOUNTER 2024-01-16 11:50 | Emergency (ER) | payer OTHER, SELFPAY ==
--- NOTE | ~2024-01-16 | CT_ITS ---
EXAMINATION: CT ABDOMEN AND PELVIS WITHOUT CONTRAST CLINICAL INFORMATION: Left flank pain COMPARISON: None available. TECHNIQUE: Multidetector volumetric imaging was performed from the superior aspect of the liver through the pubic symphysis. Sagittal and coronal reformatted images were obtained on the technologist's workstation. This CT examination was performed using dose optimization techniques as appropriate, variously including the following: *Automated exposure control *Adjustment of mA and/or kV according to patient size (this includes techniques or standardized protocols for targeted exams where dose is matched to indication/reason for exam; i.e. extremities or head) *Use of iterative reconstruction technique DLP: 709 mGy-cm FINDINGS: LUNG BASES: The visualized lung bases are unremarkable. LIVER, GALLBLADDER, AND BILIARY TREE: Liver is of low attenuation due to hepatic steatosis, without intrahepatic masses or ductal dilatation seen. The gallbladder is unremarkable with no evidence of radiopaque gallstones, gallbladder wall thickening, or obvious pericholecystic inflammatory changes. PANCREAS: Unremarkable. SPLEEN: Spleen is borderline measured 12.4 cm ADRENAL GLANDS: Unremarkable. KIDNEYS AND URETERS: The kidneys are normal in size, shape, and attenuation. No hydronephrosis, hydroureter, or calculi seen. No perinephric stranding. BLADDER: Unremarkable. GASTROINTESTINAL TRACT: There are scattered diverticula seen through the colon without signs of diverticulitis or colitis. Appendix is not seen. ABDOMINAL WALL: No significant hernia is appreciated. LYMPH NODES: Normal. VASCULAR: Unremarkable. PELVIC VISCERA: Unremarkable. OSSEOUS STRUCTURES: There are degenerative changes lower lumbar spine with narrowing, L4-5 and L5-S1 intervertebral disc spaces and marginal spurring. CT/CT abdomen pelvis wo IV con IMPRESSION: 1. No explanation for left flank pain. 2. Hepatic steatosis and borderline splenomegaly. 3. Degenerative changes in lower lumbar spine. Fleischner guidelines were followed. Electronically signed by: Natalia Man MD 01/16/2024 02:53 PM EDT
--- NOTE | ~2024-01-16 | XR_ITS ---
EXAMINATION: XR CHEST CLINICAL INFORMATION: Upper back/left rib pain COMPARISON: 05/04/2020 TECHNIQUE: 2 views of the chest were obtained. FINDINGS: The lungs are mildly hypoinflated. No focal consolidation is seen. No evidence of pneumothorax or pleural effusion. Cardiac size is within normal limits. Calcification is present at the aortic arch. No acute osseous findings are seen. XR/XR chest 2V IMPRESSION: Low lung volumes without acute findings. Electronically signed by: Mauricio Summers MD 01/16/2024 09:10 PM EDT
[2024-01-16 11:53] VITALS: BP 165/88; PULSE 103; RESP 20; TEMP 36.6; O2SAT 95; BMI 35.3
--- NOTE | 2024-01-16 11:54 | ED_ITS ---
HPI - General Adult General Chief complaint: Back Pain/Injury Stated complaint: l flank pain-back pain Time Seen by Provider: 01/16/24 17:36 Source: patient Mode of arrival: ambulatory Limitations: no limitations History of Present Illness ED Provider: Chivo DEL TORO- HPI narrative: 68 yold male with pmh of DM, Covid-19 presents to the ED for left posterior rib pain, left back pain, and left upper abdominal pain with pleurisy since yesterday. Patient states pain is worse on movement. Patient denies any recent trauma. Patient denies any fever, chills, recent long travel, recent surgery, calf pain, or coughing up blood. Patient no rash on chest, abdomen, or back. Patient incontinence. Patient denies any history of any IV drug use Related Data Home Medications ?Medication ?Instructions ?Recorded ?Confirmed aspirin 81 mg tablet,delayed 81 mg PO DAILY 04/30/20 04/30/20 release celecoxib 200 mg capsule 200 mg PO DAILY 04/30/20 04/30/20 empagliflozin 10 mg tablet 10 mg PO DAILY 04/30/20 04/30/20 (Jardiance) folic acid 1 mg tablet 1 mg PO DAILY 04/30/20 04/30/20 gabapentin 300 mg capsule 300 mg PO TID 04/30/20 04/30/20 loratadine 10 mg tablet 10 mg PO DAILY 04/30/20 04/30/20 nebivolol 20 mg tablet (Bystolic) 20 mg PO DAILY 04/30/20 04/30/20 omega-3 fatty acids-fish oil 340 1 cap PO BID 04/30/20 04/30/20 mg-1,000 mg capsule (Fish Oil) pantoprazole 40 mg tablet,delayed 40 mg PO DAILY 04/30/20 04/30/20 release rosuvastatin 20 mg tablet (Crestor) 20 mg PO DAILY 04/30/20 04/30/20 sitagliptin phos 50 mg-metformin 1 tab PO BID 04/30/20 04/30/20 ER 1,000 mg tablet,extend rel 24h mp (Janumet XR) sulfasalazine 500 mg tablet 500 mg PO TID 04/30/20 04/30/20 Previous Rx's ?Medication ?Instructions ?Recorded acetaminophen 325 mg capsule 325 mg PO QID PRN pain 7 days #28 01/16/24 caps cyclobenzaprine 10 mg tablet 10 mg PO TID PRN muscle spasm #15 01/16/24 tabs lidocaine 4 % topical patch 1 patch topical DAILY PRN pain #15 01/16/24 ea prednisone 20 mg tablet 40 mg (2 x 20 mg) PO DAILY 3 days 01/16/24 #6 tabs Allergies Allergy/AdvReac Type Severity Reaction Status Date / Time No Known Allergies Allergy Verified 01/16/24 11:55 Review of Systems 2 Review of Systems: left upper abdominal pain, left posterior rib, and back/flank pain. Negative for any chest pain. positive pleurisy Yes all other systems are reviewed and are negative [facility] Past Medical History Medical History (Updated 01/17/24 @ 00:03 by Porfirio Ramos) Acute respiratory failure with hypoxia Hypercholesteremia Hypertension Diabetes Social History Social History Household Members: Significant Other Housing: House Do you presently have visiting nurse or other home services: No Comment: sleeping Smoked in Last 30 Days: No Use of substances other than those prescribed or required for medical reasons: No Advance Directives: No Advance Directives Information Provided: No Do you have a plan to hurt others: No Plan service: Yes Current occupational status: retired Physical Exam ED Vital Signs: Vital Signs - 24 hr 01/16/24 11:53 01/16/24 19:03 Temperature 97.8 F Pulse Rate 103 H 89 Respiratory Rate 20 18 Blood Pressure 165/88 H 163/88 H Pulse Oximetry 95 97 Oxygen Delivery Method Room Air Room Air BMI result Body Mass Index 35.3 Const General: cooperative, healthy appearing, comfortable, no acute distress, well developed, alert, awake and Physically active Orientation/consciousness: patient oriented x3 HENMT Head: Yes normal to inspection, Yes No palpable skull fracture present, Yes normocephalic, Yes atraumatic and No abrasion Eyes General: appearance normal, both eyes and all related structures Neck Neck: Yes normal visual inspection, Yes full ROM, Yes no lymphadenopathy, Yes no meningeal signs, Yes trachea midline, Yes supple, No anterior neck swelling and No tender Chest Other: negative for rash Chest palpation & inspection: normal inspection of the chest and normal palpation of entire chest wall Resp Effort & Inspection: normal respiratory effort and able to speak in complete sentences Auscultation: clear to auscultation bilaterally Cardio Jugular venous distension: no JVD Heart sounds: S1 normal heart sound present and S2 normal heart sound present GI Inspection: Yes normal to inspection and No abdominal wall ecchymosis Palpation (GI): Tenderness to palpation present (GI) in the LUQ (mild), no guarding and not rigid General: No CVA tenderness and Yes no CVA tenderness Back/Spine/Pelvis Back: no CVA tenderness, No CVA tenderness and No back tenderness Back/spine/pelvis image: 2 1. Tender on palpation.. Worse on range of motion. Negative for spinal tenderness. Negative for crepitus, rash, erythema, ecchymosis, or deformity Skin General skin exam: no rashes or lesions noted, elasticity normal and turgor normal Neuro General: patient oriented x3, gait normal, tone normal, moves all extremities, Normal light touch and pain sensation, no meningeal signs, no focal motor deficits, CN's II-XI intact bilaterally and normal sensation to monofilament Extrem Other: Bilateral lower extremity negative for swelling, pitting edema, or calf tenderness General: Yes normal to inspection, Yes full ROM and Yes capillary refill normal Psych Appearance: grossly normal, well kempt and not disheveled Course Course Course Narrative: RME performed by Temitope Gonzalez PA-C. Patient is a 68 year old assigned male at presenting to the emergency department with left flank pain. Patient states that he has been having left sided flank pain that radiates into his back. Detailed physical exam and review of systems are deferred to the knife edger. EKG, labs, imaging, and swabs ordered. Patient placed back in the waiting room pending room availability and results. Medications Administered Discontinued Medications Generic Name Dose Route Start Last Admin Trade Name Hollandq PRN Reason Stop Dose Admin Ketorolac Tromethamine 30 mg 01/16/24 18:58 01/16/24 20:40 Ketorolac Tromethamine 30 Mg/Ml Vial IM 01/16/24 18:59 30 mg ONCE ONE Administration Medical Decision Making Medical Decision Making MDM Narrative: 68-year-old male presents to ED for left upper abdominal, left posterior rib left flank back pain that is worse on movement and has slight pleural. Any chest pain radiating to the back. Patient denies any chest pain. Patient denies any trauma, recent long travel, recent surgery, calf pain, coughing up blood, fever, or chills. Patient states pain is worse on movement. Initial troponin negative. UA clean. Abdominal CT scan showed lumbar radiculopathy period was 2nd troponin, D-dimer, and to a chest x-ray. 9:19pm: Patient's 2nd troponin negative. Patient's D-dimer negative. Well's Criteria Zero. Patient's chest x-ray negative pneumonia. Not suspecting aortic dissection. Not suspecting PE. Not suspecting pneumothorax/hemothorax. not suspecting renal artery stenosis. Not suspecting pyelonephritis or kidney stones. Pain is muscular. Not suspect epidural abscess or cauda equinus syndrome. Patient informed to follow-up with primary care provider. Differential Diagnosis Differential Diagnoses: The differential diagnosis associated with the presentation includes (Back pain, pneumonia, myocardial infarction,) Admission/Observation Consideration of admission/observation: Escalation of care including admission/observation considered Lab Data MDM Lab Attestation statement: I reviewed the patient's lab results. 01/16/24 12:21 01/16/24 12:21 Labs: Lab Results 01/16/24 01/16/24 01/16/24 Range/Units 12:21 16:49 17:54 WBC 7.1 (4.8-10.8) X10*3/uL RBC 4.61 (4.60-5.80) X10*6/uL Hgb 16.0 (14.0-18.0) g/dl Hct 45.7 (42.0-52.0) % MCV 99.1 H (80.0-98.0) fL MCH 34.7 H (27.0-33.0) pg MCHC 35.0 (31.0-36.0) g/dl RDW 13.0 (11.0-16.0) % Plt Count 127 L (160-400) X10*3/uL MPV 11.5 (9.4-12.4) fL Immature Gran % (Auto) 0.4 (0.0-0.4) % Neut % (Auto) 58.9 (45-73) % Lymph % (Auto) 29.0 (20-40) % [place] % (Auto) 9.6 (2-11) % Eos % (Auto) 1.3 (0-4) % Baso % (Auto) 0.8 (0-2) % Lymph # (Auto) 2.1 (1.2-4.9) X10*3/uL [place] # (Auto) 0.7 (0.1-1.2) X10*3/uL Eos # (Auto) 0.1 (0.0-0.4) X10*3/uL Baso # (Auto) 0.1 (0.0-0.2) X10*3/uL Abs Immat Gran (auto) 0.03 (0.00-0.03) X10*3/uL Absolute Neuts (auto) 4.2 (2.0-8.3) x10*3/uL Absolute Nucleated RBC 0.000 (0.0-0.012) X10*3/uL Nucleated RBC % (auto) 0.0 (0.0-0.2) /100WBC PT 11.0 (10.9-12.4) SEC INR 0.9 (0.9-1.1) APTT 29.2 (26.0-36.8) SEC D-Dimer High Sensitivty < 150 NG/ML Sodium 138 (135-145) mmol/L Potassium 4.4 (3.3-5.1) mmol/L Chloride 103 (96-108) mmol/L Carbon Dioxide 25 (22-29) mmol/L Anion Gap 14 (12-20) BUN 13 (9-16) mg/dL Creatinine 0.96 (0.5-1.4) mg/dL Estim Creat Clear Calc 90.5 Estimated GFR > 60 Random Glucose 259 H (60-115) mg/dL Calcium 9.4 D (8.4-10.2) mg/dL Magnesium 1.9 (1.6-2.6) mg/dL Total Bilirubin 0.7 (0.0-1.0) mg/dL AST 27 (5-37) U/L ALT 32 (0-40) U/L Alkaline Phosphatase 61 (39-117) U/L Troponin I High Sens < 2.7 3.8 (<3.5-35.0) ng/L Total Protein 7.0 (6.5-8.0) g/dL Albumin 4.5 (3.5-5.0) g/dL Lipase 36 (8-78) U/L Urine Color Yellow Urine Appearance Clear Urine pH 6.0 (5.0-9.0) Ur Specific [place] 1.020 (1.005-1.025) Urine Protein Negative (Neg-Trace) mg/dL Urine Glucose (UA) >=1000 H (Negative) mg/dL Urine Ketones Negative (Negative) mg/dL Urine Blood Negative (Negative) Urine Nitrite Negative (Negative) Ur Leukocyte Esterase Negative (Negative) Urine RBC 0-2 (0-2) /HPF Urine WBC 0-5 (0-5) /HPF Ur Squamous Epith Cells 0-2 (0-2) /HPF Urine Bacteria None Seen (None Seen) Hyaline Casts 0-2 (0-2) /LPF Influenza Type A (PCR) NEGATIVE (Negative) Influenza Type B (PCR) NEGATIVE (Negative) RSV RNA Qual (PCR) NEGATIVE (Negative) SARS-CoV-2 RNA (RT-PCR) NEGATIVE (Negative) Independent Interpretation I performed an independent interpretation of an: EKG (Sinus rhythm), Plain X-Ray and CT Scan Radiology Impression Discussion of test interpretation with radiology: I have reviewed the radiologist's reading. Independent Historian Clinical information obtained from an independent historian. History obtained from or confirmed by: Other (Patient) External Record Review External record reviewed: Other (Prior visits) Prescription Management I considered prescription management with: Pain Medication Discharge Plan Discharge Clinical Impression: Lumbar radiculopathy, Flank pain Patient Disposition: Home, Self-Care Instructions: Lumbar Radiculopathy (ED), Flank Pain (ED) Additional Instructions: Recommend follow-up with primary care provider. Return to the ED immediately for any chest pain, shortness of breath, coughing up blood, fever, chills, back pain, flank pain, bloody urine, dysuria, testicular pain, urinary/bowel incontinence, weakness/paralysis of lower extremities, numbness of genital area, or any other concerning symptoms. Prescriptions: New cyclobenzaprine 10 mg tablet 10 mg PO TID PRN (Reason: muscle spasm) Qty: 15 0RF Rx Instructions: Side effects drowsiness. Do not take at work or while driving. prednisone 20 mg tablet 40 mg PO DAILY 3 Days Qty: 6 0RF acetaminophen 325 mg capsule 325 mg PO QID PRN (Reason: pain) 7 Days Qty: 28 0RF lidocaine 4 % adhesive patch,medicated 1 patch topical DAILY PRN (Reason: pain) Qty: 15 0RF No Action celecoxib 200 mg capsule 200 mg PO DAILY sulfasalazine 500 mg tablet 500 mg PO TID aspirin 81 mg tablet,delayed release (DR/EC) 81 mg PO DAILY pantoprazole 40 mg tablet,delayed release (DR/EC) 40 mg PO DAILY gabapentin 300 mg capsule 300 mg PO TID folic acid 1 mg tablet 1 mg PO DAILY loratadine 10 mg tablet 10 mg PO DAILY rosuvastatin [Crestor] 20 mg tablet 20 mg PO DAILY Fish Oil 340-1,000 mg capsule 1 cap PO BID Janumet XR 50-1,000 mg tablet, ER multiphase 24 hr 1 tab PO BID Jardiance 10 mg tablet 10 mg PO DAILY Bystolic 20 mg Tablet 20 mg PO DAILY Stand Alone Forms: Work/School Release Interventions: ED Discharge Assessment Last Done: 01/16/24 21:40 Discharge Date/Time: 01/16/24 21:49 Print Language: Panamanian
--- NOTE | 2024-01-16 11:54 | ECG_ITS ---
Test Reason : lt flank pain Blood Pressure : / mmHG Vent. Rate : 100 BPM Atrial Rate : 100 BPM P-R Int : 162 ms QRS Dur : 086 ms QT Int : 336 ms P-R-T Axes : 042 -20 012 degrees QTc Int : 433 ms Normal sinus rhythm Normal ECG When compared with ECG of 30-APR-2020 14:21, No significant change was found Referred By: Temitope Gonzalez Electronically Signed By:ANTON CARRION
[2024-01-16 12:26] LABS: MANUAL DIFF FLAG NO
[2024-01-16 12:27] LABS: Basophils Absolute Auto 0.1 X10*3/uL (0.0-0.2); Basophils Percent Auto 0.8 % (0-2); Eosinophils Absolute Auto 0.1 X10*3/uL (0.0-0.4); Eosinophils Percent Auto 1.3 % (0-4); Hematocrit 45.7 % (42.0-52.0); Imm Gran Abs Auto 0.03 X10*3/uL (0.00-0.03); Imm Gran Pct Auto 0.4 % (0.0-0.4); Lymphocytes Absolute Auto 2.1 X10*3/uL (1.2-4.9); Mean Corpuscular Hemoglobin 34.7 pg (27.0-33.0); Mean Corpuscular Volume 99.1 fL (80.0-98.0); Mean Platelet Volume 11.5 fL (9.4-12.4); Monocytes Absolute Auto 0.7 X10*3/uL (0.1-1.2); Monocytes Percent Auto 9.6 % (2-11); Neutrophils Absolute Auto 4.2 x10*3/uL (2.0-8.3); Neutrophils Percent Auto 58.9 % (45-73); Platelet Count 127 X10*3/uL (160-400); Red Blood Count 4.61 X10*6/uL (4.60-5.80); White Blood Count 7.1 X10*3/uL (4.8-10.8)
[2024-01-16 12:42] LABS: Alanine Aminotransferase 32 U/L (0-40); Albumin Level 4.5 g/dL (3.5-5.0); Alkaline Phosphatase 61 U/L (39-117); Anion Gap 14 (12-20); Aspartate Amino Transferase 27 U/L (5-37); Bilirubin Total 0.7 mg/dL (0.0-1.0); Blood Urea Nitrogen 13 mg/dL (9-16); Calcium 9.4 mg/dL (8.4-10.2); Carbon Dioxide 25 mmol/L (22-29); Chloride 103 mmol/L (96-108); Creatinine Clr Calc Pharmacy 90.5; Estimated Glomerular Filt Rate > 60; Glucose Random 259 mg/dL (60-115); Lipase 36 U/L (8-78); Magnesium 1.9 mg/dL (1.6-2.6); Potassium 4.4 mmol/L (3.3-5.1); Sodium 138 mmol/L (135-145)
[2024-01-16 12:52] LABS: Troponin-I High Sensitivity < 2.7 ng/L (<3.5-35.0)
[2024-01-16 13:03] LABS: Influenza A PCR NEGATIVE (Negative); Influenza B PCR NEGATIVE (Negative); Resp Syncy Virus RNA Qual PCR NEGATIVE (Negative); SARS COV2 PCR INHOUSE NEGATIVE (Negative)
[2024-01-16 17:04] LABS: Appearance Urine Clear; Color Urine Yellow; Glucose Urine UA >=1000 mg/dL (Negative); Leukocyte Esterase Urine Negative (Negative); Nitrite Urine Negative (Negative); UMIC TRIGGER UACC YES; Urine Blood Negative (Negative); Urine Ketones Negative (Negative); Urine Protein Negative (Neg-Trace)
[2024-01-16 17:29] LABS: Bacteria Urine None Seen (None Seen); Hyaline Casts Urine 0-2 /LPF (0-2); RBC Urine 0-2 /HPF (0-2); Squamous Epithelial Cell Urine 0-2 /HPF (0-2); WBC Urine 0-5 /HPF (0-5)
[2024-01-16 18:07] LABS: INTERNATIONAL NORM RATIO 0.9 (0.9-1.1)
[2024-01-16 18:10] LABS: Partial Thromboplastin Time 29.2 SEC (26.0-36.8)
[2024-01-16 18:19] LABS: Troponin-I High Sensitivity 3.8 ng/L (<3.5-35.0)
[2024-01-16 19:03] VITALS: BP 163/88; PULSE 89; RESP 18; O2SAT 97
[2024-01-16 19:26] LABS: D Dimer High Sensitivity < 150 NG/ML
--- NOTE | 2024-01-16 19:30 | PC.NURSE ---
Assumed care of pt. Notified Charge that provider moved pt into room without notification to nursing staff. Pt urrently pending results.
[2024-01-16] MEDS: Ketorolac Tromethamine 30 MG/ML VIAL IM (20:40)
[2024-01-16 21:40] VITALS: BP 161/74; PULSE 88; RESP 18; TEMP 36.9; O2SAT 95
[2024-01-16 21:45] VITALS: BP 161/74; PULSE 88; RESP 18; TEMP 36.9; O2SAT 95
== END 2024-01-16 21:49 | disposition home or self-care (01) ==
PROVIDERS: Physician Assistant; Physician Assistant Medical; Emergency Provider Emergency Medicine
DX: M54.16 Radiculopathy, lumbar region (principal); R10.12 Left upper quadrant pain; R07.81 Pleurodynia; R09.1 Pleurisy; I10 Essential (primary) hypertension; E11.9 Type 2 diabetes mellitus without complications; Z03.818 Encounter for observation for suspected exposure to other biological agents ruled out
CPT/HCPCS: 0241U; 36415; 71046; 74176; 80053; 81001; 81003; 83690; 83735; 84484; 85025; 85379; 85610; 85730; 93005; 96372; 99284; 99285; J1885